=== PATIENT | male | born 1930 | race Hispanic/Latino ===

== ENCOUNTER 2017-10-09 23:07 | Inpatient (IN) | payer MEDICARE, MEDICAID ==
[~2017-10-09] VITALS: Ht 177.8 cm; Wt 86.2 kg
[~2017-10-09 23:07] MED LIST: ACETAMINOP500 MG/51 ORAL; ALBUTEROL0.63 MG/3 HHN; AMIODARONE HCL400 M1 ORAL; AMIODARONE50 MG/1 ML PO; ATIVAN1 MG ORAL; ATORVASTATIN CA10 MG ORAL; ATROVENT HFA12.9 GM IH; CALCIUM 500 +1 EAC3 PO; COUMADIN1 MG ORAL; DIGOXIN125 MCG ORAL; FAMOTIDINE20 MG ORAL; FLOMAX0.4 MG ORAL; FUROSEMIDE40 MG ORAL; HYDROCHLOROTH12.5 M2 ORAL; LANOXIN0.25 MG/ML PO; LASIX40 MG ORAL; LOPRESSOR5 MG/5 ML PO; METOPROLOL TART50 M1 ORAL; METOPROLOL TART50 MG ORAL; MORPHINE 22 MG/1 ML IV; MULTI VITAMIN1 EACH ORAL; NORCO 10-325 T1 EACH ORAL; NORVASC10 MG ORAL; POTASSIUM CHLO20 ME1 ORAL; PROSCAR5 MG ORAL; RANITIDINE50 MG/2 ML PO; SYNTHROID25 MCG ORAL; TAMSULOSIN HCL0.4 MG ORAL; UNASYN3 GM IVPB; VANCOCIN250 MG IVPB; VANCOMYCIN1 GM/2502 IVPB; XARELTO10 MG ORAL; ZAROXOLYN2.5 MG ORAL; ZOSYN 3.373.375 GM/1 IVPB; ZOVIRAX OINT1 APPLI1 TOPIC; ZOVIRAX200 M1 PO
[2017-10-10] VITALS (7 sets, daily range): BP systolic 117–140; BP diastolic 68–89
[2017-10-10] MEDS ORDERED: LORazepam Inj 2mg/ml 1ml IV PRN (00:30)
[2017-10-10] MEDS ORDERED: Zolpidem 5mg tab ORAL PRN (00:30)
[2017-10-10] MEDS ORDERED: Mylanta II UD 30ml ORAL PRN (00:30)
[2017-10-10] MEDS ORDERED: Miralax 17gm pkt ORAL PRN (00:30)
[2017-10-10] MEDS ORDERED: Morphine Sulfate 2mg/ml Inj IVP PRN (00:30)
[2017-10-10 00:37] LABS: BASOPHILS % (AUTO) 0.9 % (0.0-2.0); EOSINOPHILS % (AUTO) 15.6 % (0.0-3.0); HEMOGLOBIN 12.2 G/DL (14.2-18.0); LYMPHOCYTES % (AUTO) 14.7 % (20.0-45.0); MEAN CORPUSCULAR VOLUME 91 FL (80-99); MONOCYTES % (AUTO) 7.8 % (1.0-10.0); PLATELET COUNT 156 K/UL (150-450); RED BLOOD COUNT 4.05 M/UL (4.70-6.10); RED CELL DISTRIBUTION WIDTH 12.6 % (11.6-14.8); WHITE BLOOD COUNT 8.3 K/UL (4.8-10.8)
[2017-10-10] MEDS ORDERED: TAMSULOSIN HCL0.4 MG ORAL (00:39)
[2017-10-10] MEDS ORDERED: ACETAMINOPHEN325 M1 ORAL (00:39)
[2017-10-10] MEDS ORDERED: DUONEB 0.5-3(2.53 ML HHN (00:39)
[2017-10-10] MEDS ORDERED: MIRALAX17 G2 ORAL (00:39)
[2017-10-10] MEDS ORDERED: METOPROLOL TART50 M1 ORAL (00:39)
[2017-10-10] MEDS ORDERED: XARELTO15 MG ORAL (00:39)
[2017-10-10] MEDS ORDERED: TRAMADOL HCL50 MG ORAL (00:39)
[2017-10-10] MEDS ORDERED: DONEPEZIL HCL10 MG ORAL (00:39)
[2017-10-10] MEDS ORDERED: PROSCAR5 MG ORAL (00:39)
[2017-10-10] MEDS ORDERED: HYDRALAZINE HCL50 MG ORAL (00:39)
[2017-10-10] MEDS ORDERED: KEFLEX500 MG ORAL (00:55)
[2017-10-10] MEDS ORDERED: DOXYCYCLINE MO100 MG ORAL (00:55)
[2017-10-10] MEDS ORDERED: Vancomycin 1.5gm/D5W 250ml 250 ML IVPB ONE (01:00)
--- NOTE | 2017-10-10 01:05 | Emergency Room Report ---
History of Present Illness General Chief Complaint: Lower Extremity Injury Source: Patient, Medical Record Present Illness HPI 87-year-old male, coming from [facility], with right lower tejeda and knee pain swelling and redness for one week. Patient denies any trauma. No fever no chills. Just pain to the area of redness. Allergies: Coded Allergies: No Known Allergies (Verified , 01/31/08) Patient History Past Medical History: see triage record Past Surgical History: none Pertinent Family History: none Reviewed Nursing Documentation: PMH: Agreed, PSxH: Agreed Nursing Documentation-PMH Hx Cardiac Problems: Yes - anemia, heart failure , cellulitis Hx Hypertension: Yes Hx COPD: Yes - VENOUS THROMBOSIS Hx Cancer: No Hx Gastrointestinal Problems: No Hx Dialysis: No - urinary obstruction, BPH, ckd Hx Neurological Problems: Yes Hx Cerebrovascular Accident: Yes Hx Dementia: Yes Hx Alzheimer's Disease: Yes Review of Systems All Other Systems: negative except mentioned in HPI Physical Exam Vital Signs Date Time Temp Pulse Resp B/P (MAP) Pulse Ox O2 Delivery O2 Flow Rate FiO2 10/09/17 23:08 97.7 100 18 150/98 98 Room Air Sp02 EP Interpretation: reviewed, normal General Appearance: alert, GCS 15, non-toxic, mild distress Head: normocephalic, atraumatic Eyes: bilateral eye normal inspection, bilateral eye PERRL, bilateral eye EOMI ENT: normal ENT inspection, normal pharynx, normal voice, moist mucus membranes Neck: normal inspection, full range of motion, supple Respiratory: normal inspection, lungs clear, normal breath sounds, no respiratory distress, no retraction, no wheezing, speaking full sentences, chest symmetrical Cardiovascular #1: normal inspection, regular rate, rhythm, normal capillary refill Cardiovascular #2: 2+ radial (R), 2+ radial (L) Gastrointestinal: normal inspection, non tender, soft, non-distended, no guarding Musculoskeletal: other - Right lateral ankle with mild edema, erythema measuring 5 x 5 cm, tender to palpation, full range of motion of ankle no gross bony deformities Neurologic: normal inspection, alert, oriented x3, responsive, motor strength/ tone normal, sensory intact, normal gait, speech normal Psychiatric: normal inspection, judgement/insight normal, memory normal Skin: normal inspection, normal color, no rash, warm/dry, well hydrated, normal turgor Medical Decision Making Diagnostic Impression: Primary Impression: Cellulitis of leg ER Course 87 yo M with RLE redness/pain DDX: Cellulitis / benign dermatitis No crepitus / pain out of proportion / rapid spreading for concern for nec fasc Plan: labs, Antibiotics Anticipate admission ER course: Patient received antibiotics for cellulitis. Remains nontoxic appearing. There has been no rapid spread of redness/swelling. Disposition: Patient will be admitted to the [facility] floor for continuation of IV antibiotics Discussed with Dr Ruiz Please note that this Emergency Department Report was dictated using [employer] steam yacht technology software, occasionally this can lead to erroneous entry secondary to interpretation by the dictation equipment. Laboratory Tests Test 10/09/17 00:34 White Blood Count 8.3 K/UL (4.8-10.8) Red Blood Count 4.05 M/UL (4.70-6.10) L Hemoglobin 12.2 G/DL (14.2-18.0) L Hematocrit 37.0 % (42.0-52.0) L Mean Corpuscular Volume 91 FL (80-99) Mean Corpuscular Hemoglobin 30.1 PG (27.0-31.0) Mean Corpuscular Hemoglobin Concent 32.9 G/DL (32.0-36.0) Red Cell Distribution Width 12.6 % (11.6-14.8) Platelet Count 156 K/UL (150-450) Mean Platelet Volume 8.2 FL (6.5-10.1) Neutrophils (%) (Auto) 61.0 % (45.0-75.0) Lymphocytes (%) (Auto) 14.7 % (20.0-45.0) L Monocytes (%) (Auto) 7.8 % (1.0-10.0) Eosinophils (%) (Auto) 15.6 % (0.0-3.0) H Basophils (%) (Auto) 0.9 % (0.0-2.0) Sodium Level 140 MMOL/L (136-145) Potassium Level 3.8 MMOL/L (3.5-5.1) Chloride Level 106 MMOL/L (98-107) Carbon Dioxide Level 25 MMOL/L (21-32) Anion Gap 9 mmol/L (5-15) Blood Urea Nitrogen 26 mg/dL (7-18) H Creatinine 1.5 MG/DL (0.55-1.30) H Estimate Glomerular Filtration Rate mL/min (>60) Glucose Level 102 MG/DL (74-106) Calcium Level 9.0 MG/DL (8.5-10.1) Total Bilirubin 0.3 MG/DL (0.2-1.0) Aspartate Amino Transferase (AST) 18 U/L (15-37) Alanine Aminotransferase (ALT) 10 U/L (12-78) L Alkaline Phosphatase 80 U/L (46-116) Total Protein 6.9 G/DL (6.4-8.2) Albumin 2.9 G/DL (3.4-5.0) L Globulin 4.0 g/dL Albumin/Globulin Ratio 0.7 (1.0-2.7) L Last Vital Signs Date Time Temp Pulse Resp B/P (MAP) Pulse Ox O2 Delivery O2 Flow Rate FiO2 10/09/17 23:08 97.7 100 18 150/98 98 Room Air Disposition: ADMITTED INPATIENT Condition: Serious Scripts Doxycycline Monohydrate* (DOXYCYCLINE MONOHYDRATE*) 100 Mg Capsule 100 MG ORAL Q12H for 7 Days, #14 CAP 0 Refills Prov: Mario Barriga M.D. 10/10/17 Cephalexin* (KEFLEX*) 500 Mg Capsule 500 MG ORAL Q6H, #28 CAP 0 Refills Prov: Mario Barriga M.D. 10/10/17 Mario Barriga M.D. Oct 10, 2017 01:05
[2017-10-10 01:17] LABS: ANION GAP 9 mmol/L (5-15); BLOOD UREA NITROGEN 26 mg/dL (7-18); CARBON DIOXIDE 25 MMOL/L (21-32); CHLORIDE 106 MMOL/L (98-107); CREATININE 1.5 MG/DL (0.55-1.30); POTASSIUM 3.8 MMOL/L (3.5-5.1); SODIUM 140 MMOL/L (136-145)
[2017-10-10 01:21] LABS: ALANINE AMINOTRANSFERASE 10 U/L (12-78); ALBUMIN 2.9 G/DL (3.4-5.0); ALBUMIN/GLOBULIN RATIO 0.7 (1.0-2.7); ALKALINE PHOSPHATASE 80 U/L (46-116); ASPARTATE AMINO TRANSFERASE 18 U/L (15-37); BILIRUBIN,TOTAL 0.3 MG/DL (0.2-1.0)
[2017-10-10] MEDS: Levothyroxine 25mcg tab ORAL SCH (06:19)
[2017-10-10] MEDS ORDERED: Digoxin 0.125mg tab ORAL SCH (09:00)
[2017-10-10] MEDS: Xarelto 10mg tab ORAL SCH (10:22)
[2017-10-10] MEDS: Tamsulosin 0.4mg cap ORAL SCH (10:22)
[2017-10-10] MEDS: Amiodarone 200mg tab ORAL SCH (10:22)
--- NOTE | 2017-10-10 14:34 | Consultation ---
Consult Note Assessment/Plan A/ 1) Cellulitis RLE 2) Edema 3) h/o chronic RLE vein thrombosis 4) Abnormal gait P/ 1) Abx per ID 2) Venous ultrasound done, results pending 3) X-rays of RLE ordered 4) Arterial ultz of BLE ordered Thank you Dr Ruiz. Bright Spencer DPM Oct 10, 2017 14:33
--- NOTE | 2017-10-10 18:50 | Consultation ---
History of Present Illness General Date patient seen: Oct 10, 2017 Chief Complaint: Lower Extremity Injury Present Illness HPI 87-year-old male with hx of COPD, CVA, HTN, dvt, CHF coming from group home brought in by ambulance with CC of right lower tejeda and knee pain swelling and redness for one week. Patient denies any trauma. No fever no chills. Just pain to the area of redness. Pt was diagnosed to have cellulitis and admitted for further evaluation. He was found to have ATN as well. Allergies: Coded Allergies: No Known Allergies (Verified , 01/31/08) Medication History Scheduled Acyclovir (Zovirax), 800 MG PO QID, (Reported) Amiodarone Hcl* (Amiodarone Hcl*), 200 MG ORAL DAILY, (Reported) Amlodipine Besylate (Norvasc), 10 MG ORAL DAILY, (Reported) Atorvastatin Calcium* (Lipitor*), 10 MG ORAL BEDTIME, (Reported) Calcium Carbonate/Vitamin D3 (Calcium 500 + D Tablet), 1 EACH PO BID, (Reported) Cephalexin* (Keflex*), 500 MG ORAL Q6H Digoxin* (Digoxin*), 125 MCG ORAL DAILY, (Reported) Donepezil Hcl* (Donepezil Hcl*), 10 MG ORAL DAILY, (Reported) Doxycycline Monohydrate* (Doxycycline Monohydrate*), 100 MG ORAL Q12H Famotidine (Famotidine), 20 MG ORAL DAILY, (Reported) Finasteride* (Proscar*), 5 MG ORAL DAILY, (Reported) Finasteride* (Proscar*), 5 MG ORAL DAILY, (Reported) Furosemide* (Lasix*), 40 MG ORAL DAILY, (Reported) Hydralazine Hcl* (Hydralazine Hcl*), 50 MG ORAL THREE TIMES A DAY, (Reported) Hydrochlorothiazide* (Hydrochlorothiazide*), 12.5 MG ORAL DAILY, (Reported) Levothyroxine Sodium* (Synthroid*), 25 MCG ORAL ACBREAKFAST, (Reported) Lorazepam* (Ativan*), 1 MG ORAL BEDTIME, (Reported) Metolazone (Metolazone), 5 MG ORAL DAILY, (Reported) Metoprolol Tartrate* (Metoprolol Tartrate*), 25 MG ORAL EVERY 12 HOURS, ( Reported) Metoprolol Tartrate* (Metoprolol Tartrate*), 50 MG ORAL DAILY, (Reported) Multivitamin (Multi Vitamin Daily), 1 TAB ORAL DAILY, (Reported) Ungjzxhhkzcm-Juvb-Xfggrdcx,Iso (Zosyn 3.375 Gm Pre Mix-Bag), 3.375 GM IVPB EVERY 8 HOURS, (Reported) Ranitidine Hcl* (Ranitidine Hcl*), 150 MG PO QHS, (Reported) Rivaroxaban (Xarelto*), 20 MG ORAL DAILY, (Reported) Rivaroxaban (Xarelto), 15 MG ORAL DAILY, (Reported) Tamsulosin HCl (Flomax), 0.4 MG ORAL DAILY, (Reported) Tamsulosin Hcl (Tamsulosin Hcl*), 0.4 MG ORAL BEDTIME, (Reported) Vancomycin HCl (Vancocin HCl), 1,000 MG IVPB DAILY, (Reported) Vancomycin Hcl/D5w (Vancomycin-D5w 1 G/250 Ml), 1.25 GM IVPB Q24H, (Reported) Scheduled PRN Acetaminophen (Acetaminophen), 500 MG ORAL Q4H PRN for Pain Scale (3-5), ( Reported) Acetaminophen* (Acetaminophen 325MG Tablet*), 650 MG ORAL Q6H PRN for Fever/ Headache/Mild Pain, (Reported) Acyclovir (Zovirax), 1 APPLIC TOPIC Q12HR PRN for RASH, (Reported) Albuterol Sulfate (Albuterol Sulfate), 0.63 MG HHN Q6HR PRN for Shortness of Breath, (Reported) Hydrocodone Bit/Acetaminophen 10-325* (Lindsay 10-325*), 1 TAB ORAL Q4H PRN for For Pain, (Reported) Ipratropium/Albuterol Sulfate (DuoNeb 0.5-3(2.5)mg/3ml), 3 ML HHN EVERY 8 HOURS PRN for Shortness of Breath, (Reported) Morphine Sulfate* (Morphine Sulfate*), 2 MG IV Q4HR PRN for For Pain, (Reported) Polyethylene Glycol 3350* (Miralax*), 17 GM ORAL DAILY PRN for Constipation, ( Reported) Tramadol Hcl* (Ultram*), 50 MG ORAL Q8HR PRN for For Pain, (Reported) Miscellaneous Medications Ipratropium Barry (Atrovent Hfa), 12.9 GM IH, (Reported) Patient History Healthcare decision maker Resuscitation status Full Code Advanced Directive on File Past Medical/Surgical History Past Medical/Surgical History: (1) DVT (deep venous thrombosis) (2) BPH (benign prostatic hyperplasia) (3) HTN (hypertension) (4) A-fib (5) Dementia Review of Systems Constitutional: Reports: no symptoms, weakness Skin: Reports: rash Physical Exam General Appearance: WD/WN Lines, tubes and drains: peripheral, PICC HEENT: normocephalic, atraumatic Neck: non-tender, normal alignment Respiratory/Chest: chest wall non-tender, lungs clear Breasts: no masses Cardiovascular/Chest: normal peripheral pulses Abdomen: normal bowel sounds, non tender Genitourinary/Rectal: normal genital exam Last 24 Hour Vital Signs Date Time Temp Pulse Resp B/P (MAP) Pulse Ox O2 Delivery O2 Flow Rate FiO2 10/10/17 16:00 97.2 100 20 139/68 98 10/10/17 12:00 97.3 100 20 130/74 96 10/10/17 10:22 105 128/72 10/10/17 10:16 105 128/72 10/10/17 08:00 97.9 100 20 125/81 96 10/10/17 08:00 Room Air 10/10/17 04:30 97.4 111 19 133/89 98 10/10/17 03:41 97.7 18 117/76 98 Room Air 10/09/17 23:08 97.7 100 18 150/98 98 Room Air Intake and Output 10/09/17 10/10/17 19:00 07:00 Intake Total 120 ml Balance 120 ml Intake Oral 120 ml # Voids 1 Height (Feet): 5 Height (Inches): 10.00 Weight (Pounds): 190 Medications Current Medications Medications (Trade) Dose Ordered Sig/Brissa Route PRN Reason Start Time Stop Time Status Last Admin Dose Admin Acetaminophen (Tylenol) 650 mg Q4H PRN ORAL fever 10/10/17 00:30 11/09/17 00:29 Al Hydroxide/Mg Hydroxide (Mylanta II) 30 ml Q6H PRN ORAL dyspepsia 10/10/17 00:30 11/09/17 00:29 Amiodarone HCl (Cordarone) 200 mg DAILY ORAL 10/10/17 09:00 11/09/17 08:59 10/10/17 10:22 Amlodipine Besylate (Norvasc) 10 mg DAILY ORAL 10/10/17 09:00 11/09/17 08:59 10/10/17 10:22 Dextrose (Dextrose 50%) STAT PRN IV Hypoglycemia 10/10/17 00:30 11/09/17 00:29 Digoxin (Lanoxin) 0.125 mg DAILY ORAL 10/10/17 17:30 11/09/17 17:29 Levothyroxine Sodium (Synthroid) 25 mcg ACBREAKFAST ORAL 10/10/17 06:30 11/09/17 06:29 10/10/17 06:19 Lorazepam (Ativan 2mg/ml 1ml) 0.5 mg Q4H PRN IV For Anxiety 10/10/17 00:30 10/17/17 00:29 Morphine Sulfate (Morphine Sulfate) 1 mg Q4H PRN IVP For Pain 10/10/17 00:30 10/17/17 00:29 Ondansetron HCl (Zofran) 4 mg Q6H PRN IVP Nausea & Vomiting 10/10/17 00:30 11/09/17 00:29 Polyethylene Glycol (Miralax) 17 gm HSPRN PRN ORAL Constipation 10/10/17 00:30 11/09/17 00:29 Rivaroxaban (Xarelto) 20 mg DAILY ORAL 10/10/17 09:00 11/09/17 08:59 10/10/17 10:22 Tamsulosin HCl (Flomax) 0.4 mg DAILY ORAL 10/10/17 09:00 11/09/17 08:59 10/10/17 10:22 Zolpidem Tartrate (Ambien) 5 mg HSPRN PRN ORAL Insomnia 10/10/17 00:30 10/17/17 00:29 Assessment/Plan Problem List: (1) Cellulitis of leg ICD Codes: L03.119 - Cellulitis of unspecified part of limb SNOMED: 239259949 (2) HTN (hypertension) ICD Codes: I10 - Essential (primary) hypertension SNOMED: 31940133 (3) A-fib ICD Codes: I48.91 - Unspecified atrial fibrillation SNOMED: 69100139 (4) Dementia ICD Codes: F03.90 - Dementia SNOMED: 96664077 (5) BPH (benign prostatic hyperplasia) ICD Codes: N40.0 - Enlarged prostate without lower urinary tract symptoms SNOMED: 581551516, 589333070 (6) DVT (deep venous thrombosis) ICD Codes: I82.409 - Acute embolism and thrombosis of unspecified deep veins of unspecified lower extremity SNOMED: 910479857 Assessment/Plan vascular studies iv abx check cultures check electroltyes dvt prophylaxis symptomatic treatment RADHA REEVES Oct 10, 2017 18:49
[2017-10-10] MEDS: Digoxin 0.125mg tab ORAL SCH (19:05)
--- NOTE | 2017-10-10 19:22 | Diagnostic Imaging Report ---
Indication: Pain Technique: XRAY Ankle 2v R Comparison: None Findings: No acute fracture. Ankle mortise is intact on these nonstress views. No radiopaque foreign body is identified. There is soft tissue reticulation suggestive of edema. Impression: No evidence of acute fracture or dislocation. Findings suggestive of subcutaneous edema. Correlate clinically.
--- NOTE | 2017-10-10 19:23 | Diagnostic Imaging Report ---
Indication: Pain Technique: XRAY Leg Lower Tib Fib 2v R Comparison: None Findings: There is no acute fracture or dislocation. Partially visualized knee and ankle joints preserved. Atherosclerotic vascular calcifications noted. No radiopaque foreign body seen. Nonspecific soft tissue calcification. Impression: No acute bony or articular abnormality.
[2017-10-11] VITALS: BP 135/74
[2017-10-11 04:00] VITALS: BP 136/85
[2017-10-11] MEDS: Levothyroxine 25mcg tab ORAL SCH (06:24)
--- NOTE | 2017-10-11 07:52 | Pulmonology Progress Note ---
Assessment/Plan Assessment/Plan ASSESSMENT cellulitis RLE chronic DVT RLE HTN PAF BPH CRI COPD hx of CVA hypothyroidism PLAN OF CARE MS floor abx ID consult bl cx prel negative venous Duplex + chronic recanalized RLE thrombus a/coag with Xarelto Arterial Duplex BLE -pending egg setter follows X ray R T/F and R ankle - no evidence of acute fracture or dislocation BP management with CCB and optimize as needed continue Digoxin, check level a/coagulation with Xarelto for PAF and chronic DVT, no evidence of bleeding HR stable lipid panel and TSH WNL pain management bowel regimen O2 HHN prn monitor renal parameters, lytes, avoid nephrotoxic, patient with a known hx of CRI PT eval and Rx case discussed and evaluated by supervising physician Subjective Allergies: Coded Allergies: No Known Allergies (Verified , 01/31/08) Subjective afebrile, no leukocytosis pain RLE Objective Last 24 Hour Vital Signs Date Time Temp Pulse Resp B/P (MAP) Pulse Ox O2 Delivery O2 Flow Rate FiO2 10/11/17 04:00 97.0 94 20 136/85 92 10/11/17 00:00 98.1 98 20 135/74 95 10/10/17 20:00 98.1 96 20 140/86 97 10/10/17 19:05 85 10/10/17 16:00 Room Air 10/10/17 16:00 97.2 100 20 139/68 98 10/10/17 12:00 Room Air 10/10/17 12:00 97.3 100 20 130/74 96 10/10/17 10:22 105 128/72 10/10/17 10:16 105 128/72 10/10/17 08:00 97.9 100 20 125/81 96 10/10/17 08:00 Room Air Intake and Output 10/10/17 10/11/17 19:00 07:00 Intake Total 300 ml Output Total 550 ml Balance 300 ml -550 ml Intake Oral 300 ml Output Urine Total 550 ml # Voids 4 3 General Appearance: other - elderly bedridden male in NAD HEENT: normocephalic, atraumatic, anicteric, mucous membranes moist Respiratory/Chest: lungs clear, no accessory muscle use Cardiovascular: normal rate, no JVD Abdomen: normal bowel sounds, soft, non tender, non distended Extremities: other - RLE with erythema, TTP Neurologic/Psychiatric: abnormal gait, alert, responsive Musculoskeletal: atrophy - BLE Microbiology Date/Time Source Procedure Growth Status 10/10/17 00:20 Blood Blood Culture - Preliminary NO GROWTH AFTER 24 HOURS Resulted 10/10/17 00:15 Blood Blood Culture - Preliminary NO GROWTH AFTER 24 HOURS Resulted Current Medications Medications (Trade) Dose Ordered Sig/Brissa Route PRN Reason Start Time Stop Time Status Last Admin Dose Admin Acetaminophen (Tylenol) 650 mg Q4H PRN ORAL fever 10/10/17 00:30 11/09/17 00:29 Al Hydroxide/Mg Hydroxide (Mylanta II) 30 ml Q6H PRN ORAL dyspepsia 10/10/17 00:30 11/09/17 00:29 Amiodarone HCl (Cordarone) 200 mg DAILY ORAL 10/10/17 09:00 11/09/17 08:59 10/10/17 10:22 Amlodipine Besylate (Norvasc) 10 mg DAILY ORAL 10/10/17 09:00 11/09/17 08:59 10/10/17 10:22 Dextrose (Dextrose 50%) STAT PRN IV Hypoglycemia 10/10/17 00:30 11/09/17 00:29 Digoxin (Lanoxin) 0.125 mg DAILY ORAL 10/10/17 17:30 11/09/17 17:29 10/10/17 19:05 Levothyroxine Sodium (Synthroid) 25 mcg ACBREAKFAST ORAL 10/10/17 06:30 11/09/17 06:29 10/11/17 06:24 Lorazepam (Ativan 2mg/ml 1ml) 0.5 mg Q4H PRN IV For Anxiety 10/10/17 00:30 10/17/17 00:29 Morphine Sulfate (Morphine Sulfate) 1 mg Q4H PRN IVP For Pain 10/10/17 00:30 10/17/17 00:29 Ondansetron HCl (Zofran) 4 mg Q6H PRN IVP Nausea & Vomiting 10/10/17 00:30 11/09/17 00:29 Polyethylene Glycol (Miralax) 17 gm HSPRN PRN ORAL Constipation 10/10/17 00:30 11/09/17 00:29 Rivaroxaban (Xarelto) 20 mg DAILY ORAL 10/10/17 09:00 3/3/18 08:59 10/10/17 10:22 Tamsulosin HCl (Flomax) 0.4 mg DAILY ORAL 10/10/17 09:00 11/09/17 08:59 10/10/17 10:22 Zolpidem Tartrate (Ambien) 5 mg HSPRN PRN ORAL Insomnia 10/10/17 00:30 10/17/17 00:29 Daron ([facility])Symone NP Oct 11, 2017 07:52
[2017-10-11 08:09] VITALS: BP 135/78
[2017-10-11] MEDS: Tamsulosin 0.4mg cap ORAL SCH (08:43)
[2017-10-11] MEDS: Xarelto 10mg tab ORAL SCH (08:43)
[2017-10-11] MEDS: Amiodarone 200mg tab ORAL SCH (08:44)
[2017-10-11 08:51] LABS: BASOPHILS % (AUTO) 1.3 % (0.0-2.0); EOSINOPHILS % (AUTO) 16.7 % (0.0-3.0); HEMATOCRIT 38.5 % (42.0-52.0); HEMOGLOBIN 12.8 G/DL (14.2-18.0); LYMPHOCYTES % (AUTO) 16.2 % (20.0-45.0); MEAN CORPUSCULAR VOLUME 93 FL (80-99); MONOCYTES % (AUTO) 5.5 % (1.0-10.0); NEUTROPHILS % (AUTO) 60.3 % (45.0-75.0); PLATELET COUNT 171 K/UL (150-450); RED BLOOD COUNT 4.15 M/UL (4.70-6.10); RED CELL DISTRIBUTION WIDTH 12.4 % (11.6-14.8); WHITE BLOOD COUNT 7.2 K/UL (4.8-10.8)
[2017-10-11 09:07] LABS: ALANINE AMINOTRANSFERASE 12 U/L (12-78); ALBUMIN 3.1 G/DL (3.4-5.0); ALBUMIN/GLOBULIN RATIO 0.8 (1.0-2.7); ALKALINE PHOSPHATASE 78 U/L (46-116); ANION GAP 9 mmol/L (5-15); ASPARTATE AMINO TRANSFERASE 20 U/L (15-37); BILIRUBIN,TOTAL 0.6 MG/DL (0.2-1.0); BLOOD UREA NITROGEN 20 mg/dL (7-18); CALCIUM 9.1 MG/DL (8.5-10.1); CARBON DIOXIDE 27 MMOL/L (21-32); CHLORIDE 105 MMOL/L (98-107); CHOLESTEROL 154 MG/DL (< 200); CREATININE 1.5 MG/DL (0.55-1.30); HDL CHOLESTEROL 42 MG/DL (40-60); POTASSIUM 3.9 MMOL/L (3.5-5.1); SODIUM 140 MMOL/L (136-145); TRIGLYCERIDES 63 MG/DL (30-150)
--- NOTE | 2017-10-11 09:48 | Wound Care Consultation ---
Wound Assessment Wound Assessment : Wound Number: 1 Wound Present on Admission: Yes New Wound: No Status Change of Wound: No Wound Location Body Site Modif: left, right, lower Wound Location Body Site: leg Wound Type: other - cellulitis John Test: Does not John Percent of Wound [place]/Red: 100 Wound Drainage Amount: None Wound Drainage Odor: None/Absent Tissue Surrounding Wound: Erythemic Wound General Appearance: Reddened Wound Comment #1 Cellulitis of Left and right lower legs. No open wound and no drainage noted. Follow MD's order. JORDIN DIAMOND RN Oct 11, 2017 09:48
[2017-10-11] MEDS: Digoxin 0.125mg tab ORAL SCH (10:37)
--- NOTE | 2017-10-11 11:25 | General Progress Note ---
Assessment/Plan Problem List: (1) CHF (congestive heart failure) ICD Codes: I50.9 - Heart failure, unspecified SNOMED: 51959415 (2) Sepsis ICD Codes: A41.9 - Sepsis, unspecified organism SNOMED: 96910078 (3) Hypothyroid ICD Codes: E03.9 - Hypothyroidism, unspecified SNOMED: 22238876 (4) Dyspnea ICD Codes: R06.00 - Dyspnea, unspecified SNOMED: 476605425, 687944714 (5) A-fib ICD Codes: I48.91 - Unspecified atrial fibrillation SNOMED: 77439105 (6) DVT (deep venous thrombosis) ICD Codes: I82.409 - Acute embolism and thrombosis of unspecified deep veins of unspecified lower extremity SNOMED: 806280507 (7) HTN (hypertension) ICD Codes: I10 - Essential (primary) hypertension SNOMED: 81625154 (8) BPH (benign prostatic hyperplasia) ICD Codes: N40.0 - Enlarged prostate without lower urinary tract symptoms SNOMED: 243086333, 217521825 (9) Cellulitis of leg ICD Codes: L03.119 - Cellulitis of unspecified part of limb SNOMED: 881951655 Status: unchanged Assessment/Plan ot pt diet wound care cbc bmp am Subjective Constitutional: Reports: weakness Allergies: Coded Allergies: No Known Allergies (Verified , 01/31/08) All Systems: reviewed and negative except above Subjective sl sob Objective Last 24 Hour Vital Signs Date Time Temp Pulse Resp B/P (MAP) Pulse Ox O2 Delivery O2 Flow Rate FiO2 10/11/17 10:37 94 10/11/17 08:46 112 121/73 10/11/17 08:09 97.9 96 21 135/78 97 Room Air 10/11/17 04:00 97.0 94 20 136/85 92 10/11/17 00:00 98.1 98 20 135/74 95 10/10/17 20:00 98.1 96 20 140/86 97 10/10/17 19:05 85 10/10/17 16:00 Room Air 10/10/17 16:00 97.2 100 20 139/68 98 10/10/17 12:00 Room Air 10/10/17 12:00 97.3 100 20 130/74 96 Intake and Output 10/10/17 10/11/17 19:00 07:00 Intake Total 300 ml Output Total 550 ml Balance 300 ml -550 ml Intake Oral 300 ml Output Urine Total 550 ml # Voids 4 3 Laboratory Tests 10/11/17 07:56: White Blood Count 7.2, Red Blood Count 4.15L, Hemoglobin 12.8L, Hematocrit 38.5L , Mean Corpuscular Volume 93, Mean Corpuscular Hemoglobin 30.8, Mean Corpuscular Hemoglobin Concent 33.2, Red Cell Distribution Width 12.4, Platelet Count 171, Mean Platelet Volume 9.2, Neutrophils (%) (Auto) 60.3, Lymphocytes (% ) (Auto) 16.2L, Monocytes (%) (Auto) 5.5, Eosinophils (%) (Auto) 16.7H, Basophils (%) (Auto) 1.3, Sodium Level 140, Potassium Level 3.9, Chloride Level 105, Carbon Dioxide Level 27, Anion Gap 9, Blood Urea Nitrogen 20H, Creatinine 1.5H, Estimat Glomerular Filtration Rate , Glucose Level 104, Calcium Level 9.1 , Total Bilirubin 0.6, Aspartate Amino Transf (AST/SGOT) 20, Alanine Aminotransferase (ALT/SGPT) 12, Alkaline Phosphatase 78, Pro-B-Type Natriuretic Peptide 1577H, Total Protein 7.1, Albumin 3.1L, Globulin 4.0, Albumin/Globulin Ratio 0.8L, Triglycerides Level 63, Cholesterol Level 154, LDL Cholesterol 109H , HDL Cholesterol 42, Cholesterol/HDL Ratio 3.7, Thyroid Stimulating Hormone ( TSH) 3.016, Digoxin Level < 0.3L Height (Feet): 5 Height (Inches): 10.00 Weight (Pounds): 190 General Appearance: lethargic EENT: normal ENT inspection Neck: normal alignment Cardiovascular: normal peripheral pulses, normal rate, regular rhythm Respiratory/Chest: chest wall non-tender, lungs clear, normal breath sounds Abdomen: normal bowel sounds, non tender, soft Extremities: normal inspection Edema: 1+ Arm (L), 1+ Arm (R), 1+ Leg (L), 1+ Leg (R), 1+ Pedal (L), 1+ Pedal ( R), 1+ Generalized Neurologic: responsive, motor weakness Skin: normal pigmentation, warm/dry Objective r ankle redness up to mid tejeda LETY MUELLER Oct 11, 2017 11:25
--- NOTE | 2017-10-11 12:11 | General Progress Note ---
Progress Note Progress Note [id number] full note dictated ANNIE MARQUEZ Oct 11, 2017 12:11
[2017-10-11 12:15] VITALS: BP 129/86
--- NOTE | 2017-10-11 12:54 | Consultation ---
DATE OF CONSULTATION: 10/10/2017 REQUESTING PHYSICIAN: Ricardo Ruiz D.O. CONSULTING PHYSICIAN: Bright Spencer D.P.M. REASON FOR CONSULTATION: Right lower extremity pain. HISTORY OF PRESENT ILLNESS: The patient is an 87-year-old male who was admitted to [facility] today for cellulitis of the right lower extremity. The patient states that he noticed pain over the past week to 2 weeks in the right lower extremity that has been worsening. He does not recall any traumatic events or inciting events, and is concerned about the swelling in his right lower extremity. He denies any chest pain or shortness of breath. PAST MEDICAL HISTORY: Significant for, 1. Atrial fibrillation. 2. Chronic kidney disease. 3. Hypertensive heart disease. 4. Benign prostatic hypertrophy. 5. History of hypothyroidism. 6. Anemia. 7. Chronic obstructive pulmonary disease. 8. History of deep vein thrombosis. ALLERGIES: He has no known drug allergies. MEDICATIONS: Per MAR and include morphine for pain. SOCIAL HISTORY: The patient [facility] in a [facility] facility. FAMILY HISTORY: Noncontributory. REVIEW OF SYSTEMS: HEENT: The patient denies any headaches, blurred vision, or ringing in the ears. CARDIOVASCULAR: The patient denies any chest pain or shortness of breath. GENITOURINARY: The patient denies any urgency, frequency, or burning upon urination or hematuria. GASTROINTESTINAL: The patient denies any constipation, diarrhea, or blood in the stool. PHYSICAL EXAMINATION: VITAL SIGNS: Temperature is 97.3, pulse 100, respirations 20, blood pressure is 130/74, and saturating 96% on room air. EXTREMITIES: Lower extremity physical exam, vascular, nonpalpable pedal pulses noted bilaterally. Feet are bilaterally cool. There is edema noted bilaterally, right worse than left. No cyanosis of the toes noted. DERMATOLOGICAL: There is no open sores or lesions noted. There is hyperpigmentation of skin noted, more so on the right lower extremity. There is a focus of edematous changes to the right lower extremity in the posterior calf area. No infection are noted bilaterally. Skin is dry and dystrophic. Venous stasis changes are noted. NEUROLOGICAL: Protective threshold is intact. MUSCULOSKELETAL: He has 4/5 muscle strength noted in anterolateral and posterior muscle groups of bilateral lower extremities. The patient ambulates with a walker and at times with a wheelchair. LABORATORY DATA: White blood cell count is 8.3, hemoglobin and hematocrit is 12.2 and 37.0, platelet count is 156. Potassium is 3.6, BUN is 26, creatinine is 1.5, glucose is 102, albumin is 2.9. Venous ultrasound done on this admission shows recanalized chronic thrombus of the superficial femoral vein. Remainder of the deep venous system is within normal limits. There is no evidence of any common femoral or popliteal or calf vein thrombosis of the right lower extremity. Left lower extremity is patent. ASSESSMENT: 1. Cellulitis, right lower extremity. 2. Edema. 3. History of chronic right lower extremity venous thrombosis. 4. Abnormal gait. PLAN: 1. Antibiotics per ID. 2. Venous ultrasound done and reviewed. 3. X-ray to the right lower extremity ordered including a tib-fib and ankle films. 4. Arterial ultrasound of bilateral lower extremities ordered. Thank you for the courtesy of this consultation. Bright Spencer D.P.M. DR: GILLES JOB#: [id number] CC:
--- NOTE | 2017-10-11 12:56 | History and Physical Report ---
DATE OF ADMISSION: 10/10/2017 TIME SEEN: At 1 p.m. ATTENDING PHYSICIAN: Ricardo Ruiz D.O. CONSULTANTS: 1. Toney Narayan M.D. 2. Dr. Trotter. 3. Bright Spencer D.P.M. 4. Alexy Recio M.D. CHIEF COMPLAINT: Right leg cellulitis wound. BRIEF HISTORY: This is an 87-year-old male, who lives at , presented with above-mentioned diagnosis, admitted to medical floor for further treatment. Currently, calm in bed. No complaint. REVIEW OF SYSTEMS: No chest pain. No shortness of breath. No nausea, vomiting, or diarrhea. PAST MEDICAL HISTORY: Includes dementia, CHF, hypertension, atrial fibrillation, hypothyroid, BPH, CAD, and DVT. PAST SURGICAL HISTORY: Unknown. MEDICATIONS: Include Cardura, Norvasc, Xarelto, Flomax, Lanoxin, Synthroid, Tylenol, morphine, MiraLAX, Zofran, Ambien, and Ativan. ALLERGIES: Denies. SOCIAL HISTORY: No smoking. No alcohol. No intravenous drug use. FAMILY HISTORY: Noncontributory. PHYSICAL EXAMINATION: GENERAL: Calm in bed, oriented x2, no acute distress. VITAL SIGNS: Show temperature is 97, pulse 100, respirations 20, and blood pressure 130/74. CARDIOVASCULAR: No murmur. PULMONARY: Distant and clear. ABDOMEN: Bowel sound distant. EXTREMITIES: Show no cyanosis or clubbing. There is 1+ edema. Right slightly red and slightly swollen. NEUROLOGIC: The patient moves all extremities, slightly weak. LABORATORY DATA: Labs show hemoglobin 12.2, otherwise CBC is normal. BMP shows BUN and creatinine 26 and 1.5, otherwise normal. ASSESSMENT: 1. Right lower extremity cellulitis. 2. Dementia. 3. Anemia. 4. Renal insufficiency. 5. Congestive heart failure. 6. Hypertension. 7. Atrial fibrillation. 8. Hypothyroid. 9. Benign prostatic hypertrophy. 10. Deep venous thrombosis. PLAN: 1. Continue premeds. 2. Wound care. 3. OT, PT, and dietary followup. 4. Blood pressure and blood sugar control. 5. Pain control. 6. Antibiotics per Infectious Diseases. 7. Dr. Narayan, Dr. Trotter, Dr. Recio, Dr. Spencer, Dr. Miller, and Eric to consult. 8. We will continue to follow this patient medically. Ricardo Ruiz D.O. DR: CINTHYA JOB#: [id number] CC:
--- NOTE | 2017-10-11 12:56 | Consultation ---
DATE OF CONSULTATION: 10/10/2017 HEMATOLOGY/ONCOLOGY CONSULTATION CONSULTING PHYSICIAN: Alon Mixon M.D. REFERRING PHYSICIAN: Ricardo Ruiz D.O. REASON FOR CONSULTATION: Evaluation of anemia. IDENTIFYING DATA: Dear Dr. Ricardo Ruiz: I thank you for this kind referral. This is a patient with right lower extremity deep vein thrombosis. He presents at this time to [facility]. He presented to the ER last night. He is a residential resident with right lower extremity tejeda and knee pain as well as swelling for the last week as noted in the record. Pain noted at the site with some redness. Hematology Service consulted given history of venous thrombosis in the past. He has a history of venous duplex performed in 2016 with a recanalized chronic thrombosis in the superficial femoral vein. At this time, we will order for venous duplex, which was ordered by Dr. Narayan. Results are pending at this time. The patient does not have any evidence of DVT. We will consider to stop Xarelto. PAST MEDICAL HISTORY: Hypertension, CAD, status post VT, atrial fibrillation, CHF, CVA, TIA . MEDICATIONS: Tylenol, albuterol, amiodarone, Norvasc, Lipitor, calcium carbonate, digoxin, Pepcid, hydrochlorothiazide, Mountain, metoprolol, morphine, K-Dur, Xarelto, and Flomax. ALLERGIES: No known drug allergies. SOCIAL HISTORY: No alcohol, tobacco, or illicit drug use. skilled nursing resident. FAMILY HISTORY: Noncontributory. No history of coronary artery disease in the first-degree relatives. REVIEW OF SYSTEMS: A 12-point review of systems is completed, otherwise negative. PHYSICAL EXAMINATION: VITAL SIGNS: Reviewed. GENERAL: In no distress. PULMONARY: Decreased breath sounds. CARDIOVASCULAR: Regular rate. No S3 or S4. ABDOMEN: Soft, nontender, and nondistended. EXTREMITIES: edema. LABORATORY AND DIAGNOSTIC DATA: WBC 8.3, hemoglobin 12.2, hematocrit 37, platelet count 156,000. INR 1.4. Creatinine 1.5. ASSESSMENT AND RECOMMENDATIONS: 1. 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 The patient has been on Xarelto. Most recent imaging completed in June 2016. Continue Xarelto for deep venous thrombosis. If deep venous thrombosis resolves, consider to stop Xarelto. 2. Anemia due to underlying chronic disease. It is chronic in nature. Continue to closely monitor at this time; however, workup at this particular moment. 3. Cellulitis of the right lower extremity. Continue antibiotics as per Infectious Disease team. 4. Edema. 5. Abnormal gait. 6. Coronary artery disease. 7. Psychiatric disorder. I appreciate the consultation. Alon Mixon M.D. DR: NAA JOB#: [id number] CC:
--- NOTE | 2017-10-11 14:17 | Diagnostic Imaging Report ---
Indication: Dyspnea Comparison: 05/31/2016 A single view chest radiograph was obtained. Findings: Development of of the hazy right opacity hemithorax noted. Pulmonary vascularity appears slightly prominent but stable. Heart is enlarged. IMPRESSION: Suspected right pleural effusion. Query CHF. Please correlate clinically
[2017-10-11 16:00] VITALS: BP 117/72
[2017-10-11 20:56] VITALS: BP 111/65
[2017-10-12] VITALS: BP 127/81
--- NOTE | 2017-10-12 03:30 | Consultation ---
DATE OF CONSULTATION: 10/11/2017 NEPHROLOGY CONSULTATION CONSULTING PHYSICIAN: Sully Reyes M.D. REFERRING PHYSICIAN: Ricardo Ruiz D.O. REASON FOR CONSULTATION: Acute versus chronic renal failure. HISTORY OF PRESENT ILLNESS: The patient is an 87-year-old unfortunate male with past medical history significant for chronic kidney disease, baseline creatinine is unknown, history of COPD, CVA, hypertension, and CHF who was sent to emergency room at [facility] for evaluation of left tejeda swelling and redness for one week. The patient was admitted with a diagnosis of cellulitis of right lower extremity. Over the course of hospital admission, the patient was found to have a creatinine of 1.5. I was called for management of renal disease and electrolyte imbalance. PAST MEDICAL HISTORY: 1. History of DVT in the past. 2. History of BPH. 3. History of hypertension. 4. History of hypothyroidism. 5. History of AFib. 6. History of dementia. 7. History of dyslipidemia. 8. History of chronic kidney disease, baseline creatinine is unknown. MEDICATIONS: 1. Acyclovir 800 mg p.o. daily. 2. Amiodarone 200 mg p.o. daily. 3. Amlodipine 10 mg p.o. daily. 4. Lipitor 10 mg p.o. daily. 5. Vitamin D and calcium one tablet p.o. daily. 6. Keflex p.o. 7. Digoxin 125 mcg daily. 8. Aricept 10 mg p.o. daily. 9. Doxycycline 100 mg daily. 10. Famotidine 20 mg p.o. daily. 11. Finasteride 5 mg p.o. daily. 12. Lasix 40 mg daily. 13. Hydralazine 50 mg p.o. t.i.d. 14. Levothyroxine 20 mcg daily. 15. Ativan 1 mg p.r.n. 16. Metolazone 5 mg p.o. daily. 17. Metoprolol 25 mg p.o. daily. 18. Flomax 0.4 mg p.o. daily. 19. Vancomycin. ALLERGIES: No known drug allergies. SOCIAL HISTORY: He is a half-way resident. There is no history of current tobacco, alcohol, or drug use. REVIEW OF SYSTEMS: GENERAL: There was no fever or chills was reported. PULMONARY: No shortness of breath, cough, or sputum. CARDIOVASCULAR: There was no chest pain or palpitation. GASTROINTESTINAL: There was a good appetite. No nausea or vomiting. GENITOURINARY: Having history of BPH. No other event. PHYSICAL EXAMINATION: VITAL SIGNS: The patient had a temperature of 98 degrees, blood pressure of 140/86, pulse rate of 96, and respiratory rate of 18. HEAD AND NECK: No JVP. No LAD. No thyromegaly. Extraocular movement intact. Pupils are reactive to light and accommodation. LUNGS: Decreased breathing sounds. CARDIAC: Regular rate and rhythm. S1 and S2. No murmur. No rub. ABDOMEN: Soft, nontender, and nondistended. EXTREMITIES: Right lower extremity from mid tejeda to the lower part is red. It has some ulceration. No active discharge was noted. LABORATORY AND DIAGNOSTIC DATA: Lab value revealed sodium of 140, potassium of 3.9, chloride 105, bicarbonate 27, BUN of 20, creatinine of 1.5, and glucose of 104. Calcium of 9.5. AST of 20, ALT of 12, and alkaline phosphatase of 78. BNP is 1577. Albumin is 3.1. Cholesterol is 154, LDL 109, and HDL of 42. There is no UA. ASSESSMENT: 1. 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 2. Malnutrition with low albumin. 3. Right lower extremity cellulitis. 4. Right lower extremity deep venous thrombosis. 5. Hypertension, well controlled at this point. 6. History of hypothyroidism. 7. Mild anemia. 8. History of atrial fibrillation. PLAN: Plan for the patient is to obtain a UA. Check the random urine protein/creatinine ratio to calculate the proteinuria. Check the urine sodium and creatinine to calculate fractional excretion of sodium. Ultrasound of the kidney to evaluate the kidney size. Check urine eosinophil. I would check the I's and O's. Monitor renal function and electrolytes closely. Again, I would like to thank Dr. Ricardo Ruiz for allowing me to participate in the care of this patient. Sully Reyes M.D. DR: JAMES JOB#: [id number] CC:
[2017-10-12 04:00] VITALS: BP 133/87
[2017-10-12] MEDS: Levothyroxine 25mcg tab ORAL SCH (05:44)
[2017-10-12 07:52] LABS: BASOPHILS % (AUTO) 1.1 % (0.0-2.0); EOSINOPHILS % (AUTO) 18.9 % (0.0-3.0); HEMATOCRIT 37.5 % (42.0-52.0); HEMOGLOBIN 12.5 G/DL (14.2-18.0); LYMPHOCYTES % (AUTO) 14.4 % (20.0-45.0); MEAN CORPUSCULAR VOLUME 92 FL (80-99); MONOCYTES % (AUTO) 8.5 % (1.0-10.0); NEUTROPHILS % (AUTO) 57.2 % (45.0-75.0); PLATELET COUNT 173 K/UL (150-450); RED BLOOD COUNT 4.08 M/UL (4.70-6.10); RED CELL DISTRIBUTION WIDTH 12.8 % (11.6-14.8); WHITE BLOOD COUNT 7.6 K/UL (4.8-10.8)
[2017-10-12 08:00] VITALS: BP 149/89
[2017-10-12 08:13] LABS: ANION GAP 8 mmol/L (5-15); BLOOD UREA NITROGEN 20 mg/dL (7-18); CALCIUM 8.7 MG/DL (8.5-10.1); CARBON DIOXIDE 25 MMOL/L (21-32); CHLORIDE 107 MMOL/L (98-107); CREATININE 1.5 MG/DL (0.55-1.30); POTASSIUM 3.8 MMOL/L (3.5-5.1); SODIUM 140 MMOL/L (136-145)
--- NOTE | 2017-10-12 08:57 | Pulmonology Progress Note ---
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 X ray R T/F and R ankle - no evidence of acute fracture or dislocation BP management with CCB and optimize as needed continue Digoxin, check level a/coagulation with Xarelto for PAF and chronic DVT, no evidence of bleeding HR stable lipid panel and TSH WNL pain management bowel regimen O2 HHN prn monitor renal parameters, lytes, avoid nephrotoxic, patient with a known hx of CRI , creat remains at vbaseline PT eval and Rx case discussed and evaluated by supervising physician Subjective Allergies: Coded Allergies: No Known Allergies (Verified , 01/31/08) Subjective afebrile, no leukocytosis pain RLE Objective Last 24 Hour Vital Signs Date Time Temp Pulse Resp B/P (MAP) Pulse Ox O2 Delivery O2 Flow Rate FiO2 10/12/17 08:00 97.1 99 18 149/89 94 10/12/17 04:00 97.5 99 21 133/87 97 Room Air 10/12/17 00:00 97.7 97 20 127/81 94 Room Air 10/11/17 20:56 100.0 94 20 111/65 97 Room Air 10/11/17 16:00 Room Air 10/11/17 16:00 98.0 93 20 117/72 95 10/11/17 12:15 97.7 108 20 129/86 97 Room Air 10/11/17 10:37 94 Intake and Output 10/11/17 10/12/17 19:00 07:00 Intake Total 600 ml Output Total 400 ml Balance 200 ml Intake Oral 600 ml Output Urine Total 400 ml # Voids 3 1 Microbiology Date/Time Source Procedure Growth Status 10/10/17 00:20 Blood Blood Culture - Preliminary NO GROWTH AFTER 24 HOURS Resulted 10/10/17 00:15 Blood Blood Culture - Preliminary NO GROWTH AFTER 24 HOURS Resulted Laboratory Tests 10/11/17 19:00: Urine Random Sodium 108, Urine Creatinine 181.4H 10/12/17 04:22: Urine Eosinophils None seen, Urine Random Total Protein 23H 10/12/17 06:05: White Blood Count 7.6, Red Blood Count 4.08L, Hemoglobin 12.5L, Hematocrit 37.5L , Mean Corpuscular Volume 92, Mean Corpuscular Hemoglobin 30.6, Mean Corpuscular Hemoglobin Concent 33.3, Red Cell Distribution Width 12.8, Platelet Count 173, Mean Platelet Volume 8.9, Neutrophils (%) (Auto) 57.2, Lymphocytes (% ) (Auto) 14.4L, Monocytes (%) (Auto) 8.5, Eosinophils (%) (Auto) 18.9H, Basophils (%) (Auto) 1.1, Sodium Level 140, Potassium Level 3.8, Chloride Level 107, Carbon Dioxide Level 25, Anion Gap 8, Blood Urea Nitrogen 20H, Creatinine 1.5H, Estimat Glomerular Filtration Rate , Glucose Level 84, Calcium Level 8.7 Current Medications Medications (Trade) Dose Ordered Sig/Brissa Route PRN Reason Start Time Stop Time Status Last Admin Dose Admin Acetaminophen (Tylenol) 650 mg Q4H PRN ORAL fever 10/10/17 00:30 11/09/17 00:29 Al Hydroxide/Mg Hydroxide (Mylanta II) 30 ml Q6H PRN ORAL dyspepsia 10/10/17 00:30 11/09/17 00:29 Amiodarone HCl (Cordarone) 200 mg DAILY ORAL 10/10/17 09:00 11/09/17 08:59 10/11/17 08:44 Amlodipine Besylate (Norvasc) 10 mg DAILY ORAL 10/10/17 09:00 11/09/17 08:59 10/11/17 08:46 Dextrose (Dextrose 50%) STAT PRN IV Hypoglycemia 10/10/17 00:30 11/09/17 00:29 Digoxin (Lanoxin) 0.125 mg DAILY ORAL 10/10/17 17:30 11/09/17 17:29 10/11/17 10:37 Levothyroxine Sodium (Synthroid) 25 mcg ACBREAKFAST ORAL 10/10/17 06:30 11/09/17 06:29 10/12/17 05:44 Lorazepam (Ativan 2mg/ml 1ml) 0.5 mg Q4H PRN IV For Anxiety 10/10/17 00:30 10/17/17 00:29 Morphine Sulfate (Morphine Sulfate) 1 mg Q4H PRN IVP For Pain 10/10/17 00:30 10/17/17 00:29 Ondansetron HCl (Zofran) 4 mg Q6H PRN IVP Nausea & Vomiting 10/10/17 00:30 11/09/17 00:29 Polyethylene Glycol (Miralax) 17 gm HSPRN PRN ORAL Constipation 10/10/17 00:30 11/09/17 00:29 Rivaroxaban (Xarelto) 20 mg DAILY ORAL 10/10/17 09:00 11/09/17 08:59 10/11/17 08:43 Tamsulosin HCl (Flomax) 0.4 mg DAILY ORAL 10/10/17 09:00 11/09/17 08:59 10/11/17 08:43 Zolpidem Tartrate (Ambien) 5 mg HSPRN PRN ORAL Insomnia 10/10/17 00:30 10/17/17 00:29 Daron ([facility])Symone NP Oct 12, 2017 08:57
--- NOTE | 2017-10-12 08:59 | General Progress Note ---
Assessment/Plan Problem List: (1) CHF (congestive heart failure) ICD Codes: I50.9 - Heart failure, unspecified SNOMED: 92537579 (2) Sepsis ICD Codes: A41.9 - Sepsis, unspecified organism SNOMED: 19119041 (3) Hypothyroid ICD Codes: E03.9 - Hypothyroidism, unspecified SNOMED: 10113345 (4) Dyspnea ICD Codes: R06.00 - Dyspnea, unspecified SNOMED: 638448024, 986076401 (5) A-fib ICD Codes: I48.91 - Unspecified atrial fibrillation SNOMED: 13845235 (6) DVT (deep venous thrombosis) ICD Codes: I82.409 - Acute embolism and thrombosis of unspecified deep veins of unspecified lower extremity SNOMED: 134067124 (7) HTN (hypertension) ICD Codes: I10 - Essential (primary) hypertension SNOMED: 28559924 (8) BPH (benign prostatic hyperplasia) ICD Codes: N40.0 - Enlarged prostate without lower urinary tract symptoms SNOMED: 084421310, 757620219 (9) Cellulitis of leg ICD Codes: L03.119 - Cellulitis of unspecified part of limb SNOMED: 458174498 Status: unchanged Assessment/Plan ot pt diet wound care cbc bmp am dc plan Subjective Constitutional: Reports: weakness Allergies: Coded Allergies: No Known Allergies (Verified , 01/31/08) All Systems: reviewed and negative except above Subjective sl sob Objective Last 24 Hour Vital Signs Date Time Temp Pulse Resp B/P (MAP) Pulse Ox O2 Delivery O2 Flow Rate FiO2 10/12/17 08:00 97.1 99 18 149/89 94 10/12/17 04:00 97.5 99 21 133/87 97 Room Air 10/12/17 00:00 97.7 97 20 127/81 94 Room Air 10/11/17 20:56 100.0 94 20 111/65 97 Room Air 10/11/17 16:00 Room Air 10/11/17 16:00 98.0 93 20 117/72 95 10/11/17 12:15 97.7 108 20 129/86 97 Room Air 10/11/17 10:37 94 Intake and Output 10/11/17 10/12/17 19:00 07:00 Intake Total 600 ml Output Total 400 ml Balance 200 ml Intake Oral 600 ml Output Urine Total 400 ml # Voids 3 1 Laboratory Tests 10/11/17 19:00: Urine Random Sodium 108, Urine Creatinine 181.4H 10/12/17 04:22: Urine Eosinophils None seen, Urine Random Total Protein 23H 10/12/17 06:05: White Blood Count 7.6, Red Blood Count 4.08L, Hemoglobin 12.5L, Hematocrit 37.5L , Mean Corpuscular Volume 92, Mean Corpuscular Hemoglobin 30.6, Mean Corpuscular Hemoglobin Concent 33.3, Red Cell Distribution Width 12.8, Platelet Count 173, Mean Platelet Volume 8.9, Neutrophils (%) (Auto) 57.2, Lymphocytes (% ) (Auto) 14.4L, Monocytes (%) (Auto) 8.5, Eosinophils (%) (Auto) 18.9H, Basophils (%) (Auto) 1.1, Sodium Level 140, Potassium Level 3.8, Chloride Level 107, Carbon Dioxide Level 25, Anion Gap 8, Blood Urea Nitrogen 20H, Creatinine 1.5H, Estimat Glomerular Filtration Rate , Glucose Level 84, Calcium Level 8.7 Height (Feet): 5 Height (Inches): 10.00 Weight (Pounds): 190 General Appearance: lethargic EENT: normal ENT inspection Neck: normal alignment Cardiovascular: normal peripheral pulses, normal rate, regular rhythm Respiratory/Chest: chest wall non-tender, lungs clear, normal breath sounds Abdomen: normal bowel sounds, non tender, soft Extremities: normal inspection Edema: no edema noted Arm (L), no edema noted Arm (R), no edema noted Leg (L), no edema noted Leg (R), no edema noted Pedal (L), no edema noted Pedal (R), no edema noted Generalized Neurologic: motor weakness Skin: normal pigmentation, warm/dry Objective r ankle redness up to mid tejeda LETY MUELLER Oct 12, 2017 08:59
[2017-10-12] MEDS: Amiodarone 200mg tab ORAL SCH (09:43)
[2017-10-12] MEDS: Tamsulosin 0.4mg cap ORAL SCH (09:43)
[2017-10-12] MEDS: Xarelto 10mg tab ORAL SCH (09:44)
[2017-10-12] MEDS: Digoxin 0.125mg tab ORAL SCH (09:47)
[2017-10-12 12:00] VITALS: BP 127/86
--- NOTE | 2017-10-12 15:40 | Pulmonology Progress Note ---
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 follows X ray R T/F and R ankle - no evidence of acute fracture or dislocation BP management with CCB and optimize as needed continue Digoxin, check level a/coagulation with Xarelto for PAF and chronic DVT, no evidence of bleeding HR stable lipid panel and TSH WNL pain management bowel regimen O2 HHN prn monitor renal parameters, lytes, avoid nephrotoxic, patient with a known hx of CRI , creat remains at vbaseline PT eval and Rx case discussed and evaluated by supervising physician Subjective Allergies: Coded Allergies: No Known Allergies (Verified , 01/31/08) Subjective afebrile, no leukocytosis pain RLE Objective Last 24 Hour Vital Signs Date Time Temp Pulse Resp B/P (MAP) Pulse Ox O2 Delivery O2 Flow Rate FiO2 10/12/17 12:00 98.0 102 18 127/86 96 10/12/17 09:47 99 10/12/17 09:43 99 149/89 10/12/17 08:00 97.1 99 18 149/89 94 10/12/17 04:00 97.5 99 21 133/87 97 Room Air 10/12/17 00:00 97.7 97 20 127/81 94 Room Air 10/11/17 20:56 100.0 94 20 111/65 97 Room Air 10/11/17 16:00 Room Air 10/11/17 16:00 98.0 93 20 117/72 95 Intake and Output 10/11/17 10/12/17 19:00 07:00 Intake Total 600 ml Output Total 400 ml Balance 200 ml Intake Oral 600 ml Output Urine Total 400 ml # Voids 3 1 Objective General Appearance: other - elderly bedridden male in NAD HEENT: normocephalic, atraumatic, anicteric, mucous membranes moist Respiratory/Chest: lungs clear, no accessory muscle use Cardiovascular: normal rate, no JVD Abdomen: normal bowel sounds, soft, non tender, non distended Extremities: other - RLE with erythema, TTP Neurologic/Psychiatric: abnormal gait, alert, responsive Musculoskeletal: atrophy - BLE Microbiology Date/Time Source Procedure Growth Status 10/10/17 00:20 Blood Blood Culture - Preliminary NO GROWTH AFTER 48 HOURS Resulted 10/10/17 00:15 Blood Blood Culture - Preliminary NO GROWTH AFTER 48 HOURS Resulted 10/10/17 03:08 Nasal Nares MRSA Culture - Final NO METHICILLIN RESISTANT STAPH AUREUS... Complete 10/10/17 03:08 Rectum VRE Culture - Final NO VANCOMYCIN RESISTANT ENTEROCOCCUS ... Complete Laboratory Tests 10/11/17 19:00: Urine Random Sodium 108, Urine Creatinine 181.4H 10/12/17 04:22: Urine Eosinophils None seen, Urine Random Creatinine [Pending], Urine Random Microalbumin [Pending], Urine Random Total Protein 23H, Urine Microalbumin/ Creatinine Ratio [Pending] 10/12/17 06:05: White Blood Count 7.6, Red Blood Count 4.08L, Hemoglobin 12.5L, Hematocrit 37.5L , Mean Corpuscular Volume 92, Mean Corpuscular Hemoglobin 30.6, Mean Corpuscular Hemoglobin Concent 33.3, Red Cell Distribution Width 12.8, Platelet Count 173, Mean Platelet Volume 8.9, Neutrophils (%) (Auto) 57.2, Lymphocytes (% ) (Auto) 14.4L, Monocytes (%) (Auto) 8.5, Eosinophils (%) (Auto) 18.9H, Basophils (%) (Auto) 1.1, Sodium Level 140, Potassium Level 3.8, Chloride Level 107, Carbon Dioxide Level 25, Anion Gap 8, Blood Urea Nitrogen 20H, Creatinine 1.5H, Estimat Glomerular Filtration Rate , Glucose Level 84, Calcium Level 8.7 Current Medications Medications (Trade) Dose Ordered Sig/Brissa Route PRN Reason Start Time Stop Time Status Last Admin Dose Admin Acetaminophen (Tylenol) 650 mg Q4H PRN ORAL fever 10/10/17 00:30 11/09/17 00:29 Al Hydroxide/Mg Hydroxide (Mylanta II) 30 ml Q6H PRN ORAL dyspepsia 10/10/17 00:30 11/09/17 00:29 Amiodarone HCl (Cordarone) 200 mg DAILY ORAL 10/10/17 09:00 11/09/17 08:59 10/12/17 09:43 Amlodipine Besylate (Norvasc) 10 mg DAILY ORAL 10/10/17 09:00 11/09/17 08:59 10/12/17 09:43 Dextrose (Dextrose 50%) STAT PRN IV Hypoglycemia 10/10/17 00:30 11/09/17 00:29 Digoxin (Lanoxin) 0.125 mg DAILY ORAL 10/10/17 17:30 11/09/17 17:29 10/12/17 09:47 Donepezil HCl (Aricept) 10 mg QHS ORAL 10/12/17 21:00 11/11/17 20:59 Levothyroxine Sodium (Synthroid) 25 mcg ACBREAKFAST ORAL 10/10/17 06:30 11/09/17 06:29 10/12/17 05:44 Lorazepam (Ativan 2mg/ml 1ml) 0.5 mg Q4H PRN IV For Anxiety 10/10/17 00:30 10/17/17 00:29 Morphine Sulfate (Morphine Sulfate) 1 mg Q4H PRN IVP For Pain 10/10/17 00:30 10/17/17 00:29 Ondansetron HCl (Zofran) 4 mg Q6H PRN IVP Nausea & Vomiting 10/10/17 00:30 11/09/17 00:29 Polyethylene Glycol (Miralax) 17 gm HSPRN PRN ORAL Constipation 10/10/17 00:30 11/09/17 00:29 Rivaroxaban (Xarelto) 20 mg DAILY ORAL 10/10/17 09:00 11/09/17 08:59 10/12/17 09:44 Tamsulosin HCl (Flomax) 0.4 mg DAILY ORAL 10/10/17 09:00 11/09/17 08:59 10/12/17 09:43 Zolpidem Tartrate (Ambien) 5 mg HSPRN PRN ORAL Insomnia 10/10/17 00:30 10/17/17 00:29 [facility] Oct 12, 2017 15:39
[2017-10-12 16:00] VITALS: BP 118/80
[2017-10-12 20:00] VITALS: BP 149/92
[2017-10-12] MEDS: Donepezil 10mg tab ORAL SCH (20:46)
[2017-10-13] VITALS (9 sets, daily range): BP systolic 109–149; BP diastolic 67–94
--- NOTE | 2017-10-13 02:01 | General Progress Note ---
Assessment/Plan Assessment/Plan 1. 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 --> The patient has been on Xarelto. --> Most recent imaging completed in June 2016. --> Continue Xarelto for deep venous thrombosis. --> If deep venous thrombosis resolves, consider to stop Xarelto. 2. Anemia due to underlying chronic disease. --> It is chronic in nature. --> Continue to closely monitor at this time; --> Workup reviewed. 3. Cellulitis of the right lower extremity. --> Continue antibiotics as per Infectious Disease team. 4. Edema. 5. Abnormal gait. 6. Coronary artery disease. 7. Psychiatric disorder. Subjective Date patient seen: Oct 11, 2017 Constitutional: Denies: no symptoms, chills, diaphoresis, fever, malaise, weakness, other HEENT: Denies: no symptoms, eye pain, blurred vision, tearing, double vision, ear pain, ear discharge, nose pain, nose congestion, throat pain, throat swelling, mouth pain, mouth swelling, other Cardiovascular: Denies: no symptoms, chest pain, edema, irregular heart rate, lightheadedness, palpitations, syncope, other Respiratory: Denies: no symptoms, cough, orthopnea, shortness of breath, SOB with excertion, SOB at rest, sputum, stridor, wheezing, other Gastrointestinal/Abdominal: Denies: no symptoms, abdomen distended, abdominal pain, black stools, tarry stools, blood in stool, constipated, diarrhea, difficulty swallowing, nausea, poor appetite, poor fluid intake, rectal bleeding , vomiting, other Genitourinary: Denies: no symptoms, burning, discharge, frequency, flank pain, hematuria, incontinence, pain, urgency, other Allergies: Coded Allergies: No Known Allergies (Verified , 01/31/08) Subjective On antibiotics. No fever or chills. Objective Last 24 Hour Vital Signs Date Time Temp Pulse Resp B/P (MAP) Pulse Ox O2 Delivery O2 Flow Rate FiO2 10/13/17 00:00 97.5 98 21 137/81 98 10/12/17 20:00 97.9 103 21 149/92 97 10/12/17 16:00 98.2 115 20 118/80 94 10/12/17 12:00 98.0 102 18 127/86 96 10/12/17 09:47 99 10/12/17 09:43 99 149/89 10/12/17 08:00 97.1 99 18 149/89 94 10/12/17 04:00 97.5 99 21 133/87 97 Room Air Intake and Output 10/12/17 10/13/17 19:00 07:00 Intake Total 800 ml Balance 800 ml Intake Oral 800 ml # Voids 6 # Bowel Movements 1 Laboratory Tests 10/12/17 04:22: Urine Eosinophils None seen, Urine Random Creatinine [Pending], Urine Random Microalbumin [Pending], Urine Random Total Protein 23H, Urine Microalbumin/ Creatinine Ratio [Pending] 10/12/17 06:05: White Blood Count 7.6, Red Blood Count 4.08L, Hemoglobin 12.5L, Hematocrit 37.5L , Mean Corpuscular Volume 92, Mean Corpuscular Hemoglobin 30.6, Mean Corpuscular Hemoglobin Concent 33.3, Red Cell Distribution Width 12.8, Platelet Count 173, Mean Platelet Volume 8.9, Neutrophils (%) (Auto) 57.2, Lymphocytes (% ) (Auto) 14.4L, Monocytes (%) (Auto) 8.5, Eosinophils (%) (Auto) 18.9H, Basophils (%) (Auto) 1.1, Sodium Level 140, Potassium Level 3.8, Chloride Level 107, Carbon Dioxide Level 25, Anion Gap 8, Blood Urea Nitrogen 20H, Creatinine 1.5H, Estimat Glomerular Filtration Rate , Glucose Level 84, Calcium Level 8.7 Height (Feet): 5 Height (Inches): 10.00 Weight (Pounds): 190 General Appearance: no apparent distress Respiratory/Chest: lungs clear Abdomen: soft Alon Mixon Oct 13, 2017 02:01
--- NOTE | 2017-10-13 02:02 | General Progress Note ---
Assessment/Plan Status: stable Assessment/Plan 1. 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 --> The patient has been on Xarelto. --> Most recent imaging completed in June 2016. --> Continue Xarelto for deep venous thrombosis. --> If deep venous thrombosis resolves, consider to stop Xarelto. 2. Anemia due to underlying chronic disease. --> It is chronic in nature. Mild at this time. No transfusion needed. --> Continue to closely monitor at this time; --> Workup reviewed. 3. Cellulitis of the right lower extremity. --> Continue antibiotics as per Infectious Disease team. --> Monitor closely. 4. Edema. 5. Abnormal gait. 6. Coronary artery disease. 7. Psychiatric disorder. Subjective Date patient seen: Oct 12, 2017 Constitutional: Denies: no symptoms, chills, diaphoresis, fever, malaise, weakness, other HEENT: Denies: no symptoms, eye pain, blurred vision, tearing, double vision, ear pain, ear discharge, nose pain, nose congestion, throat pain, throat swelling, mouth pain, mouth swelling, other Cardiovascular: Denies: no symptoms, chest pain, edema, irregular heart rate, lightheadedness, palpitations, syncope, other Respiratory: Denies: no symptoms, cough, orthopnea, shortness of breath, SOB with excertion, SOB at rest, sputum, stridor, wheezing, other Gastrointestinal/Abdominal: Denies: no symptoms, abdomen distended, abdominal pain, black stools, tarry stools, blood in stool, constipated, diarrhea, difficulty swallowing, nausea, poor appetite, poor fluid intake, rectal bleeding , vomiting, other Genitourinary: Denies: no symptoms, burning, discharge, frequency, flank pain, hematuria, incontinence, pain, urgency, other Hematologic/Lymphatic: Reports: anemia Allergies: Coded Allergies: No Known Allergies (Verified , 01/31/08) Subjective On antibiotics. Anemia mild. No major events. Objective Last 24 Hour Vital Signs Date Time Temp Pulse Resp B/P (MAP) Pulse Ox O2 Delivery O2 Flow Rate FiO2 10/13/17 00:00 97.5 98 21 137/81 98 10/12/17 20:00 97.9 103 21 149/92 97 10/12/17 16:00 98.2 115 20 118/80 94 10/12/17 12:00 98.0 102 18 127/86 96 10/12/17 09:47 99 10/12/17 09:43 99 149/89 10/12/17 08:00 97.1 99 18 149/89 94 10/12/17 04:00 97.5 99 21 133/87 97 Room Air Intake and Output 10/12/17 10/13/17 19:00 07:00 Intake Total 800 ml Balance 800 ml Intake Oral 800 ml # Voids 6 # Bowel Movements 1 Laboratory Tests 10/12/17 04:22: Urine Eosinophils None seen, Urine Random Creatinine [Pending], Urine Random Microalbumin [Pending], Urine Random Total Protein 23H, Urine Microalbumin/ Creatinine Ratio [Pending] 10/12/17 06:05: White Blood Count 7.6, Red Blood Count 4.08L, Hemoglobin 12.5L, Hematocrit 37.5L , Mean Corpuscular Volume 92, Mean Corpuscular Hemoglobin 30.6, Mean Corpuscular Hemoglobin Concent 33.3, Red Cell Distribution Width 12.8, Platelet Count 173, Mean Platelet Volume 8.9, Neutrophils (%) (Auto) 57.2, Lymphocytes (% ) (Auto) 14.4L, Monocytes (%) (Auto) 8.5, Eosinophils (%) (Auto) 18.9H, Basophils (%) (Auto) 1.1, Sodium Level 140, Potassium Level 3.8, Chloride Level 107, Carbon Dioxide Level 25, Anion Gap 8, Blood Urea Nitrogen 20H, Creatinine 1.5H, Estimat Glomerular Filtration Rate , Glucose Level 84, Calcium Level 8.7 Height (Feet): 5 Height (Inches): 10.00 Weight (Pounds): 190 General Appearance: no apparent distress Cardiovascular: normal rate Respiratory/Chest: lungs clear Abdomen: soft Alon Mixon Oct 13, 2017 02:02
--- NOTE | 2017-10-13 05:32 | General Progress Note ---
Assessment/Plan Problem List: (1) CHF (congestive heart failure) ICD Codes: I50.9 - Heart failure, unspecified SNOMED: 43728202 (2) Sepsis ICD Codes: A41.9 - Sepsis, unspecified organism SNOMED: 92793180 (3) Hypothyroid ICD Codes: E03.9 - Hypothyroidism, unspecified SNOMED: 24843533 (4) Dyspnea ICD Codes: R06.00 - Dyspnea, unspecified SNOMED: 414525657, 784913773 (5) A-fib ICD Codes: I48.91 - Unspecified atrial fibrillation SNOMED: 14349122 (6) DVT (deep venous thrombosis) ICD Codes: I82.409 - Acute embolism and thrombosis of unspecified deep veins of unspecified lower extremity SNOMED: 709715559 (7) HTN (hypertension) ICD Codes: I10 - Essential (primary) hypertension SNOMED: 72278823 (8) BPH (benign prostatic hyperplasia) ICD Codes: N40.0 - Enlarged prostate without lower urinary tract symptoms SNOMED: 950415478, 059131092 (9) Cellulitis of leg ICD Codes: L03.119 - Cellulitis of unspecified part of limb SNOMED: 287582717 Status: unchanged Assessment/Plan ot pt diet wound care cbc bmp am dc plan Subjective Constitutional: Reports: weakness Allergies: Coded Allergies: No Known Allergies (Verified , 01/31/08) All Systems: reviewed and negative except above Subjective sl sob Objective Last 24 Hour Vital Signs Date Time Temp Pulse Resp B/P (MAP) Pulse Ox O2 Delivery O2 Flow Rate FiO2 10/13/17 00:00 97.5 98 21 137/81 98 10/12/17 20:00 97.9 103 21 149/92 97 10/12/17 16:00 98.2 115 20 118/80 94 10/12/17 12:00 98.0 102 18 127/86 96 10/12/17 09:47 99 10/12/17 09:43 99 149/89 10/12/17 08:00 97.1 99 18 149/89 94 Intake and Output 10/12/17 10/13/17 19:00 07:00 Intake Total 800 ml Balance 800 ml Intake Oral 800 ml # Voids 6 # Bowel Movements 1 Laboratory Tests 10/12/17 06:05: White Blood Count 7.6, Red Blood Count 4.08L, Hemoglobin 12.5L, Hematocrit 37.5L , Mean Corpuscular Volume 92, Mean Corpuscular Hemoglobin 30.6, Mean Corpuscular Hemoglobin Concent 33.3, Red Cell Distribution Width 12.8, Platelet Count 173, Mean Platelet Volume 8.9, Neutrophils (%) (Auto) 57.2, Lymphocytes (% ) (Auto) 14.4L, Monocytes (%) (Auto) 8.5, Eosinophils (%) (Auto) 18.9H, Basophils (%) (Auto) 1.1, Sodium Level 140, Potassium Level 3.8, Chloride Level 107, Carbon Dioxide Level 25, Anion Gap 8, Blood Urea Nitrogen 20H, Creatinine 1.5H, Estimat Glomerular Filtration Rate , Glucose Level 84, Calcium Level 8.7 Height (Feet): 5 Height (Inches): 10.00 Weight (Pounds): 190 General Appearance: lethargic EENT: normal ENT inspection Neck: normal alignment Cardiovascular: normal peripheral pulses, normal rate, regular rhythm Respiratory/Chest: decreased breath sounds Abdomen: normal bowel sounds, non tender, soft Extremities: normal inspection Edema: no edema noted Arm (L), no edema noted Arm (R), no edema noted Leg (L), no edema noted Leg (R), no edema noted Pedal (L), no edema noted Pedal (R), no edema noted Generalized Neurologic: responsive, motor weakness Skin: normal pigmentation, warm/dry Objective r ankle redness up to mid tejeda LETY MUELLER Oct 13, 2017 05:32
[2017-10-13] MEDS: Levothyroxine 25mcg tab ORAL SCH (05:48)
[2017-10-13 08:10] LABS: EOSINOPHILS % (AUTO) 17.7 % (0.0-3.0); HEMATOCRIT 39.8 % (42.0-52.0); HEMOGLOBIN 13.1 G/DL (14.2-18.0); MEAN CORPUSCULAR VOLUME 92 FL (80-99); MONOCYTES % (AUTO) 6.8 % (1.0-10.0); NEUTROPHILS % (AUTO) 56.4 % (45.0-75.0); PLATELET COUNT 183 K/UL (150-450); RED BLOOD COUNT 4.32 M/UL (4.70-6.10); RED CELL DISTRIBUTION WIDTH 12.8 % (11.6-14.8); WHITE BLOOD COUNT 7.3 K/UL (4.8-10.8)
[2017-10-13] MEDS: Digoxin 0.125mg tab ORAL SCH (09:14)
[2017-10-13] MEDS: Amiodarone 200mg tab ORAL SCH (09:14)
[2017-10-13] MEDS: Tamsulosin 0.4mg cap ORAL SCH (09:14)
[2017-10-13] MEDS: Xarelto 10mg tab ORAL SCH (09:15)
[2017-10-13 09:20] LABS: ANION GAP 5 mmol/L (5-15); BLOOD UREA NITROGEN 18 mg/dL (7-18); CALCIUM 9.1 MG/DL (8.5-10.1); CARBON DIOXIDE 28 MMOL/L (21-32); CHLORIDE 106 MMOL/L (98-107); CREATININE 1.6 MG/DL (0.55-1.30); POTASSIUM 4.2 MMOL/L (3.5-5.1); SODIUM 139 MMOL/L (136-145)
--- NOTE | 2017-10-13 13:17 | Pulmonology Progress Note ---
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 R T/F and R ankle - no evidence of acute fracture or dislocation BP management with CCB and optimize as needed continue Digoxin, a/coagulation with Xarelto for PAF and chronic DVT, no evidence of bleeding HR stable lipid panel and TSH WNL pain management bowel regimen O2 HHN prn monitor renal parameters, lytes, avoid nephrotoxic, patient with a known hx of CRI , creat remains at vbaseline PT eval and Rx case discussed and evaluated by supervising physician Subjective Allergies: Coded Allergies: No Known Allergies (Verified , 01/31/08) Subjective afebrile, no leukocytosis pain RLE Objective Last 24 Hour Vital Signs Date Time Temp Pulse Resp B/P (MAP) Pulse Ox O2 Delivery O2 Flow Rate FiO2 10/13/17 12:00 97.8 113 20 149/94 97 10/13/17 09:14 110 10/13/17 09:00 110 109/68 10/13/17 08:00 98.3 110 18 109/68 96 10/13/17 04:00 97.8 82 20 128/82 93 10/13/17 00:00 97.5 98 21 137/81 98 10/12/17 20:00 97.9 103 21 149/92 97 10/12/17 16:00 98.2 115 20 118/80 94 Intake and Output 10/12/17 10/13/17 19:00 07:00 Intake Total 800 ml Balance 800 ml Intake Oral 800 ml # Voids 6 2 # Bowel Movements 1 Objective General Appearance: elderly male in NAD HEENT: normocephalic, atraumatic, anicteric, mucous membranes moist Respiratory/Chest: lungs clear, no accessory muscle use Cardiovascular: normal rate, no JVD Abdomen: normal bowel sounds, soft, non tender, non distended Extremities: RLE with erythema, TTP Neurologic/Psychiatric: abnormal gait, alert, responsive Musculoskeletal: atrophy - BLE Laboratory Tests 10/13/17 07:02: White Blood Count 7.3, Red Blood Count 4.32L, Hemoglobin 13.1L, Hematocrit 39.8L , Mean Corpuscular Volume 92, Mean Corpuscular Hemoglobin 30.4, Mean Corpuscular Hemoglobin Concent 33.0, Red Cell Distribution Width 12.8, Platelet Count 183, Mean Platelet Volume 9.5, Neutrophils (%) (Auto) 56.4, Lymphocytes (% ) (Auto) 18.0L, Monocytes (%) (Auto) 6.8, Eosinophils (%) (Auto) 17.7H, Basophils (%) (Auto) 1.0, Sodium Level 139, Potassium Level 4.2, Chloride Level 106, Carbon Dioxide Level 28, Anion Gap 5, Blood Urea Nitrogen 18, Creatinine 1.6H, Estimat Glomerular Filtration Rate , Glucose Level 90, Calcium Level 9.1 Current Medications Medications (Trade) Dose Ordered Sig/Brissa Route PRN Reason Start Time Stop Time Status Last Admin Dose Admin Acetaminophen (Tylenol) 650 mg Q4H PRN ORAL fever 10/10/17 00:30 11/09/17 00:29 Al Hydroxide/Mg Hydroxide (Mylanta II) 30 ml Q6H PRN ORAL dyspepsia 10/10/17 00:30 11/09/17 00:29 Amiodarone HCl (Cordarone) 200 mg DAILY ORAL 10/10/17 09:00 11/09/17 08:59 10/13/17 09:14 Amlodipine Besylate (Norvasc) 10 mg DAILY ORAL 10/10/17 09:00 11/09/17 08:59 10/12/17 09:43 Dextrose (Dextrose 50%) STAT PRN IV Hypoglycemia 10/10/17 00:30 11/09/17 00:29 Digoxin (Lanoxin) 0.125 mg DAILY ORAL 10/10/17 17:30 11/09/17 17:29 10/13/17 09:14 Donepezil HCl (Aricept) 10 mg QHS ORAL 10/12/17 21:00 11/11/17 20:59 10/12/17 20:46 Levothyroxine Sodium (Synthroid) 25 mcg ACBREAKFAST ORAL 10/10/17 06:30 11/09/17 06:29 10/13/17 05:48 Lorazepam (Ativan 2mg/ml 1ml) 0.5 mg Q4H PRN IV For Anxiety 10/10/17 00:30 10/17/17 00:29 Morphine Sulfate (Morphine Sulfate) 1 mg Q4H PRN IVP For Pain 10/10/17 00:30 10/17/17 00:29 Ondansetron HCl (Zofran) 4 mg Q6H PRN IVP Nausea & Vomiting 10/10/17 00:30 11/09/17 00:29 Polyethylene Glycol (Miralax) 17 gm HSPRN PRN ORAL Constipation 10/10/17 00:30 11/09/17 00:29 Rivaroxaban (Xarelto) 20 mg DAILY ORAL 10/10/17 09:00 11/09/17 08:59 10/13/17 09:15 Tamsulosin HCl (Flomax) 0.4 mg DAILY ORAL 10/10/17 09:00 11/09/17 08:59 10/13/17 09:14 Zolpidem Tartrate (Ambien) 5 mg HSPRN PRN ORAL Insomnia 10/10/17 00:30 10/17/17 00:29 [facility] Oct 13, 2017 13:17
[2017-10-13] MEDS ORDERED: Cefepime HCl 1 GM in NS 55 ML IVPB SCH (14:00)
[2017-10-13] MEDS: Donepezil 10mg tab ORAL SCH (21:22)
--- NOTE | 2017-10-13 23:05 | Consultation ---
DATE OF CONSULTATION: 10/12/2017 INITIAL PSYCHIATRIC EVALUATION REQUESTING PHYSICIAN: Ricardo Ruiz D.O. HISTORY OF PRESENT ILLNESS: This is an 87-year-old male patient with cellulitis. The reason why this patient was admitted to the hospital is because he has a history of cellulitis, but in addition to the patient's cellulitis, he came into the hospital with right leg cellulitis wound, but he also has been exhibiting altered mental status. His cognition has declined below baseline secondary to stress of his medical illness and he is very confused and disorganized, worsening due to the progression of his medical illness. That is why this patient does require daily psychiatric consultation as attending physician has requested daily psychiatric consultation to manage this patient's behavior and to prevent any further decline in his cognition and hopefully improve his cognition closer to what his baseline was. PAST MEDICAL HISTORY: As far as his medical history, he has a history of congestive heart failure, hypertension, atrial fibrillation, hypothyroidism, benign prostatic hyperplasia, coronary artery disease, status post DVT. He has congestive heart failure, hypertension, atrial fibrillation, hypothyroidism, psychosocial stressors, and financial stressors. ALLERGIES: No known drug allergies. SUBSTANCE ABUSE HISTORY: The patient denies any drug and alcohol use. SOCIAL HISTORY: The patient is financially supported by [employer] and Medicare. The patient lives in a skilled nursing. PSYCHIATRIC HISTORY5: This patient is with a history of paranoid schizophrenia, rule out dementia with psychosis. MENTAL STATUS EXAMINATION: This is an 87-year-old male with psychomotor agitation. Appearance is disheveled. Irritable, and agitated. Affect guarded and restricted. Intellect is poor. Mood depressed and anxious. Motor activity, psychomotor agitation. Attention span is poor. Orientation x2. Speech is pressured. Thought process disorganized and illogical. Thought content, no auditory hallucinations with paranoid delusions. Insight and judgment are poor. Appearance is poor. progress is poor. Memory 3/3 word recall for 5 minutes delay. DIAGNOSES: Depression with psychotic features, rule out pseudodementia, rule out dementia with psychotic features. PLAN: Provide him with supportive therapy. Encourage him to interact appropriately with staff and other patients and also he is very confused and disorganized. So, I am going to treat him with Aricept 10 mg nightly to prevent any further decline in his cognition. He is very disorganized. He is slightly delusional. On interview, he kept saying "I have not get any of my medications yet, what is this place." Today as witnessed in the hospital, he forgets and he gets his medications and medications to help. Staff treated him due to his level of agitation and mood lability. Seen and assessed at bedside. Chart reviewed and discussed with staff. The patient seen and assessed at bedside. I would like to thank, Dr. Ricardo Ruiz for this interesting consultation. A 15 to 20 minutes of supportive therapy provided. Chart reviewed and discussed with staff. Kip Miller M.D. DR: Ryan JOB#: [id number] CC:
--- NOTE | 2017-10-13 23:53 | General Progress Note ---
Assessment/Plan Status: stable Assessment/Plan #. 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 --> The patient has been on Xarelto. --> Most recent imaging completed in June 2016. --> Continue Xarelto for deep venous thrombosis. --> If deep venous thrombosis resolves, consider to stop Xarelto. #. Anemia due to underlying chronic disease. --> It is chronic in nature. Mild at this time. No transfusion needed. --> Continue to closely monitor at this time; --> Workup reviewed. Hemoglobin goal>7 #. Cellulitis of the right lower extremity. --> Continue antibiotics as per Infectious Disease team. --> Monitor closely. Improved. #. Edema. #. Abnormal gait. #. Coronary artery disease. #. Psychiatric disorder. Subjective Date patient seen: Oct 13, 2017 Constitutional: Denies: no symptoms, chills, diaphoresis, fever, malaise, weakness, other HEENT: Denies: no symptoms, eye pain, blurred vision, tearing, double vision, ear pain, ear discharge, nose pain, nose congestion, throat pain, throat swelling, mouth pain, mouth swelling, other Cardiovascular: Denies: no symptoms, chest pain, edema, irregular heart rate, lightheadedness, palpitations, syncope, other Respiratory: Denies: no symptoms, cough, orthopnea, shortness of breath, SOB with excertion, SOB at rest, sputum, stridor, wheezing, other Gastrointestinal/Abdominal: Denies: no symptoms, abdomen distended, abdominal pain, black stools, tarry stools, blood in stool, constipated, diarrhea, difficulty swallowing, nausea, poor appetite, poor fluid intake, rectal bleeding , vomiting, other Allergies: Coded Allergies: No Known Allergies (Verified , 01/31/08) Subjective No new events overnight. No fever or chills. Objective Last 24 Hour Vital Signs Date Time Temp Pulse Resp B/P (MAP) Pulse Ox O2 Delivery O2 Flow Rate FiO2 10/13/17 20:00 97.7 87 21 117/67 97 10/13/17 16:00 98.1 69 17 134/76 98 Room Air 10/13/17 12:00 97.8 113 20 149/94 97 10/13/17 09:14 110 10/13/17 09:00 110 109/68 10/13/17 08:00 98.3 110 18 109/68 96 10/13/17 04:45 98.1 69 17 134/76 98 Room Air 10/13/17 04:30 98.1 74 18 134/76 96 Room Air 10/13/17 04:15 98.1 69 17 132/67 Room Air 10/13/17 04:15 98.1 69 17 134/76 98 Room Air 10/13/17 04:00 98.1 72 17 134/76 98 Room Air 10/13/17 04:00 97.8 82 20 128/82 93 10/13/17 00:00 97.5 98 21 137/81 98 Intake and Output 10/12/17 10/13/17 19:00 07:00 Intake Total 800 ml Balance 800 ml Intake Oral 800 ml # Voids 6 2 # Bowel Movements 1 Laboratory Tests 10/13/17 07:02: White Blood Count 7.3, Red Blood Count 4.32L, Hemoglobin 13.1L, Hematocrit 39.8L , Mean Corpuscular Volume 92, Mean Corpuscular Hemoglobin 30.4, Mean Corpuscular Hemoglobin Concent 33.0, Red Cell Distribution Width 12.8, Platelet Count 183, Mean Platelet Volume 9.5, Neutrophils (%) (Auto) 56.4, Lymphocytes (% ) (Auto) 18.0L, Monocytes (%) (Auto) 6.8, Eosinophils (%) (Auto) 17.7H, Basophils (%) (Auto) 1.0, Sodium Level 139, Potassium Level 4.2, Chloride Level 106, Carbon Dioxide Level 28, Anion Gap 5, Blood Urea Nitrogen 18, Creatinine 1.6H, Estimat Glomerular Filtration Rate , Glucose Level 90, Calcium Level 9.1 Height (Feet): 5 Height (Inches): 10.00 Weight (Pounds): 190 General Appearance: no apparent distress Cardiovascular: normal rate Respiratory/Chest: decreased breath sounds Abdomen: non tender, soft Alon Mixon Oct 13, 2017 23:53
[2017-10-14] VITALS: BP 141/93
--- NOTE | 2017-10-14 00:15 | Progress Note ---
DATE: 10/13/2017 SUBJECTIVE: This is an 87-year-old male patient with cellulitis. He still has some confusion, disorganized thought process, and mood lability, worsened on stress of his medical illnesses, so his attending has requested daily psychiatric consultation. MENTAL STATUS EXAMINATION: This is an 87-year-old male with psychomotor retardation. Mood is depressed. Affect is guarded and restricted. Thought process is disorganized and illogical. Denies any current suicidal or homicidal ideations. Insight and judgment is poor. DIAGNOSIS: Paranoid schizophrenia with acute exacerbation, rule out dementia with psychosis. PLAN: Continue titrating up his medications to stabilize his mood. Chart was reviewed and discussed with staff. Fifteen to 20 minutes of supportive therapy provided. Kpi Miller M.D. DR: MOLLY JOB#: [id number] CC:
[2017-10-14] MEDS ORDERED: Vancomycin 750mg/NS 250ml IVPB SCH (01:00)
--- NOTE | 2017-10-14 01:30 | Consultation ---
DATE OF CONSULTATION: 10/13/2017 INFECTIOUS DISEASES CONSULTATION CONSULTING PHYSICIAN: Monster Scales M.D. PRIMARY ATTENDING PHYSICIAN: Ricardo Ruiz D.O. REASON FOR CONSULTATION: Right leg cellulitis. HISTORY OF PRESENT ILLNESS: The patient is an 87-year-old male who is a skilled nursing resident admitted on 10/10/2017 because of swelling, pain, and erythema in the right lower extremity below the knee. The patient denies any fall or accident, had no fever. PAST MEDICAL HISTORY: Significant for BPH, chronic kidney disease, atrial fibrillation, hypothyroidism, history of DVT in the right leg, hypertension. ALLERGIES: No known drug allergies. MEDICATIONS: Getting vancomycin, cefepime, Aricept, digoxin, amiodarone, Norvasc, Xarelto, Flomax, levothyroxine, Tylenol, morphine, MiraLAX, Ambien, Mylanta. SOCIAL HISTORY: alf resident. Single. No history of alcohol, drug abuse, or smoking. REVIEW OF SYSTEMS: Tenderness in the right leg, has no other complaints. PHYSICAL EXAMINATION: VITAL SIGNS: Temperature 97.8, pulse 113, blood pressure 149/94. GENERAL APPEARANCE: No acute distress. HEAD AND NECK: [place] conjunctivae. HEART: Tachycardic and irregular. LUNGS: Clear. ABDOMEN: Soft. Has a small umbilical hernia. Nontender. EXTREMITIES: There is erythema and edema in right lower extremity starting from the tejeda area and goes down to the right feet. The patient also has onychomycosis of first and fourth toenails in the right side. No open wounds. NEUROLOGIC: Awake, alert, responsive, has fluent speech, seems to have some hearing difficulty. LABORATORY AND DIAGNOSTIC DATA: WBC 7.3, hemoglobin 13.1, hematocrit 39.8, platelets 183. Sodium 139, potassium 4.2, chloride 106, bicarb 28, BUN 18, creatinine 1.6. Blood culture x2 so far negative. MRSA negative. VRE screen is negative. The patient has a venous duplex of the lower extremities that showed recanalized chronic thrombosis in the superficial femoral vein in the right leg. IMPRESSION: 1. Right leg cellulitis, seems to have also some stasis dermatitis. 2. Cellulitis is nonpurulent. 3. Anemia. 4. Benign prostatic hypertrophy. 5. Chronic kidney disease. 6. Hypothyroidism. 7. 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 8. Hypertension. RECOMMENDATIONS: 1. Continue with current antibiotics, cefepime and vancomycin. 2. We will follow up the cultures and narrow antibiotics. At the end of my exam, I thank Dr. Ricardo Ruiz for involving me in the care of this patient. Monster Scales M.D. DR: Carlos JOB#: [id number] CC:
[2017-10-14 04:00] VITALS: BP 141/85
[2017-10-14] MEDS: Levothyroxine 25mcg tab ORAL SCH (05:26)
[2017-10-14 06:47] LABS: HEMATOCRIT 35.8 % (42.0-52.0); HEMOGLOBIN 11.9 G/DL (14.2-18.0); MEAN CORPUSCULAR VOLUME 92 FL (80-99); PLATELET COUNT 152 K/UL (150-450); RED BLOOD COUNT 3.89 M/UL (4.70-6.10); RED CELL DISTRIBUTION WIDTH 12.6 % (11.6-14.8)
[2017-10-14 07:27] LABS: ANION GAP 6 mmol/L (5-15); BLOOD UREA NITROGEN 21 mg/dL (7-18); CALCIUM 8.7 MG/DL (8.5-10.1); CARBON DIOXIDE 27 MMOL/L (21-32); CHLORIDE 107 MMOL/L (98-107); CREATININE 1.7 MG/DL (0.55-1.30); POTASSIUM 3.8 MMOL/L (3.5-5.1); SODIUM 140 MMOL/L (136-145)
[2017-10-14 08:39] VITALS: BP 138/82
--- NOTE | 2017-10-14 08:47 | Nephrology Progress Note ---
Assessment/Plan Assessment 1. Chronic kidney disease, 2. Malnutrition with low albumin. 3. Right lower extremity cellulitis. 4. Right lower extremity deep venous thrombosis. 5. Hypertension, well controlled at this point. 6. History of hypothyroidism. 7. Mild anemia. 8. History of atrial fibrillation. Plan plan to continue current meds monitoring renal function avoid NSAID replace electrolyte as need it Subjective Constitutional: Reports: no symptoms HEENT: Reports: no symptoms Genitourinary: Reports: no symptoms Neurologic/Psychiatric: Reports: no symptoms Objective Objective Last 24 Hour Vital Signs Date Time Temp Pulse Resp B/P (MAP) Pulse Ox O2 Delivery O2 Flow Rate FiO2 10/14/17 08:39 97.6 102 20 138/82 98 10/14/17 04:00 97.5 91 21 141/85 96 10/14/17 04:00 96 Room Air 10/14/17 00:00 96 Room Air 10/14/17 00:00 97.5 98 21 141/93 96 10/13/17 20:00 97.7 87 21 117/67 97 10/13/17 20:00 97 Room Air 10/13/17 16:00 98.1 69 17 134/76 98 Room Air 10/13/17 12:00 97.8 113 20 149/94 97 10/13/17 09:14 110 10/13/17 09:00 110 109/68 Intake and Output 10/13/17 10/14/17 19:00 07:00 Intake Total 480 ml 333.334 ml Output Total 600 ml 950 ml Balance -120 ml -616.666 ml Intake Oral 480 ml IV Total 333.334 ml Output Urine Total 600 ml 950 ml # Voids 10 Laboratory Tests 10/14/17 03:25: White Blood Count 8.0, Red Blood Count 3.89L, Hemoglobin 11.9L, Hematocrit 35.8L , Mean Corpuscular Volume 92, Mean Corpuscular Hemoglobin 30.8, Mean Corpuscular Hemoglobin Concent 33.4, Red Cell Distribution Width 12.6, Platelet Count 152, Mean Platelet Volume 8.6, Neutrophils (%) (Auto) , Lymphocytes (%) ( Auto) , Monocytes (%) (Auto) , Eosinophils (%) (Auto) , Basophils (%) (Auto) , Neutrophils % (Manual) [Pending], Lymphocytes % (Manual) [Pending], Platelet Estimate [Pending], Platelet Morphology [Pending], Sodium Level 140, Potassium Level 3.8, Chloride Level 107, Carbon Dioxide Level 27, Anion Gap 6, Blood Urea Nitrogen 21H, Creatinine 1.7H, Estimat Glomerular Filtration Rate , Glucose Level 82, Calcium Level 8.7 Height (Feet): 5 Height (Inches): 10.00 Weight (Pounds): 190 Objective HEAD AND NECK: No JVP. No LAD. No thyromegaly. Extraocular movement intact. Pupils are reactive to light and accommodation. LUNGS: Decreased breathing sounds. CARDIAC: Regular rate and rhythm. S1 and S2. No murmur. No rub. ABDOMEN: Soft, nontender, and nondistended. EXTREMITIES: Right lower extremity from mid tejeda to the lower part is red. It has some ulceration. No active discharge was noted. ANNIE MARQUEZ Oct 14, 2017 08:47
[2017-10-14] MEDS: Tamsulosin 0.4mg cap ORAL SCH (09:24)
[2017-10-14] MEDS: Digoxin 0.125mg tab ORAL SCH (09:24)
[2017-10-14] MEDS: Xarelto 10mg tab ORAL SCH (09:24)
[2017-10-14] MEDS: Amiodarone 200mg tab ORAL SCH (09:25)
[2017-10-14 11:45] VITALS: BP 128/92
--- NOTE | 2017-10-14 12:49 | General Progress Note ---
Assessment/Plan Problem List: (1) CHF (congestive heart failure) ICD Codes: I50.9 - Heart failure, unspecified SNOMED: 68343208 (2) Sepsis ICD Codes: A41.9 - Sepsis, unspecified organism SNOMED: 89269411 (3) Hypothyroid ICD Codes: E03.9 - Hypothyroidism, unspecified SNOMED: 49933871 (4) Dyspnea ICD Codes: R06.00 - Dyspnea, unspecified SNOMED: 457910328, 520443185 (5) A-fib ICD Codes: I48.91 - Unspecified atrial fibrillation SNOMED: 79342061 (6) DVT (deep venous thrombosis) ICD Codes: I82.409 - Acute embolism and thrombosis of unspecified deep veins of unspecified lower extremity SNOMED: 000173439 (7) HTN (hypertension) ICD Codes: I10 - Essential (primary) hypertension SNOMED: 67867503 (8) BPH (benign prostatic hyperplasia) ICD Codes: N40.0 - Enlarged prostate without lower urinary tract symptoms SNOMED: 407749900, 891667030 (9) Cellulitis of leg ICD Codes: L03.119 - Cellulitis of unspecified part of limb SNOMED: 817380526 Status: unchanged Assessment/Plan ot pt diet wound care cbc bmp am dc plan Subjective Allergies: Coded Allergies: No Known Allergies (Verified , 01/31/08) All Systems: reviewed and negative except above Subjective sl sob Objective Last 24 Hour Vital Signs Date Time Temp Pulse Resp B/P (MAP) Pulse Ox O2 Delivery O2 Flow Rate FiO2 10/14/17 11:45 97.8 98 20 128/92 97 10/14/17 09:24 102 10/14/17 09:23 102 138/82 10/14/17 08:39 97.6 102 20 138/82 98 10/14/17 04:00 97.5 91 21 141/85 96 10/14/17 04:00 96 Room Air 10/14/17 00:00 96 Room Air 10/14/17 00:00 97.5 98 21 141/93 96 10/13/17 20:00 97.7 87 21 117/67 97 10/13/17 20:00 97 Room Air 10/13/17 16:00 98.1 69 17 134/76 98 Room Air Intake and Output 10/13/17 10/14/17 19:00 07:00 Intake Total 480 ml 333.334 ml Output Total 600 ml 950 ml Balance -120 ml -616.666 ml Intake Oral 480 ml IV Total 333.334 ml Output Urine Total 600 ml 950 ml # Voids 10 Laboratory Tests 10/14/17 03:25: White Blood Count 8.0, Red Blood Count 3.89L, Hemoglobin 11.9L, Hematocrit 35.8L , Mean Corpuscular Volume 92, Mean Corpuscular Hemoglobin 30.8, Mean Corpuscular Hemoglobin Concent 33.4, Red Cell Distribution Width 12.6, Platelet Count 152, Mean Platelet Volume 8.6, Neutrophils (%) (Auto) , Lymphocytes (%) ( Auto) , Monocytes (%) (Auto) , Eosinophils (%) (Auto) , Basophils (%) (Auto) , Differential Total Cells Counted 100, Neutrophils % (Manual) 52, Lymphocytes % ( Manual) 18L, Monocytes % (Manual) 6, Eosinophils % (Manual) 23H, Basophils % ( Manual) 1, Band Neutrophils 0, Platelet Estimate Adequate, Platelet Morphology Normal, Sodium Level 140, Potassium Level 3.8, Chloride Level 107, Carbon Dioxide Level 27, Anion Gap 6, Blood Urea Nitrogen 21H, Creatinine 1.7H, Estimat Glomerular Filtration Rate , Glucose Level 82, Calcium Level 8.7 Height (Feet): 5 Height (Inches): 10.00 Weight (Pounds): 190 General Appearance: lethargic EENT: normal ENT inspection Neck: normal alignment Cardiovascular: normal peripheral pulses, normal rate, regular rhythm Respiratory/Chest: chest wall non-tender, lungs clear, normal breath sounds Abdomen: normal bowel sounds, non tender, soft Extremities: normal inspection Edema: no edema noted Arm (L), no edema noted Arm (R), no edema noted Leg (L), no edema noted Leg (R), no edema noted Pedal (L), no edema noted Pedal (R), no edema noted Generalized Neurologic: responsive, motor weakness Skin: normal pigmentation, warm/dry Objective r ankle redness up to mid tejeda LETY MUELLER Oct 14, 2017 12:49
--- NOTE | 2017-10-14 13:22 | Infectious Diseases Prog Note ---
Assessment/Plan Assessment/Plan A; Cellulitis of R leg Chronic DVT of R leg Anemia HPN BPH P; Discontinue Cefepime & Vancomycin PO Keflex X 7 days agree with discharge Subjective ROS Limited/Unobtainable: No HEENT: Reports: no symptoms Respiratory: Reports: no symptoms Cardiovascular: Reports: no symptoms Gastrointestinal/Abdominal: Reports: no symptoms Genitourinary: Reports: no symptoms Musculoskeletal: Reports: pain, other - right ankle Allergies: Coded Allergies: No Known Allergies (Verified , 01/31/08) Objective Vital Signs Last 24 Hour Vital Signs Date Time Temp Pulse Resp B/P (MAP) Pulse Ox O2 Delivery O2 Flow Rate FiO2 10/14/17 11:45 97.8 98 20 128/92 97 10/14/17 09:24 102 10/14/17 09:23 102 138/82 10/14/17 08:39 97.6 102 20 138/82 98 10/14/17 04:00 97.5 91 21 141/85 96 10/14/17 04:00 96 Room Air 10/14/17 00:00 96 Room Air 10/14/17 00:00 97.5 98 21 141/93 96 10/13/17 20:00 97.7 87 21 117/67 97 10/13/17 20:00 97 Room Air 10/13/17 16:00 98.1 69 17 134/76 98 Room Air Height (Feet): 5 Height (Inches): 10.00 Weight (Pounds): 190 General Appearance: no acute distress HEENT: mucous membranes moist Respiratory/Chest: lungs clear Cardiovascular: normal rate Abdomen: soft, non tender Extremities: other - right ankle Skin: rash, other - right lower leg/foot Neurologic/Psychiatric: alert, responsive Laboratory Tests Test 10/14/17 03:25 White Blood Count 8.0 K/UL (4.8-10.8) Red Blood Count 3.89 M/UL (4.70-6.10) L Hemoglobin 11.9 G/DL (14.2-18.0) L Hematocrit 35.8 % (42.0-52.0) L Mean Corpuscular Volume 92 FL (80-99) Mean Corpuscular Hemoglobin 30.8 PG (27.0-31.0) Mean Corpuscular Hemoglobin Concent 33.4 G/DL (32.0-36.0) Red Cell Distribution Width 12.6 % (11.6-14.8) Platelet Count 152 K/UL (150-450) Mean Platelet Volume 8.6 FL (6.5-10.1) Neutrophils (%) (Auto) % (45.0-75.0) Lymphocytes (%) (Auto) % (20.0-45.0) Monocytes (%) (Auto) % (1.0-10.0) Eosinophils (%) (Auto) % (0.0-3.0) Basophils (%) (Auto) % (0.0-2.0) Differential Total Cells Counted 100 Neutrophils % (Manual) 52 % (45-75) Lymphocytes % (Manual) 18 % (20-45) L Monocytes % (Manual) 6 % (1-10) Eosinophils % (Manual) 23 % (0-3) H Basophils % (Manual) 1 % (0-2) Band Neutrophils 0 % (0-8) Platelet Estimate Adequate Platelet Morphology Normal Sodium Level 140 MMOL/L (136-145) Potassium Level 3.8 MMOL/L (3.5-5.1) Chloride Level 107 MMOL/L (98-107) Carbon Dioxide Level 27 MMOL/L (21-32) Anion Gap 6 mmol/L (5-15) Blood Urea Nitrogen 21 mg/dL (7-18) H Creatinine 1.7 MG/DL (0.55-1.30) H Estimat Glomerular Filtration Rate mL/min (>60) Glucose Level 82 MG/DL (74-106) Calcium Level 8.7 MG/DL (8.5-10.1) Current Medications Medications (Trade) Dose Ordered Sig/Brissa Route PRN Reason Start Time Stop Time Status Last Admin Dose Admin Acetaminophen (Tylenol) 650 mg Q4H PRN ORAL fever 10/10/17 00:30 11/09/17 00:29 Al Hydroxide/Mg Hydroxide (Mylanta II) 30 ml Q6H PRN ORAL dyspepsia 10/10/17 00:30 11/09/17 00:29 Amiodarone HCl (Cordarone) 200 mg DAILY ORAL 10/10/17 09:00 11/09/17 08:59 10/14/17 09:25 Amlodipine Besylate (Norvasc) 10 mg DAILY ORAL 10/10/17 09:00 11/09/17 08:59 10/14/17 09:23 Cefepime HCl 1 gm/ Sodium Chloride 55 ml @ 110 mls/hr Q24H IVPB 10/13/17 14:00 10/20/17 13:59 10/13/17 15:23 Dextrose (Dextrose 50%) STAT PRN IV Hypoglycemia 10/10/17 00:30 11/09/17 00:29 Digoxin (Lanoxin) 0.125 mg DAILY ORAL 10/10/17 17:30 11/09/17 17:29 10/14/17 09:24 Donepezil HCl (Aricept) 10 mg QHS ORAL 10/12/17 21:00 11/11/17 20:59 10/13/17 21:22 Levothyroxine Sodium (Synthroid) 25 mcg ACBREAKFAST ORAL 10/10/17 06:30 11/09/17 06:29 10/14/17 05:26 Lorazepam (Ativan 2mg/ml 1ml) 0.5 mg Q4H PRN IV For Anxiety 10/10/17 00:30 10/17/17 00:29 Morphine Sulfate (Morphine Sulfate) 1 mg Q4H PRN IVP For Pain 10/10/17 00:30 10/17/17 00:29 Ondansetron HCl (Zofran) 4 mg Q6H PRN IVP Nausea & Vomiting 10/10/17 00:30 11/09/17 00:29 Polyethylene Glycol (Miralax) 17 gm HSPRN PRN ORAL Constipation 10/10/17 00:30 11/09/17 00:29 Rivaroxaban (Xarelto) 20 mg DAILY ORAL 10/10/17 09:00 11/09/17 08:59 10/14/17 09:24 Tamsulosin HCl (Flomax) 0.4 mg DAILY ORAL 10/10/17 09:00 11/09/17 08:59 10/14/17 09:24 Vancomycin HCl (Vanco rx to dose) 1 ea DAILY PRN MISC Per rx protocol 10/13/17 13:15 11/12/17 13:14 Vancomycin/Sodium Chloride 250 ml @ 166.667 mls/hr Q24H IVPB 10/14/17 01:00 10/19/17 00:59 10/14/17 01:10 Zolpidem Tartrate (Ambien) 5 mg HSPRN PRN ORAL Insomnia 10/10/17 00:30 10/17/17 00:29 JAREN GRUBBS Oct 14, 2017 13:22
[2017-10-14] MEDS ORDERED: CEPHALEXIN500 MG ORAL (14:02)
--- NOTE | 2017-10-14 15:30 | Progress Note ---
SUBJECTIVE: The patient is an 87-year-old male patient with cellulitis of . However, he does have altered mental status and confusion. Cognition has declined below baseline. That is why, daily psychiatric consultation is requested by attending physician. MENTAL STATUS EXAMINATION: This is an 87-year-old male with psychomotor retardation. Appearance is disheveled. Irritable and agitated. Affect guarded and restricted. Intellect is poor. Mood is depressed. Motor activity, psychomotor agitation. Attention span is poor. Orientation x2. Speech is of low volume. Insight and judgment are poor. Denies suicidal or homicidal thoughts. DIAGNOSIS: Paranoid schizophrenia. Continue titrating up on his medications to stabilize his mood. 15 to 20 minutes of supportive therapy. Chart reviewed and discussed with staff. Seen and assessed at bedside. Kip Miller M.D. DR: DONNY JOB#: [id number] CC:
[2017-10-14 15:55] VITALS: BP 128/80
--- NOTE | 2017-10-14 17:32 | Cardiology Progress Note ---
Assessment/Plan Assessment/Plan The patient is seen and examined, full consult note will be dictated. Objective Last 24 Hour Vital Signs Date Time Temp Pulse Resp B/P (MAP) Pulse Ox O2 Delivery O2 Flow Rate FiO2 10/14/17 15:55 97.6 86 20 128/80 98 10/14/17 11:45 97.8 98 20 128/92 97 10/14/17 09:24 102 10/14/17 09:23 102 138/82 10/14/17 08:39 97.6 102 20 138/82 98 10/14/17 04:00 97.5 91 21 141/85 96 10/14/17 04:00 96 Room Air 10/14/17 00:00 96 Room Air 10/14/17 00:00 97.5 98 21 141/93 96 10/13/17 20:00 97.7 87 21 117/67 97 10/13/17 20:00 97 Room Air Intake and Output 10/13/17 10/14/17 19:00 07:00 Intake Total 480 ml 333.334 ml Output Total 600 ml 950 ml Balance -120 ml -616.666 ml Intake Oral 480 ml IV Total 333.334 ml Output Urine Total 600 ml 950 ml # Voids 10 Laboratory Tests Test 10/14/17 03:25 White Blood Count 8.0 K/UL (4.8-10.8) Red Blood Count 3.89 M/UL (4.70-6.10) L Hemoglobin 11.9 G/DL (14.2-18.0) L Hematocrit 35.8 % (42.0-52.0) L Mean Corpuscular Volume 92 FL (80-99) Mean Corpuscular Hemoglobin 30.8 PG (27.0-31.0) Mean Corpuscular Hemoglobin Concent 33.4 G/DL (32.0-36.0) Red Cell Distribution Width 12.6 % (11.6-14.8) Platelet Count 152 K/UL (150-450) Mean Platelet Volume 8.6 FL (6.5-10.1) Neutrophils (%) (Auto) % (45.0-75.0) Lymphocytes (%) (Auto) % (20.0-45.0) Monocytes (%) (Auto) % (1.0-10.0) Eosinophils (%) (Auto) % (0.0-3.0) Basophils (%) (Auto) % (0.0-2.0) Differential Total Cells Counted 100 Neutrophils % (Manual) 52 % (45-75) Lymphocytes % (Manual) 18 % (20-45) L Monocytes % (Manual) 6 % (1-10) Eosinophils % (Manual) 23 % (0-3) H Basophils % (Manual) 1 % (0-2) Band Neutrophils 0 % (0-8) Platelet Estimate Adequate Platelet Morphology Normal Sodium Level 140 MMOL/L (136-145) Potassium Level 3.8 MMOL/L (3.5-5.1) Chloride Level 107 MMOL/L (98-107) Carbon Dioxide Level 27 MMOL/L (21-32) Anion Gap 6 mmol/L (5-15) Blood Urea Nitrogen 21 mg/dL (7-18) H Creatinine 1.7 MG/DL (0.55-1.30) H Estimat Glomerular Filtration Rate mL/min (>60) Glucose Level 82 MG/DL (74-106) Calcium Level 8.7 MG/DL (8.5-10.1) MALATHI BUNCH Oct 14, 2017 17:32
--- NOTE | 2017-10-14 17:45 | Pulmonology Progress Note ---
Assessment/Plan Problems: (1) Cellulitis of leg (2) HTN (hypertension) (3) A-fib (4) Dementia (5) BPH (benign prostatic hyperplasia) (6) DVT (deep venous thrombosis) Assessment/Plan improivng wound care all labs reviewed all notes reviewed dc to [facility] Subjective ROS Limited/Unobtainable: No Constitutional: Reports: no symptoms HEENT: Repors: no symptoms Allergies: Coded Allergies: No Known Allergies (Verified , 01/31/08) Objective Last 24 Hour Vital Signs Date Time Temp Pulse Resp B/P (MAP) Pulse Ox O2 Delivery O2 Flow Rate FiO2 10/14/17 15:55 97.6 86 20 128/80 98 10/14/17 11:45 97.8 98 20 128/92 97 10/14/17 09:24 102 10/14/17 09:23 102 138/82 10/14/17 08:39 97.6 102 20 138/82 98 10/14/17 04:00 97.5 91 21 141/85 96 10/14/17 04:00 96 Room Air 10/14/17 00:00 96 Room Air 10/14/17 00:00 97.5 98 21 141/93 96 10/13/17 20:00 97.7 87 21 117/67 97 10/13/17 20:00 97 Room Air Intake and Output 10/13/17 10/14/17 19:00 07:00 Intake Total 480 ml 333.334 ml Output Total 600 ml 950 ml Balance -120 ml -616.666 ml Intake Oral 480 ml IV Total 333.334 ml Output Urine Total 600 ml 950 ml # Voids 10 Objective General Appearance: WN Lines, tubes and drains: peripheral HEENT: normocephalic, atraumatic Neck: non-tender, normal alignment Respiratory/Chest: chest wall non-tender, lungs clear Cardiovascular/Chest: normal peripheral pulses, normal rate Abdomen: normal bowel sounds, non tender, less edema Genitourinary/Rectal: normal genital exam, normal rectal exam Skin Exam: normal pigmentation Laboratory Tests 10/14/17 03:25: White Blood Count 8.0, Red Blood Count 3.89L, Hemoglobin 11.9L, Hematocrit 35.8L , Mean Corpuscular Volume 92, Mean Corpuscular Hemoglobin 30.8, Mean Corpuscular Hemoglobin Concent 33.4, Red Cell Distribution Width 12.6, Platelet Count 152, Mean Platelet Volume 8.6, Neutrophils (%) (Auto) , Lymphocytes (%) ( Auto) , Monocytes (%) (Auto) , Eosinophils (%) (Auto) , Basophils (%) (Auto) , Differential Total Cells Counted 100, Neutrophils % (Manual) 52, Lymphocytes % ( Manual) 18L, Monocytes % (Manual) 6, Eosinophils % (Manual) 23H, Basophils % ( Manual) 1, Band Neutrophils 0, Platelet Estimate Adequate, Platelet Morphology Normal, Sodium Level 140, Potassium Level 3.8, Chloride Level 107, Carbon Dioxide Level 27, Anion Gap 6, Blood Urea Nitrogen 21H, Creatinine 1.7H, Estimat Glomerular Filtration Rate , Glucose Level 82, Calcium Level 8.7 Current Medications Medications (Trade) Dose Ordered Sig/Brissa Route PRN Reason Start Time Stop Time Status Last Admin Dose Admin Acetaminophen (Tylenol) 650 mg Q4H PRN ORAL fever 10/10/17 00:30 11/09/17 00:29 Al Hydroxide/Mg Hydroxide (Mylanta II) 30 ml Q6H PRN ORAL dyspepsia 10/10/17 00:30 11/09/17 00:29 Amiodarone HCl (Cordarone) 200 mg DAILY ORAL 10/10/17 09:00 11/09/17 08:59 10/14/17 09:25 Amlodipine Besylate (Norvasc) 10 mg DAILY ORAL 10/10/17 09:00 11/09/17 08:59 10/14/17 09:23 Cephalexin (Keflex) 500 mg EVERY 12 HOURS ORAL 10/14/17 21:00 10/21/17 20:59 Dextrose (Dextrose 50%) STAT PRN IV Hypoglycemia 10/10/17 00:30 11/09/17 00:29 Digoxin (Lanoxin) 0.125 mg DAILY ORAL 10/10/17 17:30 11/09/17 17:29 10/14/17 09:24 Donepezil HCl (Aricept) 10 mg QHS ORAL 10/12/17 21:00 11/11/17 20:59 10/13/17 21:22 Levothyroxine Sodium (Synthroid) 25 mcg ACBREAKFAST ORAL 10/10/17 06:30 11/09/17 06:29 10/14/17 05:26 Lorazepam (Ativan 2mg/ml 1ml) 0.5 mg Q4H PRN IV For Anxiety 10/10/17 00:30 10/17/17 00:29 Morphine Sulfate (Morphine Sulfate) 1 mg Q4H PRN IVP For Pain 10/10/17 00:30 10/17/17 00:29 Ondansetron HCl (Zofran) 4 mg Q6H PRN IVP Nausea & Vomiting 10/10/17 00:30 11/09/17 00:29 Polyethylene Glycol (Miralax) 17 gm HSPRN PRN ORAL Constipation 10/10/17 00:30 11/09/17 00:29 Rivaroxaban (Xarelto) 20 mg DAILY ORAL 10/10/17 09:00 11/09/17 08:59 10/14/17 09:24 Tamsulosin HCl (Flomax) 0.4 mg DAILY ORAL 10/10/17 09:00 11/09/17 08:59 10/14/17 09:24 Zolpidem Tartrate (Ambien) 5 mg HSPRN PRN ORAL Insomnia 10/10/17 00:30 10/17/17 00:29 RADHA REEVES Oct 14, 2017 17:45
[2017-10-14] MEDS ORDERED: NS 275ml ONE (18:17)
[2017-10-14] MEDS ORDERED: Tubing IV Secondary IV ONE (18:17)
[2017-10-14] MEDS ORDERED: Cephalexin 500mg cap ORAL SCH (21:00)
--- NOTE | 2017-10-14 23:08 | General Progress Note ---
Assessment/Plan Status: stable Assessment/Plan #. 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 --> The patient has been on Xarelto. --> Most recent imaging completed in June 2016. --> Continue Xarelto for deep venous thrombosis. --> If deep venous thrombosis resolves, consider to stop Xarelto. --> Has improved. #. Anemia due to underlying chronic disease. --> It is chronic in nature. Mild at this time. No transfusion needed. --> Continue to closely monitor at this time; --> Workup reviewed. Hemoglobin goal>7 #. Cellulitis of the right lower extremity. --> Continue antibiotics as per Infectious Disease team. --> Monitor closely. Improved. #. Edema. #. Abnormal gait. #. Coronary artery disease. #. Psychiatric disorder. Subjective Date patient seen: Oct 14, 2017 Constitutional: Denies: no symptoms, chills, diaphoresis, fever, malaise, weakness, other HEENT: Denies: no symptoms, eye pain, blurred vision, tearing, double vision, ear pain, ear discharge, nose pain, nose congestion, throat pain, throat swelling, mouth pain, mouth swelling, other Cardiovascular: Denies: no symptoms, chest pain, edema, irregular heart rate, lightheadedness, palpitations, syncope, other Respiratory: Denies: no symptoms, cough, orthopnea, shortness of breath, SOB with excertion, SOB at rest, sputum, stridor, wheezing, other Gastrointestinal/Abdominal: Denies: no symptoms, abdomen distended, abdominal pain, black stools, tarry stools, blood in stool, constipated, diarrhea, difficulty swallowing, nausea, poor appetite, poor fluid intake, rectal bleeding , vomiting, other Genitourinary: Denies: no symptoms, burning, discharge, frequency, flank pain, hematuria, incontinence, pain, urgency, other Allergies: Coded Allergies: No Known Allergies (Verified , 01/31/08) Subjective Stable. No respiratory distress. Anemia mild. Objective Last 24 Hour Vital Signs Date Time Temp Pulse Resp B/P (MAP) Pulse Ox O2 Delivery O2 Flow Rate FiO2 10/14/17 15:55 97.6 86 20 128/80 98 10/14/17 11:45 97.8 98 20 128/92 97 10/14/17 09:24 102 10/14/17 09:23 102 138/82 10/14/17 08:39 97.6 102 20 138/82 98 10/14/17 04:00 97.5 91 21 141/85 96 10/14/17 04:00 96 Room Air 10/14/17 00:00 96 Room Air 10/14/17 00:00 97.5 98 21 141/93 96 Intake and Output 10/13/17 10/14/17 19:00 07:00 Intake Total 480 ml 333.334 ml Output Total 600 ml 950 ml Balance -120 ml -616.666 ml Intake Oral 480 ml IV Total 333.334 ml Output Urine Total 600 ml 950 ml # Voids 10 Laboratory Tests 10/14/17 03:25: White Blood Count 8.0, Red Blood Count 3.89L, Hemoglobin 11.9L, Hematocrit 35.8L , Mean Corpuscular Volume 92, Mean Corpuscular Hemoglobin 30.8, Mean Corpuscular Hemoglobin Concent 33.4, Red Cell Distribution Width 12.6, Platelet Count 152, Mean Platelet Volume 8.6, Neutrophils (%) (Auto) , Lymphocytes (%) ( Auto) , Monocytes (%) (Auto) , Eosinophils (%) (Auto) , Basophils (%) (Auto) , Differential Total Cells Counted 100, Neutrophils % (Manual) 52, Lymphocytes % ( Manual) 18L, Monocytes % (Manual) 6, Eosinophils % (Manual) 23H, Basophils % ( Manual) 1, Band Neutrophils 0, Platelet Estimate Adequate, Platelet Morphology Normal, Sodium Level 140, Potassium Level 3.8, Chloride Level 107, Carbon Dioxide Level 27, Anion Gap 6, Blood Urea Nitrogen 21H, Creatinine 1.7H, Estimat Glomerular Filtration Rate , Glucose Level 82, Calcium Level 8.7 Height (Feet): 5 Height (Inches): 10.00 Weight (Pounds): 190 Alon Mixon Oct 14, 2017 23:08
--- NOTE | 2017-10-15 00:45 | Consultation ---
DATE OF CONSULTATION: 10/14/2017 ADDENDUM REFERRING PHYSICIAN: Ricardo Ruiz D.O. REASON FOR CONSULTATION: Management of deep venous thrombosis and heart failure. ASSESSMENT AND PLAN: 1. Chronic right lower extremity thrombosis, which is according to the duplex study of right lower extremity venous system shows signs of recanalization and the patient is already on Xarelto for paroxysmal atrial fibrillation. We will continue to treat him also for DVT with the same medication. 2. Paroxysmal atrial fibrillation. Continue amiodarone and Xarelto. Xarelto needs to be given based on the level of creatinine. I would give him mg by mouth daily. 3. History of coronary artery disease, status post myocardial infarction, the detail of this is not known. There is no history of prior cardiac catheterization. The patient is currently stable from coronary artery disease/ischemic heart disease standpoint. 4. History of chronic diastolic heart failure according to the echocardiography obtained in 2015. He had elevated intracardiac filling pressure. 5. History of severe pulmonary hypertension. Currently, the patient does not have any symptoms of shortness of breath. I would consider this to be stable at this time. The patient may benefit from outpatient 2D echocardiography. 6. Chronic kidney disease with some acute component. His baseline creatinine is above 1.5. Nephrology followup. 7. History of hypertension. We will continue him on amlodipine and we will titrate the dose of amlodipine and may add another blood pressure medication to control his blood pressure. I would like to thank, Dr. Ruiz, for allowing me to participate in the care of this patient. Alexy Recio M.D. DR: NEREIDA JOB#: [id number] CC:
--- NOTE | 2017-10-15 05:30 | Consultation ---
DATE OF CONSULTATION: 10/14/2017 NOTE: INCOMPLETE DICTATION CARDIOLOGY CONSULTATION CONSULTING PHYSICIAN: Alexy Recio M.D. REFERRING PHYSICIAN: Ricardo Ruiz D.O. REASON FOR CONSULTATION: Management of DVT as well as heart failure. HISTORY OF PRESENT ILLNESS: The patient is a very unfortunate 87-year-old gentleman, who is known to me, a resident of a nursing facility who initially presents to this hospital with right lower tejeda and knee pain, swelling and tenderness for about a week. The patient denies any history of trauma. He has a history of DVT in the past. He was admitted to medical/surgical unit for evaluation of possible recurrence of DVT and evaluation for possible congestive heart failure. His cardiac history is significant for history of coronary artery disease, status post myocardial infarction, history of congestive heart failure most likely diastolic heart failure due to atrial fibrillation and history of CVA/TIA. His last 2D echocardiography in this facility was from 03/2014 when he had normal LV systolic function with LVEF of about 60% to 65%, mild left ventricular hypertrophy, and RVSP of 12 mmHg. His last 2D echocardiography is from 04/2016 when he presented to the hospital for cellulitis. His 2D echocardiography revealed normal LVEF with left ventricular ejection fraction of 60% to 65%, concentric left ventricular hypertrophy, small pericardial effusion, mild right ventricular enlargement, as well as moderate mitral regurgitation, and grade 3 LV diastolic dysfunction, which was significant for diastolic heart failure. His right ventricular systolic pressure was also measured at 57 mmHg consistent with severe pulmonary hypertension. PAST MEDICAL HISTORY: 1. History of CAD, status post myocardial infarction. 2. History of paroxysmal atrial fibrillation. 3. History of diastolic congestive heart failure. 4. History of cellulitis. 5. History of chronic kidney disease. 6. History of CVA/TIA. 7. History of hypertension. 8. History of anemia. 9. History of lower extremity cellulitis. 10. History of COPD. 11. History of BPH. 12. History of psychiatric disorder. 13. History of dementia. PAST SURGICAL HISTORY: None. ALLERGIES: No known drug allergies. MEDICATIONS: List of medications from nursing facility includes acetaminophen 500 mg q.4 h. p.r.n. pain, Zovirax topical one application q.12 h. p.r.n. rash, acyclovir 800 mg p.o. q.i.d., albuterol inhaler q.6 h. p.r.n. shortness of breath, amiodarone 200 mg p.o. daily, Norvasc 10 mg p.o. daily, Lipitor 10 mg p.o. at bedtime, calcium 500 plus vitamin D tablet one tablet twice daily, Keflex 500 mg q.6 h., digoxin 125 mcg p.o. daily, donepezil 10 mg p.o. daily, doxycycline 100 mg p.o. q.12 h., famotidine 20 mg p.o. daily, Proscar 5 mg p.o. daily, Lasix 40 mg p.o. daily, hydralazine 50 mg three times a day, hydrochlorothiazide 12.5 mg daily, [place] 10/325 mg one tablet q.4 h. p.r.n. pain, Atrovent inhaler twice a day, DuoNeb 3 mL HHN q.8 h. p.r.n. shortness of breath, Synthroid 25 mcg p.o. daily, Ativan 1 mg p.o. at bedtime, 5 mg p.o. daily, metoprolol 25 mg twice daily, morphine 2 mg IV q.4 h. p.r.n. pain, multivitamin one tablet p.o. daily, Zosyn 3.375 g IV piggyback q.8 h., MiraLAX 17 g daily, ranitidine 150 mg at bedtime, Xarelto 20 mg p.o. daily, Flomax 0.4 mg p.o. daily, tramadol 50 mg q.8 h. p.r.n. pain, and vancomycin 1000 mg IV piggyback daily. FAMILY HISTORY: No premature coronary artery disease in first-degree relatives. REVIEW OF SYSTEMS: HEENT: Denies any headache, diplopia, or blurred vision. CONSTITUTIONAL: Denies any fever, chills, night sweats or weight loss. CARDIOVASCULAR: Denies any chest pain, shortness breath, PND, or orthopnea. Complains of right leg edema. Denies any palpitations or syncope. PULMONARY: Denies any cough, hemoptysis, or wheezing. GASTROINTESTINAL: Denies any nausea, vomiting, diarrhea, constipation, abdominal pain, or GI bleed. GENITOURINARY: Denies any hematuria, dysuria, or incontinence. NEUROLOGY: Denies any motor dysfunction, sensory deficit, or altered speech. MUSCULOSKELETAL: Pain in the right lower extremity pain as well as right knee pain and redness and tenderness and warmth. PHYSICAL EXAMINATION: GENERAL: The patient is a very unfortunate 87-year-old gentleman, seen in no respiratory distress. Alert and oriented x2. VITAL SIGNS: At the time of arrival to the hospital, blood pressure was 150/98, respirations of 18, pulse of 100, and temperature 97.7 degrees Fahrenheit. HEENT: Atraumatic and normocephalic. Anicteric. Pupils are equal, round, and reactive to light and accommodation. Extraocular muscles intact. NECK: JVP less than 5 centimeter. No carotid bruit. Carotid upstroke is 2+ bilaterally. CARDIOVASCULAR: Normal S1 and S2. Regular rate and rhythm. No murmurs, gallops, or rubs. PMI is at fourth intercostal space in the midclavicular line. LUNGS: Clear to auscultation bilaterally. ABDOMEN: Soft, nontender, and nondistended. No hepatosplenomegaly. Positive bowel sounds. EXTREMITIES: No evidence of edema, clubbing, or cyanosis. There is evidence of cellulitis including redness, tenderness, edema, and warmth of the right tejeda. LABORATORY AND DIAGNOSTIC DATA: WBC was 8.3, hemoglobin 12.2, hematocrit 37.0, and platelet count is 156. Sodium was 140, potassium is 3.8, chloride... Alexy Recio M.D. DR: SUSAN JOB#: [id number] CC:
--- NOTE | 2017-10-15 11:39 | Diagnostic Imaging Report ---
APPROVED REPORT CPT Code: 97232 Present Symptoms Lower Extremity Edema: Bilateral Comments: R/O DVT Comments Exam was technically difficult near ankle area. RIGHT LEG: Venous imaging reveals recanalized chronic thrombus in the superficial femoral vein. The remainder of the deep venous system is within normal limits. There is no evidence of thrombus in the common femoral, popliteal or calf veins. The greater saphenous vein is also within normal limits. Doppler indicates normal spontaneous flow within these segments. LEFT LEG: Venous imaging reveals a patent deep venous system. There is no evidence of thrombus within the femoral, popliteal or tibial segments. The greater saphenous vein is also within normal limits. Doppler indicates normal spontaneous flow within these segments. There is no evidence of acute deep vein thrombosis.
--- NOTE | 2017-10-15 23:00 | Consultation ---
DATE OF CONSULTATION: 10/13/2017 PSYCHOTHERAPY CONSULTATION PROGRESS NOTE CONSULTING PHYSICIAN: Kostas Villagomez M.D. TREATING ATTENDING PHYSICIAN: Ricardo Ruiz D.O. HISTORY OF PRESENT ILLNESS: The patient is an 87-year-old male patient. The patient is in the nursing facility. The patient was admitted to the hospital due to cellulitis. The patient is very confused and disorganized. The patient is admitted to the hospital and has irritability and for these reasons, he is referred for psychotherapeutic services. This clinician assessed this patient. The patient is alert and oriented to person and place. His mood is irritable. He is forgetful and disorganized. He denies suicidal or homicidal thoughts of ideation. He is very he was able to communicate his thoughts. Immediate memory is fair, however, his long-term memory is poor. The patient is cooperative with this clinician. There is no indication of suicidal or homicidal thoughts of ideation. PAST MEDICAL HISTORY: Includes history of coronary artery disease, congestive heart failure, hypertension, atrial fibrillation, and DVT. ALLERGIES: The patient has no known drug allergies. SUBSTANCE ABUSE HISTORY: There is no indication of alcohol use, illicit substance use, or smoking cigarettes. PSYCHIATRIC HISTORY: The patient has a history of psychosis and depression. SOCIAL HISTORY: The patient lives in a nursing facility. . Financially sustained through [employer]. MENTAL STATUS EXAMINATION: The patient is alert and oriented to person and place. Mood is irritable. Affect blunted. Thought process is disorganized. The patient has poor attention and concentration. This clinician assessed this patient and assessed the patient's mental status. DIAGNOSIS: Rule out major depressive disorder, single episode. PLAN: Provide the patient with reality orientation. Provide the patient with supportive psychotherapy. Encourage the patient to articulate his needs utilizing positive communication skills. Encourage the patient to participate in treatment milieu, addressing the patient's confusion. Provide him with reality orientation. Continue behavioral management. This clinical has reviewed the patient's chart and discussed the treatment with treatment team. Kostas Villagomez PsyD. DR: OSVALDO JOB#: [id number] CC:
--- NOTE | 2017-10-16 14:22 | Discharge Summary ---
Discharge Summary Hospital Course Date of Admission Oct 10, 2017 at 01:31 Date of Discharge Oct 14, 2017 at 18:18 Admitting Diagnosis cellulitis HPI Nomi Garcia is a 87 year old male who was admitted on Oct 10, 2017 at 01:31 for Cellulitis Hospital Course dc summary #[id number] Discharge Medications Continued Medications: Acetaminophen* (Acetaminophen 325MG Tablet*) 325 Mg Tablet 650 MG ORAL Q6H PRN for Fever/Headache/Mild Pain, TAB Amiodarone Hcl* (Amiodarone Hcl*) 400 Mg Tablet 200 MG ORAL DAILY, TAB Amlodipine Besylate (Norvasc) 10 Mg Tablet 10 MG ORAL DAILY, TAB Cephalexin* (Keflex*) 500 Mg Capsule 500 MG ORAL EVERY 12 HOURS for 7 Days, #14 CAP 0 Refills Donepezil Hcl* (Donepezil Hcl*) 10 Mg Tablet 10 MG ORAL DAILY, TAB Levothyroxine Sodium* (Synthroid*) 25 Mcg Tablet 25 MCG ORAL ACBREAKFAST, TAB Take in the morning on an empty stomach, at least 30 minutes before food. Polyethylene Glycol 3350* (Miralax*) 17 Gm Powd.pack 17 GM ORAL DAILY PRN for Constipation, PACKET Rivaroxaban (Xarelto*) 10 Mg Tablet 20 MG ORAL DAILY, #30 TAB 0 Refills Tamsulosin HCl (Flomax) 0.4 Mg Cap 0.4 MG ORAL DAILY, CAP Discharge Condition Upon Discharge: stable Discharge Disposition Patient was discharged to SNF Discharge Diagnoses: Daron (Keaton)Symone NP Oct 16, 2017 14:22
--- NOTE | 2017-10-17 04:46 | Discharge Summary 2 SIG ---
DATE OF ADMISSION: 10/10/2017 DATE OF DISCHARGE: 10/14/2017 REASON FOR ADMISSION: 87-year-old male with history of coronary artery disease, status post [place], paroxysmal atrial fibrillation, diastolic CHF, chronic kidney disease, CVA, hypertension, COPD, BPH, psychiatric disorder, and dementia, presented to emergency department with right lower tejeda and knee pain, swelling and redness for one week. The patient denied any trauma or injury. He denied falls. No fever. No chills. Workup in the emergency room revealed stable vital signs, except blood pressure elevated at 150/98. No leukocytosis. Mild anemia with hemoglobin -12.2 and hematocrit - 37. Electrolytes stable. Evidence of renal insufficiency with BUN -26 and creatinine - 1.5. Albumin -2.9. Stable LFT. The patient was admitted with cellulitis of right lower extremity, chronic DVT of right lower extremity, hypertension, paroxysmal atrial fibrillation, dementia, and BPH. HOSPITAL COURSE: The patient was admitted. The patient was started on empiric antibiotics. ID consult was requested. Vascular studies ordered. DVT prophylaxis provided. Pain management was addressed. Blood culture negative. Venous Duplex of bilateral lower extremity revealed chronic thrombus, recanalized in the superficial femoral vein right lower extremity. X ray of right ankle and tibia fibula x-ray revealed no evidence of acute fracture. Chest x-ray revealed right pleural effusion and slightly prominent pulmonary vascularity. ID follows. IV antibiotic changed to oral prior to discharge to complete the course. Retail Performance Specialist seen and evaluated the patient. Retail Performance Specialist recommended to complete antibiotic course as per ID recommendation. Blood pressure was managed with calcium-channel brayan, remained stable. Digoxin was continued. Xarelto was continued for paroxysmal atrial fibrillation and chronic DVT. No evidence of bleeding. Heart rate was stable. Lipid panel and TSH were both within normal limits. Booth Supervisor closely followed the patient. He recommended to continue amiodarone and Xarelto for paroxysmal atrial fibrillation and dose Xarelto based on the level of creatinine. No history of prior cardiac catheterization. The patient currently was stable from coronary artery disease and ischemic heart disease standpoint. The patient with history of severe pulmonary hypertension, but at this time did not have any symptoms of shortness of breath. The patient may benefit from outpatient Echo. Blood pressure was managed with current regimen and remained stable. TSH within normal limits, current dose of Levothyroxine was continued. Supplemental oxygen provided as needed to keep pulse oximetry above 92%. Pulmonary toilet was on the standby as needed. Prior to discharge, pulse oximetry was stable on room air. No need for supplemental oxygen. Electrolytes were closely monitored and corrected as needed. Renal parameters were monitored. Nephrotoxics were avoided. The patient with a known history of chronic renal insufficiency. Creatinine remained on the baseline. Hydrology Professor clsoely followed. The patient was working with physical therapist. Fall precautions were maintained. Psychiatrist seen and evaluated the patient and diagnosed the patient with paranoid schizophrenia. Psychiatrist optimized psychiatric medication regimen. Shipping Room Supervisor closely followed. Shipping Room Supervisor followed for chronic thrombus of the right lower extremity. Recommended to continue Xarelto. Anemia workup was suggestive of anemia of chronic disease. Goal to keep hemoglobin above 7. No need for transfusion at this time. Pain management was addressed. Bowel regimen was instituted. The patient was stable [facility]. FINAL DIAGNOSES: 1. Cellulitis right lower extremity. 2. Chronic deep venous thrombosis, right lower extremity. 3. Hypertension. 4. Paroxysmal atrial fibrillation. 5. Benign prostatic hypertrophy. 6. Chronic renal insufficiency. 7. Chronic obstructive pulmonary disease. 8. History of cerebrovascular accident. 9. Paranoid schizophrenia. 10. Anemia of chronic disease. 11. Hypothyroidism. DISCHARGE MEDICATIONS: See medication reconciliation list. DISCHARGE INSTRUCTIONS: The [facility] was [facility]. FOLLOWUP: Follow up with medical doctor at the facility. Ricardo Ruiz D.O. Symone Torrestanna N.PValerie DR: Zelalem JOB#: [id number] CC: JOSE ALEJANDRO
== END 2017-10-14 18:18 | DRG 602 ==
LOC: EDUNIT# 23:07 → EDBD 23:07 → EMR 23:30 → 4E 10-10 01:31 → EDBEDREQ 10-10 02:15
DX: L03.115 Cellulitis of right lower limb (principal); N17.0 Acute kidney failure with tubular necrosis; I48.0 Paroxysmal atrial fibrillation; I82.501 Chronic embolism and thrombosis of unspecified deep veins of right lower extremity; I13.0 Hypertensive heart and chronic kidney disease with heart failure and stage 1 through stage 4 chronic kidney disease, or unspecified chronic kidney disease; J44.9 Chronic obstructive pulmonary disease, unspecified; E46 Unspecified protein-calorie malnutrition; I50.32 Chronic diastolic (congestive) heart failure; F03.90 Unspecified dementia, unspecified severity, without behavioral disturbance, psychotic disturbance, mood disturbance, and anxiety; F20.0 Paranoid schizophrenia; E03.9 Hypothyroidism, unspecified; N40.0 Benign prostatic hyperplasia without lower urinary tract symptoms; Z86.73 Personal history of transient ischemic attack (TIA), and cerebral infarction without residual deficits; R26.9 Unspecified abnormalities of gait and mobility; N18.9 Chronic kidney disease, unspecified; I25.10 Atherosclerotic heart disease of native coronary artery without angina pectoris; I25.2 Old myocardial infarction; Z79.01 Long term (current) use of anticoagulants; E78.5 Hyperlipidemia, unspecified; D63.8 Anemia in other chronic diseases classified elsewhere
CPT/HCPCS: 36415; 71045; 80048; 80053; 80061; 80162; 82043; 82044; 82570; 83880; 84300; 84443; 85007; 85025; 87040; 87081; 89050; 93970; 99285

== ENCOUNTER 2018-04-13 14:56 | Inpatient (IN) | payer MEDICARE, MEDICAID ==
[~2018-04-13] VITALS: Ht 172.7 cm; Wt 83.5 kg
[~2018-04-13 14:56] MED LIST changes: +ACETAMINOPHEN325 M1 ORAL; +CEPHALEXIN500 MG ORAL; +DONEPEZIL HCL10 MG ORAL; +DOXYCYCLINE MO100 MG ORAL; +DUONEB 0.5-3(2.53 ML HHN; +HYDRALAZINE HCL50 MG ORAL; +KEFLEX500 MG ORAL; +MIRALAX17 G2 ORAL; +TRAMADOL HCL50 MG ORAL; +XARELTO15 MG ORAL
[2018-04-13 15:00] VITALS: BP 114/65
--- NOTE | 2018-04-13 15:22 | Emergency Room Report ---
History of Present Illness General Chief Complaint: Altered Level of Consciousness Source: Patient, Medical Record Present Illness HPI Patient presents with reports of increased shortness of breath Questionable fall Was also noted the patient had some increased confusion and foul-smelling urine Patient himself has some mild underlying dementia At this time denies any chest pain he has shortness of breath with laying flat Denies any vomiting or diarrhea Denies any back or flank pain Allergies: Coded Allergies: No Known Allergies (Verified , 01/31/08) Patient History Past Medical History: see triage record Pertinent Family History: none Reviewed Nursing Documentation: PMH: Agreed; PSxH: Agreed Nursing Documentation-PM Past Medical History: No History, Except For Hx Cardiac Problems: Yes - anemia, heart failure , cellulitis Hx Hypertension: Yes Hx COPD: Yes - VENOUS THROMBOSIS Hx Cancer: No Hx Gastrointestinal Problems: No Hx Dialysis: No - urinary obstruction, BPH, ckd Hx Neurological Problems: Yes Hx Cerebrovascular Accident: Yes Hx Dementia: Yes Hx Alzheimer's Disease: Yes Review of Systems All Other Systems: negative except mentioned in HPI Physical Exam Vital Signs Date Time Temp Pulse Resp B/P (MAP) Pulse Ox O2 Delivery O2 Flow Rate FiO2 04/13/18 14:56 98.6 73 18 118/59 93 Room Air 98.6 Sp02 EP Interpretation: reviewed, normal General Appearance: no apparent distress Head: normocephalic, atraumatic ENT: dry mucus membranes Neck: supple, thyroid normal Respiratory: no respiratory distress, no retraction, crackles - Both lower lobes Cardiovascular #1: regular rate, rhythm, no edema Gastrointestinal: non tender, soft, no mass Musculoskeletal: other - Moves both upper extremity without focal deficit Neurologic: alert, responsive Skin: normal color, no rash Lymphatic: no adenopathy Medical Decision Making Diagnostic Impression: Primary Impression: Sepsis Additional Impressions: UTI (urinary tract infection) Dehydration ER Course Patient is a fairly complex patient with multiple differential to consideration including but not limited to cardiac cardiopulmonary and vascular emergencies Patient's kidney function is elevated Urine sample shows elevated white blood cells Patient's white blood cell count is also elevated Patient provided with IV antibiotics has history of CHF And admitted for further care Labs Test 04/13/18 15:30 04/13/18 16:18 White Blood Count 14.5 K/UL (4.8-10.8) Red Blood Count 4.42 M/UL (4.70-6.10) Hemoglobin 13.4 G/DL (14.2-18.0) Hematocrit 38.9 % (42.0-52.0) Mean Corpuscular Volume 88 FL (80-99) Mean Corpuscular Hemoglobin 30.3 PG (27.0-31.0) Mean Corpuscular Hemoglobin Concent 34.4 G/DL (32.0-36.0) Red Cell Distribution Width 11.2 % (11.6-14.8) Platelet Count 214 K/UL (150-450) Mean Platelet Volume 8.1 FL (6.5-10.1) Neutrophils (%) (Auto) % (45.0-75.0) Lymphocytes (%) (Auto) % (20.0-45.0) Monocytes (%) (Auto) % (1.0-10.0) Eosinophils (%) (Auto) % (0.0-3.0) Basophils (%) (Auto) % (0.0-2.0) Differential Total Cells Counted 100 Neutrophils % (Manual) 87 % (45-75) Lymphocytes % (Manual) 8 % (20-45) Monocytes % (Manual) 4 % (1-10) Eosinophils % (Manual) 1 % (0-3) Basophils % (Manual) 0 % (0-2) Band Neutrophils 0 % (0-8) Platelet Estimate Adequate Platelet Morphology Normal Red Blood Cell Morphology Normal Sodium Level 138 MMOL/L (136-145) Potassium Level 3.4 MMOL/L (3.5-5.1) Chloride Level 100 MMOL/L (98-107) Carbon Dioxide Level 30 MMOL/L (21-32) Anion Gap 8 mmol/L (5-15) Blood Urea Nitrogen 44 mg/dL (7-18) Creatinine 2.0 MG/DL (0.55-1.30) Estimat Glomerular Filtration Rate mL/min (>60) Glucose Level 109 MG/DL (74-106) Calcium Level 9.8 MG/DL (8.5-10.1) Total Bilirubin 0.6 MG/DL (0.2-1.0) Aspartate Amino Transf (AST/SGOT) 51 U/L (15-37) Alanine Aminotransferase (ALT/SGPT) 34 U/L (12-78) Alkaline Phosphatase 67 U/L (46-116) Total Creatine Kinase 349 U/L (26-308) Creatine Kinase MB 4.2 NG/ML (0.0-3.6) Creatine Kinase MB Relative Index 1.2 Troponin I 0.000 ng/mL (0.000-0.056) Pro-B-Type Natriuretic Peptide 704 pg/mL (0-125) Total Protein 8.0 G/DL (6.4-8.2) Albumin 2.8 G/DL (3.4-5.0) Globulin 5.2 g/dL Albumin/Globulin Ratio 0.5 (1.0-2.7) Urine Color Belinda Urine Appearance Slightly cloudy Urine pH 6 (4.5-8.0) Urine Specific [place] 1.010 (1.005-1.035) Urine Protein 1+ (NEGATIVE) Urine Glucose (UA) Negative (NEGATIVE) Urine Ketones Negative (NEGATIVE) Urine Occult Blood 3+ (NEGATIVE) Urine Nitrite Positive (NEGATIVE) Urine Bilirubin Negative (NEGATIVE) Urine Ictotest Negative Urine Urobilinogen Normal MG/DL (0.0-1.0) Urine Leukocyte Esterase 3+ (NEGATIVE) Urine RBC 30-40 /HPF (0 - 0) Urine WBC 5-10 /HPF (0 - 0) Urine Squamous Epithelial Cells Few /LPF (NONE/OCC) Urine Bacteria Many /HPF (NONE) Urine Mucus Few /LPF (NONE/OCC) EKG Diagnostic Results Rate: normal Rhythm: NSR ST Segments: other - Nonspecific ST T-wave changes Rhythm Strip Diag. Results EP Interpretation: yes Rate: 77 Rhythm: NSR, no PVC's, no ectopy Chest X-Ray Diagnostic Results Chest X-Ray Diagnostic Results : Chest X-Ray Ordered: Yes # of Views/Limited/Complete: 1 View Indication: Chest Pain EP Interpretation: Yes Interpretation: no consolidation, no effusion, no pneumothorax, no acute cardiopulmonary disease - Cardiomegaly Impression: No acute disease Electronically Signed by: Ida Clark DO Last Vital Signs Date Time Temp Pulse Resp B/P (MAP) Pulse Ox O2 Delivery O2 Flow Rate FiO2 04/13/18 14:56 98.6 73 18 118/59 93 Room Air 98.6 Status: improved Disposition: ADMITTED INPATIENT Condition: Serious Ida Clark DO Apr 13, 2018 15:22
[2018-04-13 15:51] LABS: HEMATOCRIT 38.9 % (42.0-52.0); HEMOGLOBIN 13.4 G/DL (14.2-18.0); MEAN CORPUSCULAR VOLUME 88 FL (80-99); PLATELET COUNT 214 K/UL (150-450); RED BLOOD COUNT 4.42 M/UL (4.70-6.10); RED CELL DISTRIBUTION WIDTH 11.2 % (11.6-14.8); WHITE BLOOD COUNT 14.5 K/UL (4.8-10.8)
[2018-04-13 16:01] LABS: ANION GAP 8 mmol/L (5-15); BLOOD UREA NITROGEN 44 mg/dL (7-18); CALCIUM 9.8 MG/DL (8.5-10.1); CARBON DIOXIDE 30 MMOL/L (21-32); CHLORIDE 100 MMOL/L (98-107); POTASSIUM 3.4 MMOL/L (3.5-5.1); SODIUM 138 MMOL/L (136-145)
[2018-04-13 16:14] LABS: ALANINE AMINOTRANSFERASE 34 U/L (12-78); ALBUMIN 2.8 G/DL (3.4-5.0); ALBUMIN/GLOBULIN RATIO 0.5 (1.0-2.7); ALKALINE PHOSPHATASE 67 U/L (46-116); ASPARTATE AMINO TRANSFERASE 51 U/L (15-37); BILIRUBIN,TOTAL 0.6 MG/DL (0.2-1.0); CKMB 4.2 NG/ML (0.0-3.6); CREATINE KINASE 349 U/L (26-308)
[2018-04-13] MEDS ORDERED: TRIAMTERENE-HC1 EAC5 ORAL (16:21)
[2018-04-13 16:25] VITALS: BP 130/83
[2018-04-13 16:29] LABS: APPEARANCE,URINE SLIGHTLY CLOUDY; BILIRUBIN, URINE NEGATIVE (NEGATIVE); COLOR,URINE AMBER; GLUCOSE, URINE (UA) NEGATIVE (NEGATIVE); KETONES,URINE NEGATIVE (NEGATIVE); LEUKOCYTE ESTERASE ,URINE 3+ (NEGATIVE); NITRITE,URINE POSITIVE (NEGATIVE); PH,URINE 6 (4.5-8.0); PROTEIN,URINE 1+ (NEGATIVE); UROBILINOGEN,URINE NORMAL MG/DL (0.0-1.0)
[2018-04-13] MEDS ORDERED: cefTRIAXone 1 GM in D5W 55 ML IVPB ONE (17:15)
[2018-04-13] MEDS ORDERED: Albuterol/Ipratropium 3ml neb HHN PRN (19:00)
[2018-04-13] MEDS ORDERED: Morphine Sulfate 2mg/ml Inj(IV/IM USE ONLY) IVP PRN (19:00)
[2018-04-13] MEDS ORDERED: Miralax 17gm pkt ORAL PRN (19:00)
[2018-04-13 20:00] VITALS: BP 156/76
[2018-04-13] MEDS ORDERED: Vancomycin 1.5 GM/D5W 250ML IVPB SCH (20:00)
[2018-04-13] MEDS: Heparin 5000 units/ml inj SUBQ SCH (20:50)
[2018-04-13] MEDS ORDERED: Cefepime HCl 2 GM in D5W 110 ML IV SCH (22:00)
[2018-04-14] VITALS: BP 145/60
[2018-04-14] MEDS ORDERED: Vancomycin 1 GM in D5W 275 ML IV SCH (00:30)
[2018-04-14] MEDS ORDERED: LORazepam 0.5mg tab ORAL PRN (04:15)
[2018-04-14 04:38] VITALS: BP 133/70
[2018-04-14 07:24] LABS: HEMATOCRIT 39.8 % (42.0-52.0); HEMOGLOBIN 13.4 G/DL (14.2-18.0); MEAN CORPUSCULAR VOLUME 89 FL (80-99); PLATELET COUNT 214 K/UL (150-450); RED BLOOD COUNT 4.46 M/UL (4.70-6.10); RED CELL DISTRIBUTION WIDTH 11.2 % (11.6-14.8); WHITE BLOOD COUNT 13.2 K/UL (4.8-10.8)
[2018-04-14 07:49] LABS: ALANINE AMINOTRANSFERASE 32 U/L (12-78); ALBUMIN 2.7 G/DL (3.4-5.0); ALBUMIN/GLOBULIN RATIO 0.6 (1.0-2.7); ALKALINE PHOSPHATASE 64 U/L (46-116); ANION GAP 7 mmol/L (5-15); ASPARTATE AMINO TRANSFERASE 37 U/L (15-37); BILIRUBIN,TOTAL 0.6 MG/DL (0.2-1.0); BLOOD UREA NITROGEN 39 mg/dL (7-18); CALCIUM 9.7 MG/DL (8.5-10.1); CARBON DIOXIDE 29 MMOL/L (21-32); CHLORIDE 100 MMOL/L (98-107); CREATININE 1.9 MG/DL (0.55-1.30); POTASSIUM 3.1 MMOL/L (3.5-5.1); SODIUM 136 MMOL/L (136-145)
[2018-04-14 08:00] VITALS: BP 129/74
[2018-04-14] MEDS: Heparin 5000 units/ml inj SUBQ SCH (08:32)
--- NOTE | 2018-04-14 08:41 | Diagnostic Imaging Report ---
Indication: Chest pain Technique: One view of the chest Comparison: 10-29 Findings: Previously demonstrated right lung hazy opacity is no longer evident. Lungs and pleural spaces are currently clear. The heart size is upper limits of normal with a left ventricular hypertrophy configuration. The aorta is tortuous ectatic and calcified. Impression: No acute process
--- NOTE | 2018-04-14 08:46 | Consultation ---
History of Present Illness General Date patient seen: Apr 14, 2018 Chief Complaint: Altered Level of Consciousness Reason for Consultation: Sepsis Present Illness HPI Mr. Garcia is a 87 yo male with PMHx of dementia, CAD, CKD and DVT presented from [facility] due to altered level of consciousness. In the ED he was noted to be A/O x 1. Patient is apparently bed bound. Per reports there may have been fall and foul smelling urine but on presentation the only reports some SOB. He was last admitted on October with cellulitis of the right leg. He was found to have WBCs of 14 and but was afebrile. He was admitted for sepsis likely secondary to a UTI and started on Vancomycin and Cefepime. On Exam he was found to have an open wound was found on left upper buttock. This morning he is still afebrile. Cultures are pending. He reports no problems but is a poor historian. He states that he does not know why he is in the hospital and that he has been here for a week. PMHx/PSHx #DVT #BPH #HTN #Hypothyroid #CAD s/p [place] #Dementia #A.fib #CKD #CHF #COPD #Schizophrenia SocHx Lives in a skilled nursing No Current E/T/D FamHx Unable to obtain Allergies: Coded Allergies: No Known Allergies (Verified , 01/31/08) Medication History Scheduled Acyclovir (Zovirax), 800 MG PO QID, (Reported) Amiodarone Hcl* (Amiodarone Hcl*), 200 MG ORAL DAILY, (Reported) Amlodipine Besylate (Norvasc), 2.5 MG ORAL DAILY, (Reported) Atorvastatin Calcium* (Lipitor*), 10 MG ORAL BEDTIME, (Reported) Calcium Carbonate/Vitamin D3 (Calcium 500 + D Tablet), 1 EACH PO BID, (Reported) Cephalexin* (Keflex*), 500 MG ORAL Q6H Cephalexin* (Keflex*), 500 MG ORAL EVERY 12 HOURS, (Reported) Digoxin* (Digoxin*), 125 MCG ORAL DAILY, (Reported) Donepezil Hcl* (Donepezil Hcl*), 10 MG ORAL DAILY, (Reported) Doxycycline Monohydrate* (Doxycycline Monohydrate*), 100 MG ORAL Q12H Famotidine (Famotidine), 20 MG ORAL DAILY, (Reported) Finasteride* (Proscar*), 5 MG ORAL DAILY, (Reported) Finasteride* (Proscar*), 5 MG ORAL DAILY, (Reported) Furosemide* (Lasix*), 40 MG ORAL DAILY, (Reported) Hydralazine Hcl* (Hydralazine Hcl*), 50 MG ORAL THREE TIMES A DAY, (Reported) Hydrochlorothiazide* (Hydrochlorothiazide*), 12.5 MG ORAL DAILY, (Reported) Levothyroxine Sodium* (Synthroid*), 50 MCG ORAL ACBREAKFAST, (Reported) Lorazepam* (Ativan*), 1 MG ORAL BEDTIME, (Reported) Metolazone (Metolazone), 5 MG ORAL DAILY, (Reported) Metoprolol Tartrate* (Metoprolol Tartrate*), 25 MG ORAL EVERY 12 HOURS, ( Reported) Metoprolol Tartrate* (Metoprolol Tartrate*), 50 MG ORAL DAILY, (Reported) Multivitamin (Multi Vitamin Daily), 1 TAB ORAL DAILY, (Reported) Rcgpcmgvtvyx-Ztuz-Dufrymwu,Iso (Zosyn 3.375 Gm Pre Mix-Bag), 3.375 GM IVPB EVERY 8 HOURS, (Reported) Ranitidine Hcl* (Ranitidine Hcl*), 150 MG PO QHS, (Reported) Rivaroxaban (Xarelto*), 20 MG ORAL DAILY, (Reported) Rivaroxaban (Xarelto), 15 MG ORAL DAILY, (Reported) Tamsulosin HCl (Flomax), 0.4 MG ORAL DAILY, (Reported) Tamsulosin Hcl (Tamsulosin Hcl*), 0.4 MG ORAL BEDTIME, (Reported) Triamterene/Hydrochlorothiazide* (Dyazide 37.5-25 Mg Tab*), 1 TAB ORAL DAILY, ( Reported) Vancomycin HCl (Vancocin HCl), 1,000 MG IVPB DAILY, (Reported) Vancomycin Hcl/D5w (Vancomycin-D5w 1 G/250 Ml), 1.25 GM IVPB Q24H, (Reported) Scheduled PRN Acetaminophen (Acetaminophen), 500 MG ORAL Q4H PRN for Pain Scale (3-5), ( Reported) Acetaminophen* (Acetaminophen 325MG Tablet*), 650 MG ORAL Q6H PRN for Fever/ Headache/Mild Pain, (Reported) Acyclovir (Zovirax), 1 APPLIC TOPIC Q12HR PRN for RASH, (Reported) Albuterol Sulfate (Albuterol Sulfate), 0.63 MG HHN Q6HR PRN for Shortness of Breath, (Reported) Hydrocodone Bit/Acetaminophen 10-325* ([place] 10-325*), 1 TAB ORAL Q4H PRN for For Pain, (Reported) Ipratropium/Albuterol Sulfate (DuoNeb 0.5-3(2.5)mg/3ml), 3 ML HHN EVERY 8 HOURS PRN for Shortness of Breath, (Reported) Morphine Sulfate* (Morphine Sulfate*), 2 MG IV Q4HR PRN for For Pain, (Reported) Polyethylene Glycol 3350* (Miralax*), 17 GM ORAL DAILY PRN for Constipation, ( Reported) Tramadol Hcl* (Ultram*), 50 MG ORAL Q8HR PRN for For Pain, (Reported) Miscellaneous Medications Ipratropium [place] (Atrovent Hfa), 12.9 GM IH, (Reported) Patient History Healthcare decision maker Resuscitation status Full Code Advanced Directive on File Review of Systems Constitutional: Denies: chills, fever Eye: Denies: blurred vision, double vision, nose congestion ENT: Denies: ear pain, nose pain Respiratory: Denies: cough, shortness of breath, wheezing Cardiovascular: Denies: chest pain, edema, syncope Gastrointestinal: Denies: abdominal pain, constipation, diarrhea, nausea, vomiting Genitourinary: Denies: dysuria Musculoskeletal: Denies: back pain, joint pain Skin: Denies: rash, change in color Neurological: Denies: headache, numbness, seizure Endocrine: Denies: increased thirst, increased urine Hematologic/Lymphatic: Denies: anemia, easy bruising Physical Exam Last 24 Hour Vital Signs Date Time Temp Pulse Resp B/P (MAP) Pulse Ox O2 Delivery O2 Flow Rate FiO2 04/14/18 04:38 98.0 73 20 133/70 (91) 98 98.0 04/14/18 03:36 56 04/14/18 00:00 97.0 78 20 145/60 (88) 97 97.0 04/13/18 23:44 57 04/13/18 21:00 Room Air 04/13/18 20:00 98.0 66 20 156/76 (102) 98 98.0 04/13/18 19:57 68 18 Room Air 04/13/18 19:50 72 04/13/18 17:58 Room Air 04/13/18 17:39 98.1 65 18 130/83 95 Room Air 04/13/18 16:25 98.1 65 18 130/83 95 Room Air 98.1 04/13/18 15:00 99.1 66 13 114/65 99 Room Air 99.1 04/13/18 14:56 98.6 73 18 118/59 93 Room Air 98.6 Laboratory Tests Test 04/13/18 15:30 04/13/18 16:18 04/14/18 06:20 White Blood Count 14.5 K/UL (4.8-10.8) H 13.2 K/UL (4.8-10.8) H Red Blood Count 4.42 M/UL (4.70-6.10) L 4.46 M/UL (4.70-6.10) L Hemoglobin 13.4 G/DL (14.2-18.0) L 13.4 G/DL (14.2-18.0) L Hematocrit 38.9 % (42.0-52.0) L 39.8 % (42.0-52.0) L Mean Corpuscular Volume 88 FL (80-99) 89 FL (80-99) Mean Corpuscular Hemoglobin 30.3 PG (27.0-31.0) 30.1 PG (27.0-31.0) Mean Corpuscular Hemoglobin Concent 34.4 G/DL (32.0-36.0) 33.7 G/DL (32.0-36.0) Red Cell Distribution Width 11.2 % (11.6-14.8) L 11.2 % (11.6-14.8) L Platelet Count 214 K/UL (150-450) 214 K/UL (150-450) Mean Platelet Volume 8.1 FL (6.5-10.1) 8.3 FL (6.5-10.1) Neutrophils (%) (Auto) % (45.0-75.0) % (45.0-75.0) Lymphocytes (%) (Auto) % (20.0-45.0) % (20.0-45.0) Monocytes (%) (Auto) % (1.0-10.0) % (1.0-10.0) Eosinophils (%) (Auto) % (0.0-3.0) % (0.0-3.0) Basophils (%) (Auto) % (0.0-2.0) % (0.0-2.0) Differential Total Cells Counted 100 100 Neutrophils % (Manual) 87 % (45-75) H 90 % (45-75) H Lymphocytes % (Manual) 8 % (20-45) L 4 % (20-45) L Monocytes % (Manual) 4 % (1-10) 3 % (1-10) Eosinophils % (Manual) 1 % (0-3) 3 % (0-3) Basophils % (Manual) 0 % (0-2) 0 % (0-2) Band Neutrophils 0 % (0-8) 0 % (0-8) Platelet Estimate Adequate Adequate Platelet Morphology Normal Normal Red Blood Cell Morphology Normal Normal Sodium Level 138 MMOL/L (136-145) 136 MMOL/L (136-145) Potassium Level 3.4 MMOL/L (3.5-5.1) L 3.1 MMOL/L (3.5-5.1) L Chloride Level 100 MMOL/L (98-107) 100 MMOL/L (98-107) Carbon Dioxide Level 30 MMOL/L (21-32) 29 MMOL/L (21-32) Anion Gap 8 mmol/L (5-15) 7 mmol/L (5-15) Blood Urea Nitrogen 44 mg/dL (7-18) H 39 mg/dL (7-18) H Creatinine 2.0 MG/DL (0.55-1.30) H 1.9 MG/DL (0.55-1.30) H Estimat Glomerular Filtration Rate mL/min (>60) mL/min (>60) Glucose Level 109 MG/DL (74-106) H 99 MG/DL (74-106) Calcium Level 9.8 MG/DL (8.5-10.1) 9.7 MG/DL (8.5-10.1) Total Bilirubin 0.6 MG/DL (0.2-1.0) 0.6 MG/DL (0.2-1.0) Aspartate Amino Transf (AST/SGOT) 51 U/L (15-37) H 37 U/L (15-37) Alanine Aminotransferase (ALT/SGPT) 34 U/L (12-78) 32 U/L (12-78) Alkaline Phosphatase 67 U/L (46-116) 64 U/L (46-116) Total Creatine Kinase 349 U/L (26-308) H Creatine Kinase MB 4.2 NG/ML (0.0-3.6) H Creatine Kinase MB Relative Index 1.2 Troponin I 0.000 ng/mL (0.000-0.056) Pro-B-Type Natriuretic Peptide 704 pg/mL (0-125) H Total Protein 8.0 G/DL (6.4-8.2) 7.4 G/DL (6.4-8.2) Albumin 2.8 G/DL (3.4-5.0) L 2.7 G/DL (3.4-5.0) L Globulin 5.2 g/dL 4.7 g/dL Albumin/Globulin Ratio 0.5 (1.0-2.7) L 0.6 (1.0-2.7) L Urine Color Belinda Urine Appearance Slightly cloudy Urine pH 6 (4.5-8.0) Urine Specific [place] 1.010 (1.005-1.035) Urine Protein 1+ (NEGATIVE) H Urine Glucose (UA) Negative (NEGATIVE) Urine Ketones Negative (NEGATIVE) Urine Occult Blood 3+ (NEGATIVE) H Urine Nitrite Positive (NEGATIVE) H Urine Bilirubin Negative (NEGATIVE) Urine Ictotest Negative Urine Urobilinogen Normal MG/DL (0.0-1.0) Urine Leukocyte Esterase 3+ (NEGATIVE) H Urine RBC 30-40 /HPF (0 - 0) H Urine WBC 5-10 /HPF (0 - 0) H Urine Squamous Epithelial Cells Few /LPF (NONE/OCC) Urine Bacteria Many /HPF (NONE) H Urine Mucus Few /LPF (NONE/OCC) H Height (Feet): 5 Height (Inches): 8.00 Weight (Pounds): 168 Medications Current Medications Medications (Trade) Dose Ordered Sig/Brissa Route PRN Reason Start Time Stop Time Status Last Admin Dose Admin Acetaminophen (Tylenol) 650 mg Q4H PRN ORAL fever 04/13/18 19:00 05/13/18 18:59 Albuterol/ Ipratropium (Albuterol/ Ipratropium) 3 ml Q4H PRN HHN Shortness of Breath 04/13/18 19:00 04/18/18 18:59 Cefepime HCl 1 gm/ Dextrose 110 ml @ 220 mls/hr Q24H IVPB 04/14/18 22:00 04/21/18 21:59 Donepezil HCl (Aricept) 10 mg QHS ORAL 04/14/18 21:00 05/14/18 20:59 Heparin Sodium (Porcine) (Heparin 5000 units/ml) 5,000 units EVERY 12 HOURS SUBQ 04/13/18 21:00 05/13/18 20:59 Lorazepam (Ativan) 0.5 mg Q6H PRN ORAL For Anxiety 04/14/18 04:15 04/21/18 04:14 Morphine Sulfate (Morphine Sulfate) 2 mg Q4H PRN IVP Moderate Pain (Pain Scale 4-6) 04/13/18 19:00 04/20/18 18:59 Ondansetron HCl (Zofran) 4 mg Q6H PRN IVP Nausea & Vomiting 04/13/18 19:00 05/13/18 18:59 Polyethylene Glycol (Miralax) 17 gm DAILYPRN PRN ORAL Constipation 04/13/18 19:00 05/13/18 18:59 Temazepam (Restoril) 15 mg HSPRN PRN ORAL Insomnia 04/13/18 19:00 04/20/18 18:59 04/13/18 20:35 Vancomycin HCl (Vanco rx to dose) 1 ea DAILY PRN MISC per rx protocol 04/13/18 19:15 05/13/18 19:14 Vancomycin/Sodium Chloride 250 ml @ 166.667 mls/hr Q24H IVPB 04/14/18 20:00 04/19/18 19:59 Objective Narrative Gen: NAD, well appearing, alert but only orient to name HEENT: NCAT, MMM, EOMI, PERRL, No Oral lesion, no scleral icterus, Poor dentition NECK: full range of motion, supple, no meningismus, No LAD, No JVD LUNGS: CTAB, No W/C, No Accessory muscle use CARDS: RRR, S1, S2, No M/R/G,~ ABD: Soft, NT, ND, No R/G, + BS, No HSM, No Masses Ext: C/C/E, Pulses 2+ B/L (DP, Rad):~ NEURO: A/O x 4, Strength and Sensation Grossly intact PSYCH: mood/affect normal SKIN: warm/dry, No rashes, Abrasion / ulceration on his sacrum and right testicle, No purulent drainage present. Assessment/Plan Assessment/Plan 87 yo male with PMHx of dementia, CAD, CKD and DVT presented from [facility] due to altered level of consciousness and found to have sepsis. # Sepsis Likley secondary to UTI but cultures still pending, Afebrile on antibiotics #Leukocytosis likely secondary to above #Right buttock and testicular wounds - Not likely to currently infected - Monitor #Hx of right leg cellulitis #Hx of ESBL UTI #DVT #BPH #HTN #Hypothyroid #CAD s/p [place] #Dementia #A.fib #CKD #CHF #COPD #Schizophrenia PLAN: #Continue cefepime #2/7 an vancomycin #2/7pending cultures #f/u Urine and blood cultures # Monitor WBCs and Temps # Supportive care Thank you for consulting us for the care of this patient. We will continue to follow with you. Kash Ribeiro M.D. Apr 14, 2018 08:46
[2018-04-14 11:54] VITALS: BP 116/59
[2018-04-14] MEDS ORDERED: HYDROcodone/Acetamin 10/325 tab ORAL PRN (12:00)
--- NOTE | 2018-04-14 12:19 | Consultation ---
History of Present Illness General Date patient seen: Apr 14, 2018 Chief Complaint: Altered Level of Consciousness Reason for Consultation: Sepsis Present Illness HPI 87 year old male with hx of dementia, CAD, BPH, HTN, snf resident presented with reports of increased shortness of breath. Patient had also some increased confusion and foul-smelling urine. Pt is confused and doesn't know why he is in the hospital. Allergies: Coded Allergies: No Known Allergies (Verified , 01/31/08) Medication History Scheduled Acyclovir (Zovirax), 800 MG PO QID, (Reported) Amiodarone Hcl* (Amiodarone Hcl*), 200 MG ORAL DAILY, (Reported) Amlodipine Besylate (Norvasc), 2.5 MG ORAL DAILY, (Reported) Atorvastatin Calcium* (Lipitor*), 10 MG ORAL BEDTIME, (Reported) Calcium Carbonate/Vitamin D3 (Calcium 500 + D Tablet), 1 EACH PO BID, (Reported) Cephalexin* (Keflex*), 500 MG ORAL Q6H Cephalexin* (Keflex*), 500 MG ORAL EVERY 12 HOURS, (Reported) Digoxin* (Digoxin*), 125 MCG ORAL DAILY, (Reported) Donepezil Hcl* (Donepezil Hcl*), 10 MG ORAL DAILY, (Reported) Doxycycline Monohydrate* (Doxycycline Monohydrate*), 100 MG ORAL Q12H Famotidine (Famotidine), 20 MG ORAL DAILY, (Reported) Finasteride* (Proscar*), 5 MG ORAL DAILY, (Reported) Finasteride* (Proscar*), 5 MG ORAL DAILY, (Reported) Furosemide* (Lasix*), 40 MG ORAL DAILY, (Reported) Hydralazine Hcl* (Hydralazine Hcl*), 50 MG ORAL THREE TIMES A DAY, (Reported) Hydrochlorothiazide* (Hydrochlorothiazide*), 12.5 MG ORAL DAILY, (Reported) Levothyroxine Sodium* (Synthroid*), 50 MCG ORAL ACBREAKFAST, (Reported) Lorazepam* (Ativan*), 1 MG ORAL BEDTIME, (Reported) Metolazone (Metolazone), 5 MG ORAL DAILY, (Reported) Metoprolol Tartrate* (Metoprolol Tartrate*), 25 MG ORAL EVERY 12 HOURS, ( Reported) Metoprolol Tartrate* (Metoprolol Tartrate*), 50 MG ORAL DAILY, (Reported) Multivitamin (Multi Vitamin Daily), 1 TAB ORAL DAILY, (Reported) Yvnclskauykr-Abuo-Pixwjmez,Iso (Zosyn 3.375 Gm Pre Mix-Bag), 3.375 GM IVPB EVERY 8 HOURS, (Reported) Ranitidine Hcl* (Ranitidine Hcl*), 150 MG PO QHS, (Reported) Rivaroxaban (Xarelto*), 20 MG ORAL DAILY, (Reported) Rivaroxaban (Xarelto), 15 MG ORAL DAILY, (Reported) Tamsulosin HCl (Flomax), 0.4 MG ORAL DAILY, (Reported) Tamsulosin Hcl (Tamsulosin Hcl*), 0.4 MG ORAL BEDTIME, (Reported) Triamterene/Hydrochlorothiazide* (Dyazide 37.5-25 Mg Tab*), 1 TAB ORAL DAILY, ( Reported) Vancomycin HCl (Vancocin HCl), 1,000 MG IVPB DAILY, (Reported) Vancomycin Hcl/D5w (Vancomycin-D5w 1 G/250 Ml), 1.25 GM IVPB Q24H, (Reported) Scheduled PRN Acetaminophen (Acetaminophen), 500 MG ORAL Q4H PRN for Pain Scale (3-5), ( Reported) Acetaminophen* (Acetaminophen 325MG Tablet*), 650 MG ORAL Q6H PRN for Fever/ Headache/Mild Pain, (Reported) Acyclovir (Zovirax), 1 APPLIC TOPIC Q12HR PRN for RASH, (Reported) Albuterol Sulfate (Albuterol Sulfate), 0.63 MG HHN Q6HR PRN for Shortness of Breath, (Reported) Hydrocodone Bit/Acetaminophen 10-325* ([place] 10-325*), 1 TAB ORAL Q4H PRN for For Pain, (Reported) Ipratropium/Albuterol Sulfate (DuoNeb 0.5-3(2.5)mg/3ml), 3 ML HHN EVERY 8 HOURS PRN for Shortness of Breath, (Reported) Morphine Sulfate* (Morphine Sulfate*), 2 MG IV Q4HR PRN for For Pain, (Reported) Polyethylene Glycol 3350* (Miralax*), 17 GM ORAL DAILY PRN for Constipation, ( Reported) Tramadol Hcl* (Ultram*), 50 MG ORAL Q8HR PRN for For Pain, (Reported) Miscellaneous Medications Ipratropium [place] (Atrovent Hfa), 12.9 GM IH, (Reported) Patient History Healthcare decision maker Resuscitation status Full Code Advanced Directive on File Past Medical/Surgical History Past Medical/Surgical History: (1) CHF (congestive heart failure) (2) BPH (benign prostatic hyperplasia) (3) HTN (hypertension) (4) A-fib (5) Dementia (6) CAD (coronary artery disease) Review of Systems All Other Systems: negative except mentioned in HPI Physical Exam General Appearance: WD/WN Lines, tubes and drains: peripheral HEENT: normocephalic Neck: non-tender, normal alignment Respiratory/Chest: chest wall non-tender, lungs clear Breasts: no masses Cardiovascular/Chest: normal peripheral pulses, normal rate Abdomen: normal bowel sounds, non tender Genitourinary/Rectal: normal genital exam Extremities: normal range of motion Skin Exam: normal pigmentation 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: liquor 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 II-XII grossly normal Last 24 Hour Vital Signs Date Time Temp Pulse Resp B/P (MAP) Pulse Ox O2 Delivery O2 Flow Rate FiO2 04/14/18 09:44 Room Air 04/14/18 08:35 74 16 Room Air 04/14/18 08:00 54 04/14/18 08:00 97.7 63 18 129/74 (92) 97 97.7 04/14/18 04:38 98.0 73 20 133/70 (91) 98 98.0 04/14/18 03:36 56 04/14/18 00:00 97.0 78 20 145/60 (88) 97 97.0 04/13/18 23:44 57 04/13/18 21:00 Room Air 04/13/18 20:00 98.0 66 20 156/76 (102) 98 98.0 04/13/18 19:57 68 18 Room Air 04/13/18 19:50 72 04/13/18 17:58 Room Air 04/13/18 17:39 98.1 65 18 130/83 95 Room Air 04/13/18 16:25 98.1 65 18 130/83 95 Room Air 98.1 04/13/18 15:00 99.1 66 13 114/65 99 Room Air 99.1 04/13/18 14:56 98.6 73 18 118/59 93 Room Air 98.6 Laboratory Tests Test 04/13/18 15:30 04/13/18 16:18 04/14/18 06:20 White Blood Count 14.5 K/UL (4.8-10.8) H 13.2 K/UL (4.8-10.8) H Red Blood Count 4.42 M/UL (4.70-6.10) L 4.46 M/UL (4.70-6.10) L Hemoglobin 13.4 G/DL (14.2-18.0) L 13.4 G/DL (14.2-18.0) L Hematocrit 38.9 % (42.0-52.0) L 39.8 % (42.0-52.0) L Mean Corpuscular Volume 88 FL (80-99) 89 FL (80-99) Mean Corpuscular Hemoglobin 30.3 PG (27.0-31.0) 30.1 PG (27.0-31.0) Mean Corpuscular Hemoglobin Concent 34.4 G/DL (32.0-36.0) 33.7 G/DL (32.0-36.0) Red Cell Distribution Width 11.2 % (11.6-14.8) L 11.2 % (11.6-14.8) L Platelet Count 214 K/UL (150-450) 214 K/UL (150-450) Mean Platelet Volume 8.1 FL (6.5-10.1) 8.3 FL (6.5-10.1) Neutrophils (%) (Auto) % (45.0-75.0) % (45.0-75.0) Lymphocytes (%) (Auto) % (20.0-45.0) % (20.0-45.0) Monocytes (%) (Auto) % (1.0-10.0) % (1.0-10.0) Eosinophils (%) (Auto) % (0.0-3.0) % (0.0-3.0) Basophils (%) (Auto) % (0.0-2.0) % (0.0-2.0) Differential Total Cells Counted 100 100 Neutrophils % (Manual) 87 % (45-75) H 90 % (45-75) H Lymphocytes % (Manual) 8 % (20-45) L 4 % (20-45) L Monocytes % (Manual) 4 % (1-10) 3 % (1-10) Eosinophils % (Manual) 1 % (0-3) 3 % (0-3) Basophils % (Manual) 0 % (0-2) 0 % (0-2) Band Neutrophils 0 % (0-8) 0 % (0-8) Platelet Estimate Adequate Adequate Platelet Morphology Normal Normal Red Blood Cell Morphology Normal Normal Sodium Level 138 MMOL/L (136-145) 136 MMOL/L (136-145) Potassium Level 3.4 MMOL/L (3.5-5.1) L 3.1 MMOL/L (3.5-5.1) L Chloride Level 100 MMOL/L (98-107) 100 MMOL/L (98-107) Carbon Dioxide Level 30 MMOL/L (21-32) 29 MMOL/L (21-32) Anion Gap 8 mmol/L (5-15) 7 mmol/L (5-15) Blood Urea Nitrogen 44 mg/dL (7-18) H 39 mg/dL (7-18) H Creatinine 2.0 MG/DL (0.55-1.30) H 1.9 MG/DL (0.55-1.30) H Estimat Glomerular Filtration Rate mL/min (>60) mL/min (>60) Glucose Level 109 MG/DL (74-106) H 99 MG/DL (74-106) Calcium Level 9.8 MG/DL (8.5-10.1) 9.7 MG/DL (8.5-10.1) Total Bilirubin 0.6 MG/DL (0.2-1.0) 0.6 MG/DL (0.2-1.0) Aspartate Amino Transf (AST/SGOT) 51 U/L (15-37) H 37 U/L (15-37) Alanine Aminotransferase (ALT/SGPT) 34 U/L (12-78) 32 U/L (12-78) Alkaline Phosphatase 67 U/L (46-116) 64 U/L (46-116) Total Creatine Kinase 349 U/L (26-308) H Creatine Kinase MB 4.2 NG/ML (0.0-3.6) H Creatine Kinase MB Relative Index 1.2 Troponin I 0.000 ng/mL (0.000-0.056) Pro-B-Type Natriuretic Peptide 704 pg/mL (0-125) H Total Protein 8.0 G/DL (6.4-8.2) 7.4 G/DL (6.4-8.2) Albumin 2.8 G/DL (3.4-5.0) L 2.7 G/DL (3.4-5.0) L Globulin 5.2 g/dL 4.7 g/dL Albumin/Globulin Ratio 0.5 (1.0-2.7) L 0.6 (1.0-2.7) L Urine Color Belinda Urine Appearance Slightly cloudy Urine pH 6 (4.5-8.0) Urine Specific [place] 1.010 (1.005-1.035) Urine Protein 1+ (NEGATIVE) H Urine Glucose (UA) Negative (NEGATIVE) Urine Ketones Negative (NEGATIVE) Urine Occult Blood 3+ (NEGATIVE) H Urine Nitrite Positive (NEGATIVE) H Urine Bilirubin Negative (NEGATIVE) Urine Ictotest Negative Urine Urobilinogen Normal MG/DL (0.0-1.0) Urine Leukocyte Esterase 3+ (NEGATIVE) H Urine RBC 30-40 /HPF (0 - 0) H Urine WBC 5-10 /HPF (0 - 0) H Urine Squamous Epithelial Cells Few /LPF (NONE/OCC) Urine Bacteria Many /HPF (NONE) H Urine Mucus Few /LPF (NONE/OCC) H Microbiology Date/Time Source Procedure Growth Status 04/13/18 16:18 Urine,Clean Catch Urine Culture - Preliminary Gram Negative Bacillus 1 Resulted Height (Feet): 5 Height (Inches): 8.00 Weight (Pounds): 168 Medications Current Medications Medications (Trade) Dose Ordered Sig/Brissa Route PRN Reason Start Time Stop Time Status Last Admin Dose Admin Acetaminophen (Tylenol) 650 mg Q4H PRN ORAL fever 04/13/18 19:00 05/13/18 18:59 Albuterol/ Ipratropium (Albuterol/ Ipratropium) 3 ml Q4H PRN HHN Shortness of Breath 04/13/18 19:00 04/18/18 18:59 Cefepime HCl 1 gm/ Dextrose 110 ml @ 220 mls/hr Q24H IVPB 04/14/18 22:00 04/21/18 21:59 Donepezil HCl (Aricept) 10 mg QHS ORAL 04/14/18 21:00 05/14/18 20:59 Heparin Sodium (Porcine) (Heparin 5000 units/ml) 5,000 units EVERY 12 HOURS SUBQ 04/13/18 21:00 05/13/18 20:59 Lorazepam (Ativan) 0.5 mg Q6H PRN ORAL For Anxiety 04/14/18 04:15 04/21/18 04:14 Morphine Sulfate (Morphine Sulfate) 2 mg Q4H PRN IVP Moderate Pain (Pain Scale 4-6) 04/13/18 19:00 04/20/18 18:59 Ondansetron HCl (Zofran) 4 mg Q6H PRN IVP Nausea & Vomiting 04/13/18 19:00 05/13/18 18:59 Polyethylene Glycol (Miralax) 17 gm DAILYPRN PRN ORAL Constipation 04/13/18 19:00 05/13/18 18:59 Potassium Chloride 100 ml @ 100 mls/hr Q4H IVPB 04/14/18 09:30 04/14/18 22:29 04/14/18 10:20 Temazepam (Restoril) 15 mg HSPRN PRN ORAL Insomnia 04/13/18 19:00 04/20/18 18:59 04/13/18 20:35 Vancomycin HCl (Vanco rx to dose) 1 ea DAILY PRN MISC per rx protocol 04/13/18 19:15 05/13/18 19:14 Vancomycin/Sodium Chloride 250 ml @ 166.667 mls/hr Q24H IVPB 04/14/18 20:00 04/19/18 19:59 Assessment/Plan Problem List: (1) COPD with acute exacerbation ICD Codes: J44.1 - Chronic obstructive pulmonary disease with (acute) exacerbation SNOMED: 439946027 (2) A-fib ICD Codes: I48.91 - Unspecified atrial fibrillation SNOMED: 57292950 (3) HTN (hypertension) ICD Codes: I10 - Essential (primary) hypertension SNOMED: 98495943 (4) CAD (coronary artery disease) ICD Codes: I25.10 - Atherosclerotic heart disease of [place] coronary artery without angina pectoris SNOMED: 59947627 (5) BPH (benign prostatic hyperplasia) ICD Codes: N40.0 - Enlarged prostate without lower urinary tract symptoms SNOMED: 804300276, 496417500 (6) Dementia ICD Codes: F03.90 - Dementia SNOMED: 99892421 Assessment/Plan respiratory treatment check sputum titrate fio2 to sat of 92% check electrolytes Echo meds from snf reviewed. Toney Narayan MD Apr 14, 2018 12:19
[2018-04-14] MEDS ORDERED: Morphine Sulfate 2mg/ml Inj(IV/IM USE ONLY) IVP PRN (12:30)
[2018-04-14] MEDS ORDERED: HydrALAZINE 50mg tab ORAL SCH (14:00)
--- NOTE | 2018-04-14 14:15 | History and Physical Report ---
DATE OF ADMISSION: 04/13/2018 APPROXIMATE TIME: 11 a.m. CONSULTANTS: 1. 2. Toney Narayan M.D. 3. Gil Floyd M.D. 4. Kip Miller M.D. CHIEF COMPLAINT: Dark brown urine, urinary tract infection, sepsis. BRIEF HISTORY: This is an 87-year-old male from [facility], presents with dark brown urine x2 days, sent to [place] and found to have UTI, sepsis, weakness, and confusion, and admitted to telemetry for further care. Currently, calm in bed, slightly confused. No complaint, otherwise. REVIEW OF SYSTEMS: No chest pain. No nausea, vomiting, or diarrhea. PAST MEDICAL HISTORY: Include hypertension, atrial fibrillation, DVT, BPH, CHF, and hypothyroid. PAST SURGICAL HISTORY: Unknown. MEDICATIONS: Include cefepime, benazepril, vancomycin, potassium, lorazepam, heparin, albuterol, morphine, and Zofran. ALLERGIES: Denies. SOCIAL HISTORY: No smoking. No alcohol. No intravenous drug abuse. FAMILY HISTORY: Noncontributory. PHYSICAL EXAMINATION: GENERAL: Calm in bed, oriented x2, in no acute distress. VITAL SIGNS: Temperature 97, pulse 63, respirations 18, and blood pressure 129/74. CARDIOVASCULAR: No murmur. LUNGS: Distant and clear. ABDOMEN: Bowel sounds positive. Nontender. Nondistended. EXTREMITIES: No cyanosis, clubbing, or edema. NEUROLOGIC: The patient moves all extremities, slightly weak. LABORATORY DATA: White count 13, hemoglobin and hematocrit 13/39, platelets 214. BMP shows potassium 3.1, BUN/creatinine 39/1.9. Otherwise, albumin 2.7. Urinalysis show nitrite positive, 3+ blood, 3+ leukocyte esterase. ASSESSMENT: 1. UTI. 2. Sepsis. 3. Renal insufficiency. 4. Weakness. 5. Confusion. 6. Hypertension. 7. Atrial fibrillation. 8. DVT. 9. CHF. 10. Hypothyroid. 11. Malnutrition. PLAN: 1. Continue previous medications. 2. OT, PT, dietary followup. 3. Blood pressure and pain control. 4. Antibiotics per Infectious Disease. 5. Dr. Narayan, Dr. Floyd, Dr. Rodriguez, and Dr. Kramer to followup. 6. CBC and BMP in the morning. Ricardo Ruiz D.O. DR: CINTHYA JOB#: [id number] CC:
--- NOTE | 2018-04-14 15:00 | Consultation ---
Consult Note Consult Note asked to eval for high Cr Patient presents with reports of increased shortness of breath Questionable fall Was also noted the patient had some increased confusion and foul-smelling urine Patient himself has some mild underlying dementia At this time denies any chest pain he has shortness of breath with laying flat Denies any vomiting or diarrhea Denies any back or flank pain Past Medical History: No History, Except For Hx Cardiac Problems: Yes - anemia, heart failure , cellulitis Hx Hypertension: Yes Hx COPD: Yes - VENOUS THROMBOSIS Hx Dialysis: No - urinary obstruction, BPH, ckd Hx Neurological Problems: Yes Hx Cerebrovascular Accident: Yes Hx Dementia: Yes Hx Alzheimer's Disease: Yes interviewed examined data reviewed Assessment/Plan . Chronic kidney disease, most likely due to HTN Superimposed Dehydration- On Diuretics . UTI / Sepsis . Malnutrition with low albumin. . h/o Right lower extremity cellulitis. . h/o Right lower extremity deep venous thrombosis. . Hypertension, . History of hypothyroidism. . History of atrial fibrillation. Stop Zaroxylin 2D Echo Kidney WERO monitor renal parameters Avoid Nephrotoxics adjust BP meds- One Albumin Bolus Ravi Kramer MD Apr 14, 2018 15:00
--- NOTE | 2018-04-14 15:00 | Consultation ---
DATE OF CONSULTATION: 04/14/2018 CONSULTING PHYSICIAN: Kip Miller M.D. HISTORY OF PRESENT ILLNESS: The patient is an 87-year-old male patient, who was admitted to the hospital at [facility] and there was a psychiatric consultation requested, but this patient has developed altered mental status. The reason why he came in is for generalized weakness and hypertension, but this caused him to have altered mental status and could decline in cognition below his baseline. That is why, his attending physician has requested daily psychiatric consultation. So this is an initial psychiatric consultation for this 87-year-old male patient. Anyway, I saw and assessed the patient at bedside today. He seems to be confused, has very poor insight into his psychiatric history or his medical history for that matter. He does have some confusion, disorganized thought process, and mood lability. Cognition has declined below his baseline. SOCIAL HISTORY: This patient is currently living in a correction by the name [facility]. He is financially supported by [employer] and Medicare. MEDICAL HISTORY: He has a history of hypertension, dyspnea, congestive heart failure, hypothyroidism, dehydration, urinary tract infection, atrial fibrillation, status post DVT, coronary artery disease, bradycardia, and cellulitis. ALLERGIES: No known drug allergies. PSYCHIATRIC HISTORY: Major depressive disorder, mild, recurrent with psychotic features, rule out pseudodementia . FAMILY PSYCHIATRIC HISTORY: Denies. SUBSTANCE ABUSE HISTORY: Denies. PAIN ASSESSMENT: A 3/10 pain. STRENGTH: He is moderately better. He has a place to live. WEAKNESSES: Impulsive and poor family support system. MENTAL STATUS EXAMINATION: This is an 87-year-old male. Appearance is disheveled. Attitude irritable and agitated. Affect guarded and restricted. Intellect poor. Mood depressed and anxious. Motor activity, psychomotor agitation. Attention span is poor. Orientation x2. Speech is pressured. Thought process, disorganized and illogical. Thought content, slight paranoia. His insight and judgment is poor. Short-term memory, 2/3 after 3 word recall, so poor short-term memory. Long-term memory is poor. He is unable to recall long-term events in his life such as high school that he went to. DIAGNOSIS: Major depressive disorder, mild, recurrent with psychotic features, rule out pseudodementia, rule out dementia with psychosis. PLAN: My plan for this patient is I am going to start this patient on a psychiatric medication regimen of Aricept 10 mg at bedtime to prevent any further decline in his cognition. In addition to that, I am going to start him on Ativan 0.5 mg q.6 hours p.r.n. anxiety and agitation and provide 20 minutes of insight-oriented psychotherapy to get on helping this patient understand his psychiatric and cognitive condition to help him have more impulse control and better behavior on the unit and improve his mood overall. Chart reviewed. Discussed with staff. The patient is seen and assessed at bedside. A 20 minutes of insight-oriented psychotherapy provided. I would like to thank, Dr. Ricardo Ruiz, for this interesting consultation. Kip Miller M.D. DR: DONNY JOB#: [id number] CC:
[2018-04-14] MEDS: Xarelto 15mg tab ORAL SCH (15:57)
[2018-04-14 16:00] VITALS: BP 134/71
[2018-04-14] MEDS: Docusate 100mg cap ORAL SCH (18:39)
[2018-04-14 20:00] VITALS: BP 124/61
[2018-04-14] MEDS ORDERED: Vancomycin 750mg/NS 250ml IVPB SCH (20:00)
[2018-04-14] MEDS: Tamsulosin 0.4mg cap ORAL SCH (20:20)
[2018-04-14] MEDS: Donepezil 10mg tab ORAL SCH (20:20)
[2018-04-14] MEDS: HydrALAZINE 25mg tab ORAL SCH (21:49)
[2018-04-14] MEDS ORDERED: Cefepime HCl 1 GM in D5W 110 ML IVPB SCH (22:00)
[2018-04-15] VITALS: BP 132/64
[2018-04-15 04:00] VITALS: BP 134/77
[2018-04-15] MEDS: HydrALAZINE 25mg tab ORAL SCH ×4 (06:04→13:53)
[2018-04-15 06:17] LABS: BASOPHILS % (AUTO) 0.6 % (0.0-2.0); EOSINOPHILS % (AUTO) 4.1 % (0.0-3.0); HEMATOCRIT 35.6 % (42.0-52.0); HEMOGLOBIN 11.9 G/DL (14.2-18.0); LYMPHOCYTES % (AUTO) 8.8 % (20.0-45.0); MEAN CORPUSCULAR VOLUME 91 FL (80-99); MONOCYTES % (AUTO) 5.3 % (1.0-10.0); NEUTROPHILS % (AUTO) 81.2 % (45.0-75.0); PLATELET COUNT 193 K/UL (150-450); RED BLOOD COUNT 3.91 M/UL (4.70-6.10); RED CELL DISTRIBUTION WIDTH 11.3 % (11.6-14.8); WHITE BLOOD COUNT 11.3 K/UL (4.8-10.8)
[2018-04-15 07:13] LABS: ALANINE AMINOTRANSFERASE 29 U/L (12-78); ALBUMIN 2.7 G/DL (3.4-5.0); ALBUMIN/GLOBULIN RATIO 0.6 (1.0-2.7); ALKALINE PHOSPHATASE 53 U/L (46-116); ANION GAP 8 mmol/L (5-15); ASPARTATE AMINO TRANSFERASE 35 U/L (15-37); BILIRUBIN,TOTAL 0.5 MG/DL (0.2-1.0); CALCIUM 9.1 MG/DL (8.5-10.1); CARBON DIOXIDE 28 MMOL/L (21-32); CHLORIDE 103 MMOL/L (98-107); CHOLESTEROL 114 MG/DL (< 200); CREATINE KINASE 146 U/L (26-308); CREATININE 1.8 MG/DL (0.55-1.30); FERRITIN 476 NG/ML (8-388); GAMMA GLUTAMYL TRANSPEPTIDASE 9 U/L (5-85); HDL CHOLESTEROL 35 MG/DL (40-60); PHOSPHORUS 3.2 MG/DL (2.5-4.9); POTASSIUM 3.5 MMOL/L (3.5-5.1); SODIUM 139 MMOL/L (136-145); TRIGLYCERIDES 60 MG/DL (30-150)
[2018-04-15 07:22] LABS: BLOOD UREA NITROGEN 36 mg/dL (7-18)
--- NOTE | 2018-04-15 07:23 | Infectious Diseases Prog Note ---
Assessment/Plan Assessment/Plan 87 yo male with PMHx of dementia, CAD, CKD and DVT presented from [facility] due to altered level of consciousness and found to have sepsis. # Sepsis - Likley secondary to UTI but cultures still pending, Afebrile on antibiotics - Urine Cx 04/13/18 - E.coli [place] - Blood 04/13/18 - NGTD #Leukocytosis likely secondary to above #Right buttock and testicular wounds - Not likely to currently infected - Monitor #Hx of right leg cellulitis #Hx of ESBL UTI #DVT #BPH #HTN #Hypothyroid #CAD s/p NM #Dementia #A.fib #CKD #CHF #COPD #Schizophrenia PLAN: - Start Augmenting PO 875 BID for 7 days to complete a 10 day course - 04/15 SP cefepime #11/13 an vancomycin #11/13pending cultures - f/u Urine and blood cultures - Wound care - Monitor WBCs and Temps - Supportive care Thank you for consulting us for the care of this patient. We will continue to follow with you. Subjective Allergies: Coded Allergies: No Known Allergies (Verified , 01/31/08) Subjective Patient Agitated this morning No N/V/D or fever Objective Vital Signs Last 24 Hour Vital Signs Date Time Temp Pulse Resp B/P (MAP) Pulse Ox O2 Delivery O2 Flow Rate FiO2 04/15/18 06:04 111/61 04/15/18 04:00 98.6 63 18 134/77 (96) 94 98.6 04/15/18 04:00 49 04/15/18 00:00 98.0 61 18 132/64 (86) 96 98.0 04/14/18 23:56 61 04/14/18 21:49 127/57 04/14/18 21:00 Room Air 04/14/18 20:00 98.2 64 18 124/61 (82) 95 98.2 04/14/18 19:23 65 04/14/18 19:00 58 20 Room Air 21 04/14/18 16:00 59 04/14/18 16:00 97.0 97 20 134/71 (92) 98 97.0 04/14/18 14:00 110/59 04/14/18 12:00 65 04/14/18 11:54 97.0 97 20 116/59 (78) 97 97.0 04/14/18 09:44 Room Air 04/14/18 08:35 74 16 Room Air 04/14/18 08:00 54 04/14/18 08:00 97.7 63 18 129/74 (92) 97 97.7 Height (Feet): 5 Height (Inches): 8.00 Weight (Pounds): 168 Objective Gen: NAD, A/O x 1 HEENT: NCAT, MMM, EOMI, LUNGS: CTAB, No W/C CARDS: RRR, S1, S2, No M/R/G, ABD: Soft, NT, ND, + BS Ext: C/C/E, Pulses 2+ B/L (DP, Rad): NEURO: Strength and Sensation Grossly intact Microbiology Date/Time Source Procedure Growth Status 04/13/18 15:30 Blood Blood Culture - Preliminary NO GROWTH AFTER 24 HOURS Resulted 04/13/18 15:10 Blood Blood Culture - Preliminary NO GROWTH AFTER 24 HOURS Resulted 04/13/18 16:18 Urine,Clean Catch Urine Culture - Preliminary Gram Negative Bacillus 1 Resulted 04/13/18 19:00 Buttock Left Gram Stain - Final Resulted 04/13/18 19:00 Buttock Left Wound Culture Pending Resulted Laboratory Tests Test 04/15/18 05:00 White Blood Count 11.3 K/UL (4.8-10.8) H Red Blood Count 3.91 M/UL (4.70-6.10) L Hemoglobin 11.9 G/DL (14.2-18.0) L Hematocrit 35.6 % (42.0-52.0) L Mean Corpuscular Volume 91 FL (80-99) Mean Corpuscular Hemoglobin 30.4 PG (27.0-31.0) Mean Corpuscular Hemoglobin Concent 33.4 G/DL (32.0-36.0) Red Cell Distribution Width 11.3 % (11.6-14.8) L Platelet Count 193 K/UL (150-450) Mean Platelet Volume 8.5 FL (6.5-10.1) Neutrophils (%) (Auto) 81.2 % (45.0-75.0) H Lymphocytes (%) (Auto) 8.8 % (20.0-45.0) L Monocytes (%) (Auto) 5.3 % (1.0-10.0) Eosinophils (%) (Auto) 4.1 % (0.0-3.0) H Basophils (%) (Auto) 0.6 % (0.0-2.0) Sodium Level Pending Potassium Level Pending Chloride Level Pending Carbon Dioxide Level Pending Blood Urea Nitrogen Pending Creatinine Pending Estimat Glomerular Filtration Rate Pending Glucose Level Pending Hemoglobin A1c 6.2 % (4.3-6.0) H Uric Acid Pending Calcium Level Pending Phosphorus Level Pending Magnesium Level Pending Ferritin Pending Total Bilirubin Pending Gamma Glutamyl Transpeptidase Pending Aspartate Amino Transf (AST/SGOT) Pending Alanine Aminotransferase (ALT/SGPT) Pending Alkaline Phosphatase Pending Total Creatine Kinase Pending Pro-B-Type Natriuretic Peptide Pending Total Protein Pending Albumin Pending Globulin Pending Triglycerides Level Pending Cholesterol Level Pending LDL Cholesterol Pending HDL Cholesterol Pending Cholesterol/HDL Ratio Pending Vitamin B12 Level Pending Folate Pending Thyroid Stimulating Hormone (TSH) Pending Current Medications Medications (Trade) Dose Ordered Sig/Brissa Route PRN Reason Start Time Stop Time Status Last Admin Dose Admin Acetaminophen (Tylenol) 650 mg Q4H PRN ORAL fever 04/13/18 19:00 05/13/18 18:59 Acetaminophen/ Hydrocodone Bitart ([place] 10/325) 1 tab Q4H PRN ORAL Moderate Pain (Pain Scale 4-6) 04/14/18 12:00 04/21/18 11:59 04/14/18 22:27 Albuterol/ Ipratropium (Albuterol/ Ipratropium) 3 ml Q4H PRN HHN Shortness of Breath 04/13/18 19:00 04/18/18 18:59 Amiodarone HCl (Cordarone) 200 mg DAILY ORAL 04/15/18 09:00 05/15/18 08:59 Cefepime HCl 1 gm/ Dextrose 110 ml @ 220 mls/hr Q24H IVPB 04/14/18 22:00 04/21/18 21:59 04/14/18 22:31 Digoxin (Lanoxin) 0.125 mg DAILY ORAL 04/15/18 09:00 05/15/18 08:59 Docusate Sodium (Colace) 100 mg TWICE A DAY ORAL 04/14/18 18:00 05/14/18 17:59 04/14/18 18:39 Donepezil HCl (Aricept) 10 mg QHS ORAL 04/14/18 21:00 05/14/18 20:59 04/14/18 20:20 Finasteride (Proscar) 5 mg DAILY ORAL 04/15/18 09:00 05/15/18 08:59 Hydralazine HCl (Apresoline) 25 mg Q8HR ORAL 04/14/18 22:00 05/14/18 13:59 04/15/18 06:04 Levothyroxine Sodium (Synthroid) 50 mcg ACBREAKFAST ORAL 04/15/18 06:30 05/15/18 06:29 04/15/18 06:02 Lorazepam (Ativan) 0.5 mg Q6H PRN ORAL For Anxiety 04/14/18 04:15 04/21/18 04:14 Morphine Sulfate (Morphine Sulfate) 2 mg Q4H PRN IVP Severe Pain (Pain Scale 7-10) 04/14/18 12:30 04/20/18 18:59 Ondansetron HCl (Zofran) 4 mg Q6H PRN IVP Nausea & Vomiting 04/13/18 19:00 05/13/18 18:59 Pantoprazole (Protonix) 40 mg DAILY ORAL 04/14/18 15:15 05/14/18 15:14 04/14/18 15:57 Polyethylene Glycol (Miralax) 17 gm DAILYPRN PRN ORAL Constipation 04/13/18 19:00 05/13/18 18:59 Rivaroxaban (Xarelto) 15 mg QPM ORAL 04/14/18 16:30 05/14/18 16:29 04/14/18 15:57 Tamsulosin HCl (Flomax) 0.4 mg QHS ORAL 04/14/18 21:00 05/14/18 20:59 04/14/18 20:20 Temazepam (Restoril) 15 mg HSPRN PRN ORAL Insomnia 04/13/18 19:00 04/20/18 18:59 04/13/18 20:35 Vancomycin HCl (Vanco rx to dose) 1 ea DAILY PRN MISC per rx protocol 04/13/18 19:15 05/13/18 19:14 Vancomycin/Sodium Chloride 250 ml @ 166.667 mls/hr Q24H IVPB 04/14/18 20:00 04/19/18 19:59 04/14/18 20:04 Kash Ribeiro M.D. Apr 15, 2018 07:23
[2018-04-15] MEDS: Docusate 100mg cap ORAL SCH ×2 (08:04→17:04)
[2018-04-15] MEDS: Amiodarone 200mg tab ORAL SCH (08:04)
[2018-04-15] MEDS: Digoxin 0.125mg tab ORAL SCH (08:04)
[2018-04-15 08:51] VITALS: BP 122/55
[2018-04-15] MEDS ORDERED: metOLazone 2.5 MG TAB ORAL SCH (09:00)
[2018-04-15] MEDS ORDERED: Donepezil 10mg tab ORAL SCH (09:00)
--- NOTE | 2018-04-15 11:26 | Pulmonology Progress Note ---
Assessment/Plan Problems: (1) COPD with acute exacerbation (2) A-fib (3) HTN (hypertension) (4) CAD (coronary artery disease) (5) BPH (benign prostatic hyperplasia) (6) Dementia Assessment/Plan improving respiratory treatment titrate fio2 to sat of 92% check sputum monitor heart rate f/u electrolytes avoid nephrotoxic agents. pt/ot Subjective ROS Limited/Unobtainable: No Constitutional: Reports: no symptoms HEENT: Repors: no symptoms Respiratory: Reports: no symptoms Allergies: Coded Allergies: No Known Allergies (Verified , 01/31/08) Objective Last 24 Hour Vital Signs Date Time Temp Pulse Resp B/P (MAP) Pulse Ox O2 Delivery O2 Flow Rate FiO2 04/15/18 08:51 97.0 62 18 122/55 (77) 94 97.0 04/15/18 08:46 Room Air 04/15/18 08:04 55 04/15/18 07:42 58 04/15/18 07:15 60 17 Room Air 21 04/15/18 06:04 111/61 04/15/18 04:00 98.6 63 18 134/77 (96) 94 98.6 04/15/18 04:00 49 04/15/18 00:00 98.0 61 18 132/64 (86) 96 98.0 04/14/18 23:56 61 04/14/18 21:49 127/57 04/14/18 21:00 Room Air 04/14/18 20:00 98.2 64 18 124/61 (82) 95 98.2 04/14/18 19:23 65 04/14/18 19:00 58 20 Room Air 21 04/14/18 16:00 59 04/14/18 16:00 97.0 97 20 134/71 (92) 98 97.0 04/14/18 14:00 110/59 04/14/18 12:00 65 04/14/18 11:54 97.0 97 20 116/59 (78) 97 97.0 General Appearance: WD/WN HEENT: normocephalic, atraumatic Respiratory/Chest: chest wall non-tender, lungs clear Cardiovascular: normal peripheral pulses, normal rate Abdomen: normal bowel sounds, soft, non tender Genitourinary: normal external genitalia Extremities: no clubbing Microbiology Date/Time Source Procedure Growth Status 04/13/18 15:30 Blood Blood Culture - Preliminary NO GROWTH AFTER 24 HOURS Resulted 04/13/18 15:10 Blood Blood Culture - Preliminary NO GROWTH AFTER 24 HOURS Resulted 04/13/18 15:30 Nasal Nares MRSA Culture - Final NO METHICILLIN RESISTANT STAPH AUREUS... Complete 04/13/18 16:18 Urine,Clean Catch Urine Culture - Final Escherichia Coli Complete 04/13/18 19:00 Buttock Left Gram Stain - Final Resulted 04/13/18 19:00 Wound Culture - Preliminary Gram Negative Bacillus 1 Resulted 04/13/18 15:30 Rectum VRE Culture - Final NO VANCOMYCIN RESISTANT ENTEROCOCCUS ... Complete Laboratory Tests 04/15/18 05:00: White Blood Count 11.3H, Red Blood Count 3.91L, Hemoglobin 11.9L, Hematocrit 35.6L, Mean Corpuscular Volume 91, Mean Corpuscular Hemoglobin 30.4, Mean Corpuscular Hemoglobin Concent 33.4, Red Cell Distribution Width 11.3L, Platelet Count 193, Mean Platelet Volume 8.5, Neutrophils (%) (Auto) 81.2H, Lymphocytes (%) (Auto) 8.8L, Monocytes (%) (Auto) 5.3, Eosinophils (%) (Auto) 4.1H, Basophils (%) (Auto) 0.6, Sodium Level 139, Potassium Level 3.5, Chloride Level 103, Carbon Dioxide Level 28, Anion Gap 8, Blood Urea Nitrogen 36H, Creatinine 1.8H, Estimat Glomerular Filtration Rate , Glucose Level 96, Hemoglobin A1c 6.2H, Uric Acid 6.2, Calcium Level 9.1, Phosphorus Level 3.2, Magnesium Level 1.9, Ferritin 476H, Total Bilirubin 0.5, Gamma Glutamyl Transpeptidase 9, Aspartate Amino Transf (AST/SGOT) 35, Alanine Aminotransferase (ALT/SGPT) 29, Alkaline Phosphatase 53, Total Creatine Kinase 146, Pro-B-Type Natriuretic Peptide 680H, Total Protein 6.9, Albumin 2.7L, Globulin 4.2, Albumin/Globulin Ratio 0.6L, Triglycerides Level 60, Cholesterol Level 114, LDL Cholesterol 74, HDL Cholesterol 35L, Cholesterol/HDL Ratio 3.3, Vitamin B12 Level 565, Folate 11.1, Thyroid Stimulating Hormone (TSH) 3.068 Current Medications Medications (Trade) Dose Ordered Sig/Brissa Route PRN Reason Start Time Stop Time Status Last Admin Dose Admin Acetaminophen (Tylenol) 650 mg Q4H PRN ORAL fever 04/13/18 19:00 05/13/18 18:59 Acetaminophen/ Hydrocodone Bitart ([place] 10/325) 1 tab Q4H PRN ORAL Moderate Pain (Pain Scale 4-6) 04/14/18 12:00 04/21/18 11:59 04/14/18 22:27 Albuterol/ Ipratropium (Albuterol/ Ipratropium) 3 ml Q4H PRN HHN Shortness of Breath 04/13/18 19:00 04/18/18 18:59 Amiodarone HCl (Cordarone) 200 mg DAILY ORAL 04/15/18 09:00 05/15/18 08:59 04/15/18 08:04 Amoxicillin/ Clavulanate Potassium (Augmentin) 875 mg EVERY 12 HOURS ORAL 04/15/18 11:30 04/21/18 11:29 Digoxin (Lanoxin) 0.125 mg DAILY ORAL 04/15/18 09:00 05/15/18 08:59 Docusate Sodium (Colace) 100 mg TWICE A DAY ORAL 04/14/18 18:00 05/14/18 17:59 04/15/18 08:04 Donepezil HCl (Aricept) 10 mg QHS ORAL 04/14/18 21:00 05/14/18 20:59 04/14/18 20:20 Finasteride (Proscar) 5 mg DAILY ORAL 04/15/18 09:00 05/15/18 08:59 04/15/18 08:04 Hydralazine HCl (Apresoline) 25 mg Q8HR ORAL 04/14/18 22:00 05/14/18 13:59 04/15/18 06:04 Levothyroxine Sodium (Synthroid) 50 mcg ACBREAKFAST ORAL 04/15/18 06:30 05/15/18 06:29 04/15/18 06:02 Lorazepam (Ativan) 0.5 mg Q6H PRN ORAL For Anxiety 04/14/18 04:15 04/21/18 04:14 Morphine Sulfate (Morphine Sulfate) 2 mg Q4H PRN IVP Severe Pain (Pain Scale 7-10) 04/14/18 12:30 04/20/18 18:59 Ondansetron HCl (Zofran) 4 mg Q6H PRN IVP Nausea & Vomiting 04/13/18 19:00 05/13/18 18:59 Pantoprazole (Protonix) 40 mg DAILY ORAL 04/14/18 15:15 05/14/18 15:14 04/15/18 08:04 Polyethylene Glycol (Miralax) 17 gm DAILYPRN PRN ORAL Constipation 04/13/18 19:00 05/13/18 18:59 Rivaroxaban (Xarelto) 15 mg QPM ORAL 04/14/18 16:30 05/14/18 16:29 04/14/18 15:57 Tamsulosin HCl (Flomax) 0.4 mg QHS ORAL 04/14/18 21:00 05/14/18 20:59 04/14/18 20:20 Temazepam (Restoril) 15 mg HSPRN PRN ORAL Insomnia 04/13/18 19:00 04/20/18 18:59 04/13/18 20:35 Toney Narayan MD Apr 15, 2018 11:26
[2018-04-15] MEDS: Augmentin 875mg Tab ORAL SCH ×2 (11:40→20:43)
[2018-04-15 12:56] VITALS: BP 135/74
--- NOTE | 2018-04-15 13:39 | Nephrology Progress Note ---
Assessment/Plan Problem List: (1) Acute on chronic renal failure (2) Functional quadriplegia (3) BPH (benign prostatic hyperplasia) (4) A-fib (5) Hypoalbuminemia due to protein-calorie malnutrition Assessment . Chronic kidney disease, most likely due to HTN Superimposed Dehydration- On Diuretics . UTI / Sepsis . Malnutrition with low albumin. . h/o Right lower extremity cellulitis. . h/o Right lower extremity deep venous thrombosis. . Hypertension, . History of hypothyroidism. . History of atrial fibrillation. . Chronic kidney disease, most likely due to HTN Superimposed Dehydration- On Diuretics . UTI / Sepsis . Malnutrition with low albumin. . h/o Right lower extremity cellulitis. . h/o Right lower extremity deep venous thrombosis. . Hypertension, . History of hypothyroidism. . History of atrial fibrillation. Plan Stop Zaroxylin 2D Echo Kidney WERO Pending monitor renal parameters Avoid Nephrotoxics adjust BP meds- Subjective ROS Limited/Unobtainable: No Constitutional: Reports: malaise Objective Objective Last 24 Hour Vital Signs Date Time Temp Pulse Resp B/P (MAP) Pulse Ox O2 Delivery O2 Flow Rate FiO2 04/15/18 13:20 135/74 04/15/18 12:56 97.0 67 18 135/74 (94) 97 97.0 04/15/18 11:28 55 04/15/18 08:51 97.0 62 18 122/55 (77) 94 97.0 04/15/18 08:46 Room Air 04/15/18 08:04 55 04/15/18 07:42 58 04/15/18 07:15 60 17 Room Air 04/15/18 06:04 111/61 04/15/18 04:00 98.6 63 18 134/77 (96) 94 98.6 04/15/18 04:00 49 04/15/18 00:00 98.0 61 18 132/64 (86) 96 98.0 04/14/18 23:56 61 04/14/18 21:49 127/57 04/14/18 21:00 Room Air 04/14/18 20:00 98.2 64 18 124/61 (82) 95 98.2 04/14/18 19:23 65 04/14/18 19:00 58 20 Room Air 21 04/14/18 16:00 59 04/14/18 16:00 97.0 97 20 134/71 (92) 98 97.0 04/14/18 14:00 110/59 Laboratory Tests 04/15/18 05:00: White Blood Count 11.3H, Red Blood Count 3.91L, Hemoglobin 11.9L, Hematocrit 35.6L, Mean Corpuscular Volume 91, Mean Corpuscular Hemoglobin 30.4, Mean Corpuscular Hemoglobin Concent 33.4, Red Cell Distribution Width 11.3L, Platelet Count 193, Mean Platelet Volume 8.5, Neutrophils (%) (Auto) 81.2H, Lymphocytes (%) (Auto) 8.8L, Monocytes (%) (Auto) 5.3, Eosinophils (%) (Auto) 4.1H, Basophils (%) (Auto) 0.6, Sodium Level 139, Potassium Level 3.5, Chloride Level 103, Carbon Dioxide Level 28, Anion Gap 8, Blood Urea Nitrogen 36H, Creatinine 1.8H, Estimat Glomerular Filtration Rate , Glucose Level 96, Hemoglobin A1c 6.2H, Uric Acid 6.2, Calcium Level 9.1, Phosphorus Level 3.2, Magnesium Level 1.9, Ferritin 476H, Total Bilirubin 0.5, Gamma Glutamyl Transpeptidase 9, Aspartate Amino Transf (AST/SGOT) 35, Alanine Aminotransferase (ALT/SGPT) 29, Alkaline Phosphatase 53, Total Creatine Kinase 146, Pro-B-Type Natriuretic Peptide 680H, Total Protein 6.9, Albumin 2.7L, Globulin 4.2, Albumin/Globulin Ratio 0.6L, Triglycerides Level 60, Cholesterol Level 114, LDL Cholesterol 74, HDL Cholesterol 35L, Cholesterol/HDL Ratio 3.3, Vitamin B12 Level 565, Folate 11.1, Thyroid Stimulating Hormone (TSH) 3.068 Height (Feet): 5 Height (Inches): 8.00 Weight (Pounds): 168 General Appearance: no apparent distress, lethargic Cardiovascular: arrhythmia Respiratory/Chest: other - poor inspiratory effort Abdomen: soft Extremities: other - chronic LE skin changes Neurologic: other - weak non ambulatory Objective no change Ravi Kramer MD Apr 15, 2018 13:39
--- NOTE | 2018-04-15 14:43 | General Progress Note ---
Assessment/Plan Problem List: (1) Hypothyroid ICD Codes: E03.9 - Hypothyroidism, unspecified SNOMED: 06962705 (2) Dehydration ICD Codes: E86.0 - Dehydration SNOMED: 26018067 (3) UTI (urinary tract infection) ICD Codes: N39.0 - Urinary tract infection, site not specified SNOMED: 51614568 (4) Sepsis ICD Codes: A41.9 - Sepsis, unspecified organism SNOMED: 03428889 (5) Dementia ICD Codes: F03.90 - Dementia SNOMED: 39266793 (6) CHF (congestive heart failure) ICD Codes: I50.9 - Heart failure, unspecified SNOMED: 89740352 (7) A-fib ICD Codes: I48.91 - Unspecified atrial fibrillation SNOMED: 20995607 (8) HTN (hypertension) ICD Codes: I10 - Essential (primary) hypertension SNOMED: 30740671 (9) BPH (benign prostatic hyperplasia) ICD Codes: N40.0 - Enlarged prostate without lower urinary tract symptoms SNOMED: 727973385, 850504578 Status: unchanged Assessment/Plan ot pt diet abx cbc bmp am Subjective Constitutional: Reports: weakness Allergies: Coded Allergies: No Known Allergies (Verified , 01/31/08) All Systems: reviewed and negative except above Subjective sleepy calm in bed Objective Last 24 Hour Vital Signs Date Time Temp Pulse Resp B/P (MAP) Pulse Ox O2 Delivery O2 Flow Rate FiO2 04/15/18 13:53 135/74 04/15/18 13:20 135/74 04/15/18 12:56 97.0 67 18 135/74 (94) 97 97.0 04/15/18 11:28 55 04/15/18 08:51 97.0 62 18 122/55 (77) 94 97.0 04/15/18 08:46 Room Air 04/15/18 08:04 55 04/15/18 07:42 58 04/15/18 07:15 60 17 Room Air 21 04/15/18 06:04 111/61 04/15/18 04:00 98.6 63 18 134/77 (96) 94 98.6 04/15/18 04:00 49 04/15/18 00:00 98.0 61 18 132/64 (86) 96 98.0 8/6/18 23:56 61 04/14/18 21:49 127/57 04/14/18 21:00 Room Air 04/14/18 20:00 98.2 64 18 124/61 (82) 95 98.2 04/14/18 19:23 65 04/14/18 19:00 58 20 Room Air 21 04/14/18 16:00 59 04/14/18 16:00 97.0 97 20 134/71 (92) 98 97.0 Laboratory Tests 04/15/18 05:00: White Blood Count 11.3H, Red Blood Count 3.91L, Hemoglobin 11.9L, Hematocrit 35.6L, Mean Corpuscular Volume 91, Mean Corpuscular Hemoglobin 30.4, Mean Corpuscular Hemoglobin Concent 33.4, Red Cell Distribution Width 11.3L, Platelet Count 193, Mean Platelet Volume 8.5, Neutrophils (%) (Auto) 81.2H, Lymphocytes (%) (Auto) 8.8L, Monocytes (%) (Auto) 5.3, Eosinophils (%) (Auto) 4.1H, Basophils (%) (Auto) 0.6, Sodium Level 139, Potassium Level 3.5, Chloride Level 103, Carbon Dioxide Level 28, Anion Gap 8, Blood Urea Nitrogen 36H, Creatinine 1.8H, Estimat Glomerular Filtration Rate , Glucose Level 96, Hemoglobin A1c 6.2H, Uric Acid 6.2, Calcium Level 9.1, Phosphorus Level 3.2, Magnesium Level 1.9, Ferritin 476H, Total Bilirubin 0.5, Gamma Glutamyl Transpeptidase 9, Aspartate Amino Transf (AST/SGOT) 35, Alanine Aminotransferase (ALT/SGPT) 29, Alkaline Phosphatase 53, Total Creatine Kinase 146, Pro-B-Type Natriuretic Peptide 680H, Total Protein 6.9, Albumin 2.7L, Globulin 4.2, Albumin/Globulin Ratio 0.6L, Triglycerides Level 60, Cholesterol Level 114, LDL Cholesterol 74, HDL Cholesterol 35L, Cholesterol/HDL Ratio 3.3, Vitamin B12 Level 565, Folate 11.1, Thyroid Stimulating Hormone (TSH) 3.068 Height (Feet): 5 Height (Inches): 8.00 Weight (Pounds): 168 General Appearance: lethargic EENT: normal ENT inspection Neck: normal alignment Cardiovascular: normal peripheral pulses, normal rate, regular rhythm Respiratory/Chest: chest wall non-tender, lungs clear, normal breath sounds Abdomen: normal bowel sounds, non tender, soft Extremities: normal inspection Edema: no edema noted Arm (L), no edema noted Arm (R), no edema noted Leg (L), no edema noted Leg (R), no edema noted Pedal (L), no edema noted Pedal (R), no edema noted Generalized Neurologic: motor weakness Skin: normal pigmentation, warm/dry Ricardo Ruiz Apr 15, 2018 14:43
[2018-04-15 16:26] VITALS: BP 128/62
[2018-04-15] MEDS: Xarelto 15mg tab ORAL SCH (17:04)
[2018-04-15 20:00] VITALS: BP 128/67
[2018-04-15] MEDS: Tamsulosin 0.4mg cap ORAL SCH (20:43)
[2018-04-15] MEDS: Donepezil 10mg tab ORAL SCH (20:43)
[2018-04-15] MEDS ORDERED: Augmentin 875mg Tab ORAL SCH (21:00)
--- NOTE | 2018-04-15 21:16 | Progress Note ---
DATE: 04/15/2018 SUBJECTIVE: This is an 87-year-old male patient, seen in the hospital secondary to hypertension and generalized weakness. He does have some confusion, disorganized thought process, and altered mental status. He also has diagnosis of confusion, and altered mental status. His cognition has declined below his baseline secondary to the progression of his medical illness. That is why his attending has requested daily psychiatric consultation. MENTAL STATUS EXAMINATION: An 87-year-old male. Appearance is disheveled. Attitude, irritable and agitated. Affect, guarded and restricted. Intellect poor. Mood, depressed and anxious. Motor activity, psychomotor agitation. Attention span is poor. Orientation x2. Speech is low volume and slurred. Thought process, disorganized and illogical. Thought content, paranoid delusions and auditory hallucinations. Insight and judgment is poor. DIAGNOSIS: Major depression with psychotic features, rule out pseudodementia. PLAN: Treat him with Aricept 10 mg at bedtime, Ativan 0.5 mg every 6 hours p.r.n. anxiety and agitation, and provide 20 minutes of cognitive behavioral therapy. We will go over the patient's automatic negative thoughts and help to convert them to more positive thoughts to reduce depression and suicidality suicidal or homicidal ideations at this time. Chart reviewed. Discussed with staff. Seen and assessed in his room. Kip Miller M.D. DR: MOLLY JOB#: [id number] CC:
[2018-04-16] VITALS: BP 131/61
[2018-04-16 04:00] VITALS: BP 130/70
[2018-04-16] MEDS: HydrALAZINE 25mg tab ORAL SCH ×3 (05:36→21:59)
--- NOTE | 2018-04-16 07:30 | Progress Note ---
DATE: 04/16/2018 SUBJECTIVE: This is an 87-year-old male, still has altered mental status. Reason for admission is weakness and hypertension, but he has altered mental status and confusion, and agitation, worsened by stress of his medical illness. That is why, his attending physician has requested daily psychiatric consultation for this patient. He has weakness and hypertension. MENTAL STATUS EXAMINATION: This is an 87-year-old male. Appearance is disheveled. Attitude, irritable and agitated. Affect, guarded and restricted. Intellect poor. Mood, depressed and anxious. Motor activity, psychomotor agitation. Attention span is poor. Orientation x2. Speech is pressured. Thought process, disorganized and illogical. Thought content, auditory hallucinations and paranoid delusions. Insight and judgment is poor. DIAGNOSIS: Major depressive disorder, mild, recurrent with psychotic features. PLAN: Treat the patient with Ativan 0.5 mg every six hours p.r.n. anxiety and agitation and Aricept 10 mg at bedtime and provide 20 minutes of cognitive behavioral therapy. We will go over the negative thoughts and help him to convert them to more positive thoughts, 20 minutes of cognitive behavior therapy. Chart reviewed and discussed with staff. Seen and assessed at bedside. Kip Miller M.D. DR: DONNY JOB#: [id number] CC:
[2018-04-16 07:35] LABS: BASOPHILS % (AUTO) 0.9 % (0.0-2.0); EOSINOPHILS % (AUTO) 2.5 % (0.0-3.0); HEMOGLOBIN 12.4 G/DL (14.2-18.0); LYMPHOCYTES % (AUTO) 6.7 % (20.0-45.0); MEAN CORPUSCULAR VOLUME 90 FL (80-99); MONOCYTES % (AUTO) 5.7 % (1.0-10.0); NEUTROPHILS % (AUTO) 84.2 % (45.0-75.0); PLATELET COUNT 205 K/UL (150-450); RED BLOOD COUNT 4.22 M/UL (4.70-6.10); RED CELL DISTRIBUTION WIDTH 11.3 % (11.6-14.8); WHITE BLOOD COUNT 11.6 K/UL (4.8-10.8)
[2018-04-16 07:55] LABS: ALANINE AMINOTRANSFERASE 26 U/L (12-78); ALBUMIN 2.7 G/DL (3.4-5.0); ALBUMIN/GLOBULIN RATIO 0.6 (1.0-2.7); ALKALINE PHOSPHATASE 56 U/L (46-116); ANION GAP 8 mmol/L (5-15); ASPARTATE AMINO TRANSFERASE 30 U/L (15-37); BILIRUBIN,TOTAL 0.4 MG/DL (0.2-1.0); BLOOD UREA NITROGEN 28 mg/dL (7-18); CALCIUM 9.3 MG/DL (8.5-10.1); CARBON DIOXIDE 28 MMOL/L (21-32); CHLORIDE 103 MMOL/L (98-107); CREATININE 1.8 MG/DL (0.55-1.30); POTASSIUM 3.4 MMOL/L (3.5-5.1); SODIUM 139 MMOL/L (136-145)
[2018-04-16 08:00] VITALS: BP 116/64
[2018-04-16] MEDS: Docusate 100mg cap ORAL SCH ×2 (09:38→18:01)
[2018-04-16] MEDS: Digoxin 0.125mg tab ORAL SCH (09:39)
[2018-04-16] MEDS: Augmentin 875mg Tab ORAL SCH ×2 (09:39→20:57)
[2018-04-16] MEDS: Amiodarone 200mg tab ORAL SCH (09:40)
--- NOTE | 2018-04-16 11:22 | Infectious Diseases Prog Note ---
Assessment/Plan Assessment/Plan 87 yo male with PMHx of dementia, CAD, CKD and DVT presented from [facility] due to altered level of consciousness and found to have sepsis. # Sepsis - Likley secondary to UTI, Afebrile on antibiotics - Urine Cx 04/13/18 - E.coli [place] - Blood 04/13/18 - NGTD #Leukocytosis likely secondary to above #Right buttock and testicular wounds - Not likely to currently infected - Monitor #Hx of right leg cellulitis #Hx of ESBL UTI #DVT #BPH #HTN #Hypothyroid #CAD s/p CT #Dementia #A.fib #CKD #CHF #COPD #Schizophrenia PLAN: # - Augmenting PO 875 BID for #2/ days to complete a 10 day course - 04/15 SP cefepime #11/13 an vancomycin #11/13pending cultures - f/u Urine and blood cultures - Wound care - Monitor WBCs and Temps - Supportive care Thank you for consulting us for the care of this patient. We will continue to follow with you. Subjective Allergies: Coded Allergies: No Known Allergies (Verified , 01/31/08) Subjective No acute events, No pain No N/V/D or fever Objective Vital Signs Last 24 Hour Vital Signs Date Time Temp Pulse Resp B/P (MAP) Pulse Ox O2 Delivery O2 Flow Rate FiO2 04/16/18 09:39 68 04/16/18 08:15 68 20 Room Air 21 04/16/18 08:00 97.2 70 20 116/64 (81) 96 97.2 04/16/18 05:36 130/70 04/16/18 04:00 98.0 72 20 130/70 (90) 95 98.0 04/16/18 03:53 57 04/16/18 00:17 52 04/16/18 00:00 97.8 65 20 131/61 (84) 93 97.8 04/15/18 21:00 Room Air 04/15/18 20:00 99.0 63 20 128/67 (87) 96 99.0 04/15/18 19:30 62 18 Room Air 21 04/15/18 19:24 67 04/15/18 16:26 97.0 60 18 128/62 (84) 97 97.0 04/15/18 15:51 63 04/15/18 13:53 135/74 04/15/18 13:20 135/74 04/15/18 12:56 97.0 67 18 135/74 (94) 97 97.0 04/15/18 11:28 55 Height (Feet): 5 Height (Inches): 8.00 Weight (Pounds): 184 Objective Gen: NAD, A/O x 1 (name) HEENT: NCAT, MMM, EOMI, LUNGS: CTAB, No W/C CARDS: RRR, S1, S2, No M/R/G, ABD: Soft, NT, ND, + BS Ext: C/C/E, Pulses 2+ B/L (DP, Rad): NEURO: Strength and Sensation Grossly intact Microbiology Date/Time Source Procedure Growth Status 04/14/18 06:35 Blood Blood Culture - Preliminary NO GROWTH AFTER 24 HOURS Resulted 04/14/18 06:20 Blood Blood Culture - Preliminary NO GROWTH AFTER 24 HOURS Resulted 04/13/18 15:30 Blood Blood Culture - Preliminary NO GROWTH AFTER 48 HOURS Resulted 04/13/18 15:10 Blood Blood Culture - Preliminary NO GROWTH AFTER 48 HOURS Resulted 04/13/18 15:30 Nasal Nares MRSA Culture - Final NO METHICILLIN RESISTANT STAPH AUREUS... Complete 04/13/18 16:18 Urine,Clean Catch Urine Culture - Final Escherichia Coli Complete 04/13/18 19:00 Buttock Left Gram Stain - Final Resulted 04/13/18 19:00 Wound Culture - Preliminary Pseudomonas Aeruginosa Gram Positive Cocci Diphtheroids Resulted 04/13/18 15:30 Rectum VRE Culture - Final NO VANCOMYCIN RESISTANT ENTEROCOCCUS ... Complete 04/13/18 15:30 Rectum - Final NO CARBAPENEM-RESISTANT ENTEROBACTERI... Complete Laboratory Tests Test 04/16/18 06:43 White Blood Count 11.6 K/UL (4.8-10.8) H Red Blood Count 4.22 M/UL (4.70-6.10) L Hemoglobin 12.4 G/DL (14.2-18.0) L Hematocrit 38.0 % (42.0-52.0) L Mean Corpuscular Volume 90 FL (80-99) Mean Corpuscular Hemoglobin 29.3 PG (27.0-31.0) Mean Corpuscular Hemoglobin Concent 32.5 G/DL (32.0-36.0) Red Cell Distribution Width 11.3 % (11.6-14.8) L Platelet Count 205 K/UL (150-450) Mean Platelet Volume 8.4 FL (6.5-10.1) Neutrophils (%) (Auto) 84.2 % (45.0-75.0) H Lymphocytes (%) (Auto) 6.7 % (20.0-45.0) L Monocytes (%) (Auto) 5.7 % (1.0-10.0) Eosinophils (%) (Auto) 2.5 % (0.0-3.0) Basophils (%) (Auto) 0.9 % (0.0-2.0) Sodium Level 139 MMOL/L (136-145) Potassium Level 3.4 MMOL/L (3.5-5.1) L Chloride Level 103 MMOL/L (98-107) Carbon Dioxide Level 28 MMOL/L (21-32) Anion Gap 8 mmol/L (5-15) Blood Urea Nitrogen 28 mg/dL (7-18) H Creatinine 1.8 MG/DL (0.55-1.30) H Estimat Glomerular Filtration Rate mL/min (>60) Glucose Level 95 MG/DL (74-106) Calcium Level 9.3 MG/DL (8.5-10.1) Phosphorus Level 3.0 MG/DL (2.5-4.9) Magnesium Level 2.0 MG/DL (1.8-2.4) Total Bilirubin 0.4 MG/DL (0.2-1.0) Aspartate Amino Transf (AST/SGOT) 30 U/L (15-37) Alanine Aminotransferase (ALT/SGPT) 26 U/L (12-78) Alkaline Phosphatase 56 U/L (46-116) Total Protein 6.9 G/DL (6.4-8.2) Albumin 2.7 G/DL (3.4-5.0) L Globulin 4.2 g/dL Albumin/Globulin Ratio 0.6 (1.0-2.7) L Current Medications Medications (Trade) Dose Ordered Sig/Brissa Route PRN Reason Start Time Stop Time Status Last Admin Dose Admin Acetaminophen (Tylenol) 650 mg Q4H PRN ORAL fever 04/13/18 19:00 05/13/18 18:59 Acetaminophen/ Hydrocodone Bitart ([place] 10/325) 1 tab Q4H PRN ORAL Moderate Pain (Pain Scale 4-6) 04/14/18 12:00 04/21/18 11:59 04/14/18 22:27 Albuterol/ Ipratropium (Albuterol/ Ipratropium) 3 ml Q4H PRN HHN Shortness of Breath 04/13/18 19:00 04/18/18 18:59 Amiodarone HCl (Cordarone) 200 mg DAILY ORAL 04/15/18 09:00 05/15/18 08:59 04/16/18 09:40 Amoxicillin/ Clavulanate Potassium (Augmentin) 875 mg EVERY 12 HOURS ORAL 04/15/18 11:30 04/21/18 11:29 04/16/18 09:39 Digoxin (Lanoxin) 0.125 mg DAILY ORAL 04/15/18 09:00 05/15/18 08:59 04/16/18 09:39 Docusate Sodium (Colace) 100 mg TWICE A DAY ORAL 04/14/18 18:00 05/14/18 17:59 04/16/18 09:38 Donepezil HCl (Aricept) 10 mg QHS ORAL 04/14/18 21:00 05/14/18 20:59 04/15/18 20:43 Finasteride (Proscar) 5 mg DAILY ORAL 04/15/18 09:00 05/15/18 08:59 04/16/18 09:39 Hydralazine HCl (Apresoline) 25 mg Q8HR ORAL 04/14/18 22:00 05/14/18 13:59 04/16/18 05:36 Levothyroxine Sodium (Synthroid) 50 mcg ACBREAKFAST ORAL 04/15/18 06:30 05/15/18 06:29 04/16/18 05:36 Lorazepam (Ativan) 0.5 mg Q6H PRN ORAL For Anxiety 04/14/18 04:15 04/21/18 04:14 Ondansetron HCl (Zofran) 4 mg Q6H PRN IVP Nausea & Vomiting 04/13/18 19:00 05/13/18 18:59 Pantoprazole (Protonix) 40 mg DAILY ORAL 04/14/18 15:15 05/14/18 15:14 04/16/18 09:38 Polyethylene Glycol (Miralax) 17 gm DAILYPRN PRN ORAL Constipation 04/13/18 19:00 05/13/18 18:59 Rivaroxaban (Xarelto) 15 mg QPM ORAL 04/14/18 16:30 05/14/18 16:29 04/15/18 17:04 Tamsulosin HCl (Flomax) 0.4 mg QHS ORAL 04/14/18 21:00 05/14/18 20:59 04/15/18 20:43 Temazepam (Restoril) 15 mg HSPRN PRN ORAL Insomnia 04/13/18 19:00 04/20/18 18:59 04/13/18 20:35 Kash Ribeiro M.D. Apr 16, 2018 11:22
[2018-04-16 12:00] VITALS: BP 122/56
--- NOTE | 2018-04-16 12:15 | Pulmonology Progress Note ---
Assessment/Plan Problems: (1) COPD with acute exacerbation (2) A-fib (3) HTN (hypertension) (4) CAD (coronary artery disease) (5) BPH (benign prostatic hyperplasia) (6) Dementia Assessment/Plan improving respiratory treatment titrate fio2 to sat of 92% check sputum monitor heart rate f/u electrolytes avoid nephrotoxic agents. pt/ot Subjective ROS Limited/Unobtainable: No Constitutional: Reports: no symptoms HEENT: Repors: no symptoms Respiratory: Reports: no symptoms Allergies: Coded Allergies: No Known Allergies (Verified , 01/31/08) Objective Last 24 Hour Vital Signs Date Time Temp Pulse Resp B/P (MAP) Pulse Ox O2 Delivery O2 Flow Rate FiO2 04/16/18 09:39 68 04/16/18 08:15 68 20 Room Air 21 04/16/18 08:00 97.2 70 20 116/64 (81) 96 97.2 04/16/18 05:36 130/70 04/16/18 04:00 98.0 72 20 130/70 (90) 95 98.0 04/16/18 03:53 57 04/16/18 00:17 52 04/16/18 00:00 97.8 65 20 131/61 (84) 93 97.8 04/15/18 21:00 Room Air 04/15/18 20:00 99.0 63 20 128/67 (87) 96 99.0 04/15/18 19:30 62 18 Room Air 21 04/15/18 19:24 67 04/15/18 16:26 97.0 60 18 128/62 (84) 97 97.0 04/15/18 15:51 63 04/15/18 13:53 135/74 04/15/18 13:20 135/74 04/15/18 12:56 97.0 67 18 135/74 (94) 97 97.0 Intake and Output 04/15/18 04/16/18 19:00 07:00 Output Total 250 ml 600 ml Balance -250 ml -600 ml Output Urine Total 250 ml 600 ml General Appearance: WD/WN HEENT: normocephalic Respiratory/Chest: chest wall non-tender, lungs clear Cardiovascular: normal peripheral pulses, normal rate Abdomen: normal bowel sounds Extremities: no cyanosis Skin: no rash Microbiology Date/Time Source Procedure Growth Status 04/14/18 06:35 Blood Blood Culture - Preliminary NO GROWTH AFTER 24 HOURS Resulted 04/14/18 06:20 Blood Blood Culture - Preliminary NO GROWTH AFTER 24 HOURS Resulted 04/13/18 15:30 Blood Blood Culture - Preliminary NO GROWTH AFTER 48 HOURS Resulted 04/13/18 15:10 Blood Blood Culture - Preliminary NO GROWTH AFTER 48 HOURS Resulted 04/13/18 15:30 Nasal Nares MRSA Culture - Final NO METHICILLIN RESISTANT STAPH AUREUS... Complete 04/13/18 16:18 Urine,Clean Catch Urine Culture - Final Escherichia Coli Complete 04/13/18 19:00 Buttock Left Gram Stain - Final Resulted 04/13/18 19:00 Wound Culture - Preliminary Pseudomonas Aeruginosa Gram Positive Cocci Diphtheroids Resulted 04/13/18 15:30 Rectum VRE Culture - Final NO VANCOMYCIN RESISTANT ENTEROCOCCUS ... Complete 04/13/18 15:30 Rectum - Final NO CARBAPENEM-RESISTANT ENTEROBACTERI... Complete Laboratory Tests 04/16/18 06:43: White Blood Count 11.6H, Red Blood Count 4.22L, Hemoglobin 12.4L, Hematocrit 38.0L, Mean Corpuscular Volume 90, Mean Corpuscular Hemoglobin 29.3, Mean Corpuscular Hemoglobin Concent 32.5, Red Cell Distribution Width 11.3L, Platelet Count 205, Mean Platelet Volume 8.4, Neutrophils (%) (Auto) 84.2H, Lymphocytes (%) (Auto) 6.7L, Monocytes (%) (Auto) 5.7, Eosinophils (%) (Auto) 2.5, Basophils (%) (Auto) 0.9, Sodium Level 139, Potassium Level 3.4L, Chloride Level 103, Carbon Dioxide Level 28, Anion Gap 8, Blood Urea Nitrogen 28H, Creatinine 1.8H, Estimat Glomerular Filtration Rate , Glucose Level 95, Calcium Level 9.3, Phosphorus Level 3.0, Magnesium Level 2.0, Total Bilirubin 0.4, Aspartate Amino Transf (AST/SGOT) 30, Alanine Aminotransferase (ALT/SGPT) 26, Alkaline Phosphatase 56, Total Protein 6.9, Albumin 2.7L, Globulin 4.2, Albumin/ Globulin Ratio 0.6L Current Medications Medications (Trade) Dose Ordered Sig/Brissa Route PRN Reason Start Time Stop Time Status Last Admin Dose Admin Acetaminophen (Tylenol) 650 mg Q4H PRN ORAL fever 04/13/18 19:00 9/4/18 18:59 Acetaminophen/ Hydrocodone Bitart ([place] 10/325) 1 tab Q4H PRN ORAL Moderate Pain (Pain Scale 4-6) 04/14/18 12:00 04/21/18 11:59 04/14/18 22:27 Albuterol/ Ipratropium (Albuterol/ Ipratropium) 3 ml Q4H PRN HHN Shortness of Breath 04/13/18 19:00 04/18/18 18:59 Amiodarone HCl (Cordarone) 200 mg DAILY ORAL 04/15/18 09:00 05/15/18 08:59 04/16/18 09:40 Amoxicillin/ Clavulanate Potassium (Augmentin) 875 mg EVERY 12 HOURS ORAL 04/15/18 11:30 04/21/18 11:29 04/16/18 09:39 Digoxin (Lanoxin) 0.125 mg DAILY ORAL 04/15/18 09:00 05/15/18 08:59 04/16/18 09:39 Docusate Sodium (Colace) 100 mg TWICE A DAY ORAL 04/14/18 18:00 05/14/18 17:59 04/16/18 09:38 Donepezil HCl (Aricept) 10 mg QHS ORAL 04/14/18 21:00 05/14/18 20:59 04/15/18 20:43 Finasteride (Proscar) 5 mg DAILY ORAL 04/15/18 09:00 05/15/18 08:59 04/16/18 09:39 Hydralazine HCl (Apresoline) 25 mg Q8HR ORAL 04/14/18 22:00 05/14/18 13:59 04/16/18 05:36 Levothyroxine Sodium (Synthroid) 50 mcg ACBREAKFAST ORAL 04/15/18 06:30 05/15/18 06:29 04/16/18 05:36 Lorazepam (Ativan) 0.5 mg Q6H PRN ORAL For Anxiety 04/14/18 04:15 04/21/18 04:14 Ondansetron HCl (Zofran) 4 mg Q6H PRN IVP Nausea & Vomiting 04/13/18 19:00 05/13/18 18:59 Pantoprazole (Protonix) 40 mg DAILY ORAL 04/14/18 15:15 05/14/18 15:14 04/16/18 09:38 Polyethylene Glycol (Miralax) 17 gm DAILYPRN PRN ORAL Constipation 04/13/18 19:00 05/13/18 18:59 Rivaroxaban (Xarelto) 15 mg QPM ORAL 04/14/18 16:30 05/14/18 16:29 04/15/18 17:04 Tamsulosin HCl (Flomax) 0.4 mg QHS ORAL 04/14/18 21:00 05/14/18 20:59 04/15/18 20:43 Temazepam (Restoril) 15 mg HSPRN PRN ORAL Insomnia 04/13/18 19:00 04/20/18 18:59 04/13/18 20:35 Toney Narayan MD Apr 16, 2018 12:15
--- NOTE | 2018-04-16 12:38 | General Progress Note ---
Assessment/Plan Problem List: (1) Hypothyroid ICD Codes: E03.9 - Hypothyroidism, unspecified SNOMED: 53856675 (2) Dehydration ICD Codes: E86.0 - Dehydration SNOMED: 37286862 (3) UTI (urinary tract infection) ICD Codes: N39.0 - Urinary tract infection, site not specified SNOMED: 03598979 (4) Sepsis ICD Codes: A41.9 - Sepsis, unspecified organism SNOMED: 20429388 (5) Dementia ICD Codes: F03.90 - Dementia SNOMED: 20531335 (6) CHF (congestive heart failure) ICD Codes: I50.9 - Heart failure, unspecified SNOMED: 03045488 (7) A-fib ICD Codes: I48.91 - Unspecified atrial fibrillation SNOMED: 40017366 (8) HTN (hypertension) ICD Codes: I10 - Essential (primary) hypertension SNOMED: 22502919 (9) BPH (benign prostatic hyperplasia) ICD Codes: N40.0 - Enlarged prostate without lower urinary tract symptoms SNOMED: 063461967, 970939668 Status: stable, progressing Assessment/Plan ot pt diet abx cbc bmp am dc plan snf Subjective Constitutional: Reports: weakness Allergies: Coded Allergies: No Known Allergies (Verified , 01/31/08) All Systems: reviewed and negative except above Subjective sleepy calm in bed Objective Last 24 Hour Vital Signs Date Time Temp Pulse Resp B/P (MAP) Pulse Ox O2 Delivery O2 Flow Rate FiO2 04/16/18 09:39 68 04/16/18 08:15 68 20 Room Air 21 04/16/18 08:00 97.2 70 20 116/64 (81) 96 97.2 04/16/18 05:36 130/70 04/16/18 04:00 98.0 72 20 130/70 (90) 95 98.0 04/16/18 03:53 57 04/16/18 00:17 52 04/16/18 00:00 97.8 65 20 131/61 (84) 93 97.8 04/15/18 21:00 Room Air 04/15/18 20:00 99.0 63 20 128/67 (87) 96 99.0 04/15/18 19:30 62 18 Room Air 21 04/15/18 19:24 67 04/15/18 16:26 97.0 60 18 128/62 (84) 97 97.0 04/15/18 15:51 63 04/15/18 13:53 135/74 04/15/18 13:20 135/74 04/15/18 12:56 97.0 67 18 135/74 (94) 97 97.0 Intake and Output 04/15/18 04/16/18 19:00 07:00 Output Total 250 ml 600 ml Balance -250 ml -600 ml Output Urine Total 250 ml 600 ml Laboratory Tests 04/16/18 06:43: White Blood Count 11.6H, Red Blood Count 4.22L, Hemoglobin 12.4L, Hematocrit 38.0L, Mean Corpuscular Volume 90, Mean Corpuscular Hemoglobin 29.3, Mean Corpuscular Hemoglobin Concent 32.5, Red Cell Distribution Width 11.3L, Platelet Count 205, Mean Platelet Volume 8.4, Neutrophils (%) (Auto) 84.2H, Lymphocytes (%) (Auto) 6.7L, Monocytes (%) (Auto) 5.7, Eosinophils (%) (Auto) 2.5, Basophils (%) (Auto) 0.9, Sodium Level 139, Potassium Level 3.4L, Chloride Level 103, Carbon Dioxide Level 28, Anion Gap 8, Blood Urea Nitrogen 28H, Creatinine 1.8H, Estimat Glomerular Filtration Rate , Glucose Level 95, Calcium Level 9.3, Phosphorus Level 3.0, Magnesium Level 2.0, Total Bilirubin 0.4, Aspartate Amino Transf (AST/SGOT) 30, Alanine Aminotransferase (ALT/SGPT) 26, Alkaline Phosphatase 56, Total Protein 6.9, Albumin 2.7L, Globulin 4.2, Albumin/ Globulin Ratio 0.6L Height (Feet): 5 Height (Inches): 8.00 Weight (Pounds): 184 General Appearance: alert EENT: normal ENT inspection Neck: normal alignment Cardiovascular: normal peripheral pulses, normal rate, regular rhythm Respiratory/Chest: chest wall non-tender, lungs clear, normal breath sounds Abdomen: normal bowel sounds, non tender, soft Extremities: normal inspection Edema: no edema noted Arm (L), no edema noted Arm (R), no edema noted Leg (L), no edema noted Leg (R), no edema noted Pedal (L), no edema noted Pedal (R), no edema noted Generalized Neurologic: responsive, motor weakness Skin: normal pigmentation, warm/dry Ricardo Ruiz DO Apr 16, 2018 12:38
[2018-04-16 16:00] VITALS: BP 120/81
--- NOTE | 2018-04-16 16:13 | Nephrology Progress Note ---
Assessment/Plan Problem List: (1) Acute on chronic renal failure (2) Functional quadriplegia (3) BPH (benign prostatic hyperplasia) (4) A-fib (5) Hypoalbuminemia due to protein-calorie malnutrition Assessment . Chronic kidney disease, most likely due to HTN Superimposed Dehydration- On Diuretics . UTI / Sepsis . Malnutrition with low albumin. . h/o Right lower extremity cellulitis. . h/o Right lower extremity deep venous thrombosis. . Hypertension, . History of hypothyroidism. . History of atrial fibrillation. . Scrotal and Sacral decub . Chronic kidney disease, most likely due to HTN Superimposed Dehydration- On Diuretics . UTI / Sepsis . Malnutrition with low albumin. . h/o Right lower extremity cellulitis. . h/o Right lower extremity deep venous thrombosis. . Hypertension, . History of hypothyroidism. . History of atrial fibrillation. Plan Stop Zaroxylin 2D Echo ? Kidney WERO Pending monitor renal parameters Avoid Nephrotoxics adjust BP meds- Subjective ROS Limited/Unobtainable: No Constitutional: Reports: malaise Objective Objective Last 24 Hour Vital Signs Date Time Temp Pulse Resp B/P (MAP) Pulse Ox O2 Delivery O2 Flow Rate FiO2 04/16/18 13:56 122/56 04/16/18 12:00 97.8 62 21 122/56 (78) 96 97.8 04/16/18 11:31 64 04/16/18 09:39 68 04/16/18 08:20 Room Air 04/16/18 08:15 68 20 Room Air 21 04/16/18 08:00 97.2 70 20 116/64 (81) 96 97.2 04/16/18 07:33 71 04/16/18 05:36 130/70 04/16/18 04:00 98.0 72 20 130/70 (90) 95 98.0 04/16/18 03:53 57 04/16/18 00:17 52 04/16/18 00:00 97.8 65 20 131/61 (84) 93 97.8 04/15/18 21:00 Room Air 04/15/18 20:00 99.0 63 20 128/67 (87) 96 99.0 04/15/18 19:30 62 18 Room Air 21 04/15/18 19:24 67 04/15/18 16:26 97.0 60 18 128/62 (84) 97 97.0 Intake and Output 04/15/18 04/16/18 19:00 07:00 Output Total 250 ml 600 ml Balance -250 ml -600 ml Output Urine Total 250 ml 600 ml Laboratory Tests 04/16/18 06:43: White Blood Count 11.6H, Red Blood Count 4.22L, Hemoglobin 12.4L, Hematocrit 38.0L, Mean Corpuscular Volume 90, Mean Corpuscular Hemoglobin 29.3, Mean Corpuscular Hemoglobin Concent 32.5, Red Cell Distribution Width 11.3L, Platelet Count 205, Mean Platelet Volume 8.4, Neutrophils (%) (Auto) 84.2H, Lymphocytes (%) (Auto) 6.7L, Monocytes (%) (Auto) 5.7, Eosinophils (%) (Auto) 2.5, Basophils (%) (Auto) 0.9, Sodium Level 139, Potassium Level 3.4L, Chloride Level 103, Carbon Dioxide Level 28, Anion Gap 8, Blood Urea Nitrogen 28H, Creatinine 1.8H, Estimat Glomerular Filtration Rate , Glucose Level 95, Calcium Level 9.3, Phosphorus Level 3.0, Magnesium Level 2.0, Total Bilirubin 0.4, Aspartate Amino Transf (AST/SGOT) 30, Alanine Aminotransferase (ALT/SGPT) 26, Alkaline Phosphatase 56, Total Protein 6.9, Albumin 2.7L, Globulin 4.2, Albumin/ Globulin Ratio 0.6L Height (Feet): 5 Height (Inches): 8.00 Weight (Pounds): 184 General Appearance: lethargic Cardiovascular: normal rate Respiratory/Chest: decreased breath sounds Abdomen: soft Objective no change Ravi Kramre MD Apr 16, 2018 16:13
[2018-04-16] MEDS: Xarelto 15mg tab ORAL SCH (16:18)
[2018-04-16] MEDS ORDERED: Albuterol/Ipratropium 3ml neb HHN PRN (16:43)
[2018-04-16] MEDS ORDERED: HYDROcodone/Acetamin 10/325 tab ORAL PRN (16:43)
--- NOTE | 2018-04-16 17:29 | Consultation ---
History of Present Illness General Chief Complaint: Altered Level of Consciousness Reason for Consultation: Sepsis Present Illness HPI 87 year old male with multiple medical comorbidities who is fairly combative presented with sob and possible fall. during admission noted to have multiple wounds of different characteristics. surgery called to evaluate and assist with wound care. patient seen, chart reviewed, patient examined. question of possible infectious etiology of wounds. Allergies: Coded Allergies: No Known Allergies (Verified , 01/31/08) Medication History Scheduled Acyclovir (Zovirax), 800 MG PO QID, (Reported) Amiodarone Hcl* (Amiodarone Hcl*), 200 MG ORAL DAILY, (Reported) Amlodipine Besylate (Norvasc), 2.5 MG ORAL DAILY, (Reported) Atorvastatin Calcium* (Lipitor*), 10 MG ORAL BEDTIME, (Reported) Calcium Carbonate/Vitamin D3 (Calcium 500 + D Tablet), 1 EACH PO BID, (Reported) Cephalexin* (Keflex*), 500 MG ORAL Q6H Cephalexin* (Keflex*), 500 MG ORAL EVERY 12 HOURS, (Reported) Digoxin* (Digoxin*), 125 MCG ORAL DAILY, (Reported) Donepezil Hcl* (Donepezil Hcl*), 10 MG ORAL DAILY, (Reported) Doxycycline Monohydrate* (Doxycycline Monohydrate*), 100 MG ORAL Q12H Famotidine (Famotidine), 20 MG ORAL DAILY, (Reported) Finasteride* (Proscar*), 5 MG ORAL DAILY, (Reported) Finasteride* (Proscar*), 5 MG ORAL DAILY, (Reported) Furosemide* (Lasix*), 40 MG ORAL DAILY, (Reported) Hydralazine Hcl* (Hydralazine Hcl*), 50 MG ORAL THREE TIMES A DAY, (Reported) Hydrochlorothiazide* (Hydrochlorothiazide*), 12.5 MG ORAL DAILY, (Reported) Levothyroxine Sodium* (Synthroid*), 50 MCG ORAL ACBREAKFAST, (Reported) Lorazepam* (Ativan*), 1 MG ORAL BEDTIME, (Reported) Metolazone (Metolazone), 5 MG ORAL DAILY, (Reported) Metoprolol Tartrate* (Metoprolol Tartrate*), 25 MG ORAL EVERY 12 HOURS, ( Reported) Metoprolol Tartrate* (Metoprolol Tartrate*), 50 MG ORAL DAILY, (Reported) Multivitamin (Multi Vitamin Daily), 1 TAB ORAL DAILY, (Reported) Ovmozzuzwuny-Wcpc-Hksdieoj,Iso (Zosyn 3.375 Gm Pre Mix-Bag), 3.375 GM IVPB EVERY 8 HOURS, (Reported) Ranitidine Hcl* (Ranitidine Hcl*), 150 MG PO QHS, (Reported) Rivaroxaban (Xarelto*), 20 MG ORAL DAILY, (Reported) Rivaroxaban (Xarelto), 15 MG ORAL DAILY, (Reported) Tamsulosin HCl (Flomax), 0.4 MG ORAL DAILY, (Reported) Tamsulosin Hcl (Tamsulosin Hcl*), 0.4 MG ORAL BEDTIME, (Reported) Triamterene/Hydrochlorothiazide* (Dyazide 37.5-25 Mg Tab*), 1 TAB ORAL DAILY, ( Reported) Vancomycin HCl (Vancocin HCl), 1,000 MG IVPB DAILY, (Reported) Vancomycin Hcl/D5w (Vancomycin-D5w 1 G/250 Ml), 1.25 GM IVPB Q24H, (Reported) Scheduled PRN Acetaminophen (Acetaminophen), 500 MG ORAL Q4H PRN for Pain Scale (3-5), ( Reported) Acetaminophen* (Acetaminophen 325MG Tablet*), 650 MG ORAL Q6H PRN for Fever/ Headache/Mild Pain, (Reported) Acyclovir (Zovirax), 1 APPLIC TOPIC Q12HR PRN for RASH, (Reported) Albuterol Sulfate (Albuterol Sulfate), 0.63 MG HHN Q6HR PRN for Shortness of Breath, (Reported) Hydrocodone Bit/Acetaminophen 10-325* ([place] 10-325*), 1 TAB ORAL Q4H PRN for For Pain, (Reported) Ipratropium/Albuterol Sulfate (DuoNeb 0.5-3(2.5)mg/3ml), 3 ML HHN EVERY 8 HOURS PRN for Shortness of Breath, (Reported) Morphine Sulfate* (Morphine Sulfate*), 2 MG IV Q4HR PRN for For Pain, (Reported) Polyethylene Glycol 3350* (Miralax*), 17 GM ORAL DAILY PRN for Constipation, ( Reported) Tramadol Hcl* (Ultram*), 50 MG ORAL Q8HR PRN for For Pain, (Reported) Miscellaneous Medications Ipratropium [place] (Atrovent Hfa), 12.9 GM IH, (Reported) Patient History Limited by: medical condition History Provided By: Patient, Medical Record, PMD Healthcare decision maker Resuscitation status Full Code Advanced Directive on File Past Medical/Surgical History Past Medical/Surgical History: (1) Cellulitis (2) Herpes zoster (3) Bradycardia (4) Nursing difficulty (5) DVT (deep venous thrombosis) (6) Cellulitis of leg (7) Dyspnea (8) Dehydration (9) UTI (urinary tract infection) (10) CAD (coronary artery disease) (11) Dementia (12) CHF (congestive heart failure) (13) A-fib (14) HTN (hypertension) (15) BPH (benign prostatic hyperplasia) (16) COPD with acute exacerbation (17) Acute on chronic renal failure (18) Functional quadriplegia (19) Hypoalbuminemia due to protein-calorie malnutrition (20) Sepsis (21) Hypothyroid (22) Stage III pressure ulcer of sacral region Review of Systems All Other Systems: negative except mentioned in HPI ROS Narrative difficult to obtain given medical condition Physical Exam General Appearance: no apparent distress, alert Lines, tubes and drains: peripheral HEENT: normocephalic, mucous membranes moist Neck: normal inspection Respiratory/Chest: normal breath sounds, no respiratory distress, no accessory muscle use Cardiovascular/Chest: normal peripheral pulses Abdomen: normal bowel sounds, non tender, soft, no organomegaly, no mass Extremities: normal inspection, other - see photos Skin Exam: other - see photos Neurologic: alert, responsive Last 24 Hour Vital Signs Date Time Temp Pulse Resp B/P (MAP) Pulse Ox O2 Delivery O2 Flow Rate FiO2 04/16/18 16:00 98.8 61 21 120/81 (94) 95 98.8 04/16/18 13:56 122/56 04/16/18 12:00 97.8 62 21 122/56 (78) 96 97.8 04/16/18 11:31 64 04/16/18 09:39 68 04/16/18 08:20 Room Air 04/16/18 08:15 68 20 Room Air 21 04/16/18 08:00 97.2 70 20 116/64 (81) 96 97.2 04/16/18 07:33 71 04/16/18 05:36 130/70 04/16/18 04:00 98.0 72 20 130/70 (90) 95 98.0 04/16/18 03:53 57 04/16/18 00:17 52 04/16/18 00:00 97.8 65 20 131/61 (84) 93 97.8 04/15/18 21:00 Room Air 04/15/18 20:00 99.0 63 20 128/67 (87) 96 99.0 04/15/18 19:30 62 18 Room Air 21 04/15/18 19:24 67 Intake and Output 04/15/18 04/16/18 19:00 07:00 Output Total 250 ml 600 ml Balance -250 ml -600 ml Output Urine Total 250 ml 600 ml Laboratory Tests Test 04/16/18 06:43 White Blood Count 11.6 K/UL (4.8-10.8) H Red Blood Count 4.22 M/UL (4.70-6.10) L Hemoglobin 12.4 G/DL (14.2-18.0) L Hematocrit 38.0 % (42.0-52.0) L Mean Corpuscular Volume 90 FL (80-99) Mean Corpuscular Hemoglobin 29.3 PG (27.0-31.0) Mean Corpuscular Hemoglobin Concent 32.5 G/DL (32.0-36.0) Red Cell Distribution Width 11.3 % (11.6-14.8) L Platelet Count 205 K/UL (150-450) Mean Platelet Volume 8.4 FL (6.5-10.1) Neutrophils (%) (Auto) 84.2 % (45.0-75.0) H Lymphocytes (%) (Auto) 6.7 % (20.0-45.0) L Monocytes (%) (Auto) 5.7 % (1.0-10.0) Eosinophils (%) (Auto) 2.5 % (0.0-3.0) Basophils (%) (Auto) 0.9 % (0.0-2.0) Sodium Level 139 MMOL/L (136-145) Potassium Level 3.4 MMOL/L (3.5-5.1) L Chloride Level 103 MMOL/L (98-107) Carbon Dioxide Level 28 MMOL/L (21-32) Anion Gap 8 mmol/L (5-15) Blood Urea Nitrogen 28 mg/dL (7-18) H Creatinine 1.8 MG/DL (0.55-1.30) H Estimat Glomerular Filtration Rate mL/min (>60) Glucose Level 95 MG/DL (74-106) Calcium Level 9.3 MG/DL (8.5-10.1) Phosphorus Level 3.0 MG/DL (2.5-4.9) Magnesium Level 2.0 MG/DL (1.8-2.4) Total Bilirubin 0.4 MG/DL (0.2-1.0) Aspartate Amino Transf (AST/SGOT) 30 U/L (15-37) Alanine Aminotransferase (ALT/SGPT) 26 U/L (12-78) Alkaline Phosphatase 56 U/L (46-116) Total Protein 6.9 G/DL (6.4-8.2) Albumin 2.7 G/DL (3.4-5.0) L Globulin 4.2 g/dL Albumin/Globulin Ratio 0.6 (1.0-2.7) L Height (Feet): 5 Height (Inches): 8.00 Weight (Pounds): 184 Medications Current Medications Medications (Trade) Dose Ordered Sig/Brissa Route PRN Reason Start Time Stop Time Status Last Admin Dose Admin Acetaminophen (Tylenol) 650 mg Q4H PRN ORAL fever 04/16/18 19:00 05/13/18 18:59 Acetaminophen/ Hydrocodone Bitart ([place] 10/325) 1 tab Q4H PRN ORAL Moderate Pain (Pain Scale 4-6) 04/16/18 16:43 04/21/18 16:42 Albuterol/ Ipratropium (Albuterol/ Ipratropium) 3 ml Q4H PRN HHN Shortness of Breath 04/16/18 16:43 04/18/18 16:42 Amiodarone HCl (Cordarone) 200 mg DAILY ORAL 04/17/18 09:00 05/15/18 08:59 Amoxicillin/ Clavulanate Potassium (Augmentin) 875 mg EVERY 12 HOURS ORAL 04/16/18 21:00 04/21/18 11:29 Digoxin (Lanoxin) 0.125 mg DAILY ORAL 04/17/18 09:00 05/15/18 08:59 Docusate Sodium (Colace) 100 mg TWICE A DAY ORAL 04/16/18 18:00 05/14/18 17:59 Donepezil HCl (Aricept) 10 mg QHS ORAL 04/16/18 21:00 05/14/18 20:59 Finasteride (Proscar) 5 mg DAILY ORAL 04/17/18 09:00 05/15/18 08:59 Hydralazine HCl (Apresoline) 25 mg Q8HR ORAL 04/16/18 22:00 05/14/18 13:59 Levothyroxine Sodium (Synthroid) 50 mcg ACBREAKFAST ORAL 04/17/18 06:30 05/15/18 06:29 Lorazepam (Ativan) 0.5 mg Q6H PRN ORAL For Anxiety 04/16/18 22:15 04/21/18 04:14 Ondansetron HCl (Zofran) 4 mg Q6H PRN IVP Nausea & Vomiting 04/16/18 19:00 05/13/18 18:59 Pantoprazole (Protonix) 40 mg DAILY ORAL 04/17/18 09:00 05/14/18 15:14 Polyethylene Glycol (Miralax) 17 gm DAILYPRN PRN ORAL Constipation 04/16/18 19:00 05/13/18 18:59 Potassium Chloride (K-Dur) 40 meq ONCE ORAL 04/16/18 17:15 04/16/18 18:15 Rivaroxaban (Xarelto) 15 mg QPM ORAL 04/17/18 16:30 05/14/18 16:29 Tamsulosin HCl (Flomax) 0.4 mg QHS ORAL 04/16/18 21:00 05/14/18 20:59 Temazepam (Restoril) 15 mg HSPRN PRN ORAL Insomnia 04/16/18 19:00 04/20/18 18:59 Assessment/Plan Problem List: (1) Sepsis ICD Codes: A41.9 - Sepsis, unspecified organism SNOMED: 55142972 (2) Cellulitis of leg ICD Codes: L03.119 - Cellulitis of unspecified part of limb SNOMED: 001477414 (3) Stage III pressure ulcer of sacral region ICD Codes: L89.153 - Pressure ulcer of sacral region, stage 3 SNOMED: 526592483, 245140634 Assessment/Plan sDTI L buttocks which now presents as full thickness Stage III decubitus ulcer / injury to Superior and inferior aspects of L buttocks. L buttocks (superior) full thickness with 90% slough to wound bed with dark indurated borders and periwound. Tender when palpated. L buttocks (inferior) full thickness pressure injury (L) 3.1cm x (W) 1.5cm with 50% yellow slough/erythema with dark indurated borders tender when palpated sDTI partially opened medial L Buttocks (L)0.8 (W)0.6cm wound bed is clean ,(+) induration. Resolving pressure injury noted to R buttocks 100% epithelialized. Full thickness pressure injury Base of scrotum (L)2.6cm x (W)6cm with approx 40 % soft eschar /slough Hemosiderin bilat lower ext.R heel boggy with non-blanchable erythema. Non- tender when palpated. Reabsorbed blood blister lateral L Heel (L)1.8cm (W) 1.2cm. Medial L heel stable dry eschar (L)0.8cm x (W) 1cm Tx Plan: Cleanse L buttocks wounds with Saline. Apply TheraHoney gel to slough .Apply Barrier wipes to periwound and cover with foam drsg daily and prn as ordered by . Cleanse Scrotal wound with saline .Apply Therahoney to wound. Skin Barrier wipe periwound and cover with foam drsg daily and prn . Skin barrier wipes to both heels daily and prn .Off-Load heels with pillow . Turn and reposition at least every 2hours as tolerated. Junaid Mendoza Apr 16, 2018 17:29
[2018-04-16] MEDS ORDERED: Miralax 17gm pkt ORAL PRN (19:00)
[2018-04-16 20:00] VITALS: BP 129/68
[2018-04-16] MEDS ORDERED: Tamsulosin 0.4mg cap ORAL SCH (21:00)
[2018-04-16] MEDS ORDERED: Donepezil 10mg tab ORAL SCH (21:00)
[2018-04-16] MEDS ORDERED: LORazepam 0.5mg tab ORAL PRN (22:15)
[2018-04-17] VITALS: BP 125/72
[2018-04-17 04:00] VITALS: BP 125/75
[2018-04-17] MEDS: HydrALAZINE 25mg tab ORAL SCH ×2 (06:04→14:36)
[2018-04-17 07:45] LABS: BASOPHILS % (AUTO) 0.7 % (0.0-2.0); EOSINOPHILS % (AUTO) 2.4 % (0.0-3.0); HEMOGLOBIN 12.5 G/DL (14.2-18.0); LYMPHOCYTES % (AUTO) 9.2 % (20.0-45.0); MEAN CORPUSCULAR VOLUME 90 FL (80-99); MONOCYTES % (AUTO) 7.2 % (1.0-10.0); NEUTROPHILS % (AUTO) 80.5 % (45.0-75.0); PLATELET COUNT 198 K/UL (150-450); RED CELL DISTRIBUTION WIDTH 11.2 % (11.6-14.8); WHITE BLOOD COUNT 10.1 K/UL (4.8-10.8)
[2018-04-17 07:53] LABS: ANION GAP 11 mmol/L (5-15); BLOOD UREA NITROGEN 25 mg/dL (7-18); CALCIUM 9.5 MG/DL (8.5-10.1); CARBON DIOXIDE 24 MMOL/L (21-32); CHLORIDE 104 MMOL/L (98-107); CREATININE 1.7 MG/DL (0.55-1.30); POTASSIUM 3.9 MMOL/L (3.5-5.1); SODIUM 139 MMOL/L (136-145)
[2018-04-17 08:00] VITALS: BP 128/62
[2018-04-17] MEDS: Docusate 100mg cap ORAL SCH ×2 (08:48→17:41)
[2018-04-17] MEDS: Augmentin 875mg Tab ORAL SCH (08:48)
[2018-04-17] MEDS ORDERED: Amiodarone 200mg tab ORAL SCH (09:00)
[2018-04-17] MEDS ORDERED: Digoxin 0.125mg tab ORAL SCH (09:00)
--- NOTE | 2018-04-17 09:40 | Infectious Diseases Prog Note ---
Assessment/Plan Assessment/Plan 87 yo male with PMHx of dementia, CAD, CKD and DVT presented from [facility] due to altered level of consciousness and found to have sepsis. # Sepsis - Likley secondary to UTI, Afebrile on antibiotics - Urine Cx 04/13/18 - E.coli [place] - Blood 04/13/18 - NGTD #Leukocytosis likely secondary to above #Right buttock and testicular wounds - Not likely to currently infected - Monitor #Hx of right leg cellulitis #Hx of ESBL UTI #DVT #BPH #HTN #Hypothyroid #CAD s/p MS #Dementia #A.fib #CKD #CHF #COPD #Schizophrenia PLAN: - Augmenting PO 875 BID for #3/ days to complete a 10 day course - End date - 04/15 SP cefepime #11/13 an vancomycin #11/13pending cultures - f/u Urine and blood cultures - Wound care - Monitor WBCs and Temps - Supportive care Thank you for consulting us for the care of this patient. We will continue to follow with you. Subjective Allergies: Coded Allergies: No Known Allergies (Verified , 01/31/08) Subjective No acute events overnight No N/V/D or fever Objective Vital Signs Last 24 Hour Vital Signs Date Time Temp Pulse Resp B/P (MAP) Pulse Ox O2 Delivery O2 Flow Rate FiO2 04/17/18 08:49 64 04/17/18 08:08 64 20 Room Air 21 04/17/18 06:04 128/77 04/17/18 04:00 98.2 72 18 125/75 (92) 99 98.2 04/17/18 00:00 99.2 70 18 125/72 (89) 100 99.2 04/16/18 21:59 129/68 04/16/18 21:00 Room Air 04/16/18 20:00 99.9 63 20 129/68 (88) 96 99.9 04/16/18 16:00 98.8 61 21 120/81 (94) 95 98.8 04/16/18 13:56 122/56 04/16/18 12:00 97.8 62 21 122/56 (78) 96 97.8 04/16/18 11:31 64 04/16/18 09:39 68 Height (Feet): 5 Height (Inches): 8.00 Weight (Pounds): 184 Objective Gen: NAD, A/O x 1 (name), calm HEENT: NCAT, MMM, EOMI, LUNGS: CTAB, No W/C CARDS: RRR, S1, S2, No M/R/G, ABD: Soft, NT, ND, + BS Ext: C/C/E, Pulses 2+ B/L (DP, Rad): NEURO: Strength and Sensation Grossly intact Laboratory Tests Test 04/17/18 07:10 White Blood Count 10.1 K/UL (4.8-10.8) Red Blood Count 4.10 M/UL (4.70-6.10) L Hemoglobin 12.5 G/DL (14.2-18.0) L Hematocrit 37.0 % (42.0-52.0) L Mean Corpuscular Volume 90 FL (80-99) Mean Corpuscular Hemoglobin 30.5 PG (27.0-31.0) Mean Corpuscular Hemoglobin Concent 33.8 G/DL (32.0-36.0) Red Cell Distribution Width 11.2 % (11.6-14.8) L Platelet Count 198 K/UL (150-450) Mean Platelet Volume 8.5 FL (6.5-10.1) Neutrophils (%) (Auto) 80.5 % (45.0-75.0) H Lymphocytes (%) (Auto) 9.2 % (20.0-45.0) L Monocytes (%) (Auto) 7.2 % (1.0-10.0) Eosinophils (%) (Auto) 2.4 % (0.0-3.0) Basophils (%) (Auto) 0.7 % (0.0-2.0) Sodium Level 139 MMOL/L (136-145) Potassium Level 3.9 MMOL/L (3.5-5.1) Chloride Level 104 MMOL/L (98-107) Carbon Dioxide Level 24 MMOL/L (21-32) Anion Gap 11 mmol/L (5-15) Blood Urea Nitrogen 25 mg/dL (7-18) H Creatinine 1.7 MG/DL (0.55-1.30) H Estimat Glomerular Filtration Rate mL/min (>60) Glucose Level 102 MG/DL (74-106) Calcium Level 9.5 MG/DL (8.5-10.1) Current Medications Medications (Trade) Dose Ordered Sig/Brissa Route PRN Reason Start Time Stop Time Status Last Admin Dose Admin Acetaminophen (Tylenol) 650 mg Q4H PRN ORAL fever 04/16/18 19:00 05/13/18 18:59 Acetaminophen/ Hydrocodone Bitart ([place] 10/325) 1 tab Q4H PRN ORAL Moderate Pain (Pain Scale 4-6) 04/16/18 16:43 04/21/18 16:42 Albuterol/ Ipratropium (Albuterol/ Ipratropium) 3 ml Q4H PRN HHN Shortness of Breath 04/16/18 16:43 04/18/18 16:42 Amiodarone HCl (Cordarone) 200 mg DAILY ORAL 04/17/18 09:00 05/15/18 08:59 04/17/18 08:48 Amoxicillin/ Clavulanate Potassium (Augmentin) 875 mg EVERY 12 HOURS ORAL 04/16/18 21:00 04/21/18 11:29 04/17/18 08:48 Digoxin (Lanoxin) 0.125 mg DAILY ORAL 04/17/18 09:00 05/15/18 08:59 04/17/18 08:49 Docusate Sodium (Colace) 100 mg TWICE A DAY ORAL 04/16/18 18:00 05/14/18 17:59 04/17/18 08:48 Donepezil HCl (Aricept) 10 mg QHS ORAL 04/16/18 21:00 05/14/18 20:59 04/16/18 20:57 Finasteride (Proscar) 5 mg DAILY ORAL 04/17/18 09:00 05/15/18 08:59 04/17/18 08:48 Hydralazine HCl (Apresoline) 25 mg Q8HR ORAL 04/16/18 22:00 05/14/18 13:59 04/17/18 06:04 Levothyroxine Sodium (Synthroid) 50 mcg ACBREAKFAST ORAL 04/17/18 06:30 05/15/18 06:29 04/17/18 06:00 Lorazepam (Ativan) 0.5 mg Q6H PRN ORAL For Anxiety 04/16/18 22:15 04/21/18 04:14 Ondansetron HCl (Zofran) 4 mg Q6H PRN IVP Nausea & Vomiting 04/16/18 19:00 05/13/18 18:59 Pantoprazole (Protonix) 40 mg DAILY ORAL 04/17/18 09:00 05/14/18 15:14 04/17/18 08:49 Polyethylene Glycol (Miralax) 17 gm DAILYPRN PRN ORAL Constipation 04/16/18 19:00 05/13/18 18:59 Rivaroxaban (Xarelto) 15 mg QPM ORAL 04/17/18 16:30 05/14/18 16:29 Tamsulosin HCl (Flomax) 0.4 mg QHS ORAL 04/16/18 21:00 05/14/18 20:59 04/16/18 20:57 Temazepam (Restoril) 15 mg HSPRN PRN ORAL Insomnia 04/16/18 19:00 04/20/18 18:59 Kash Ribeiro M.D. Apr 17, 2018 09:40
--- NOTE | 2018-04-17 10:26 | Diagnostic Imaging Report ---
Indication: Acute renal failure Technique: Grayscale and duplex images of the kidneys, retroperitoneum, and bladder were obtained. Comparison: none Findings: Right kidney measures 11.3 cm in length. Left kidney measures 9.5 cm in length. Both kidneys demonstrate normal echogenicity. No hydronephrosis. No focal abnormality. Normal inferior vena cava. Bladder demonstrates volume of 68 mL. The bladder wall is equivocally mild thickening although this is probably an artifact of under distention. Impression: Essentially unremarkable exam Apparent bladder wall thickening, probably an artifact of under distention although cystitis is not completely excludable.
[2018-04-17 11:54] VITALS: BP 139/70
--- NOTE | 2018-04-17 12:57 | Nephrology Progress Note ---
Assessment/Plan Problem List: (1) Acute on chronic renal failure (2) Functional quadriplegia (3) BPH (benign prostatic hyperplasia) (4) A-fib (5) Hypoalbuminemia due to protein-calorie malnutrition Assessment . Chronic kidney disease, most likely due to HTN Superimposed Dehydration- On Diuretics . UTI / Sepsis . Malnutrition with low albumin. . h/o Right lower extremity cellulitis. . h/o Right lower extremity deep venous thrombosis. . Hypertension, . History of hypothyroidism. . History of atrial fibrillation. . Scrotal and Sacral decub . Chronic kidney disease, most likely due to HTN Superimposed Dehydration- On Diuretics . UTI / Sepsis . Malnutrition with low albumin. . h/o Right lower extremity cellulitis. . h/o Right lower extremity deep venous thrombosis. . Hypertension, . History of hypothyroidism. . History of atrial fibrillation. Plan Stop Zaroxylin 2D Echo ? Kidney WERO : Right kidney measures 11.3 cm in length. Left kidney measures 9.5 cm in length. Both kidneys demonstrate normal echogenicity. No hydronephrosis. monitor renal parameters Avoid Nephrotoxics adjust BP meds- Subjective ROS Limited/Unobtainable: No Constitutional: Reports: malaise Objective Objective Last 24 Hour Vital Signs Date Time Temp Pulse Resp B/P (MAP) Pulse Ox O2 Delivery O2 Flow Rate FiO2 04/17/18 11:54 98.8 67 20 139/70 (93) 96 98.8 04/17/18 09:00 Room Air 04/17/18 08:49 64 04/17/18 08:08 64 20 Room Air 21 04/17/18 08:00 98.2 71 20 128/62 (84) 96 98.2 04/17/18 06:04 128/77 04/17/18 04:00 98.2 72 18 125/75 (92) 99 98.2 04/17/18 00:00 99.2 70 18 125/72 (89) 100 99.2 04/16/18 21:59 129/68 04/16/18 21:00 Room Air 04/16/18 20:00 99.9 63 20 129/68 (88) 96 99.9 04/16/18 16:00 98.8 61 21 120/81 (94) 95 98.8 04/16/18 13:56 122/56 Intake and Output 04/16/18 04/17/18 19:00 07:00 Intake Total 640 ml Output Total 100 ml Balance 540 ml Intake Oral 640 ml Output Urine Total 100 ml # Voids 1 3 # Bowel Movements 2 3 Laboratory Tests 04/17/18 07:10: White Blood Count 10.1, Red Blood Count 4.10L, Hemoglobin 12.5L, Hematocrit 37.0L, Mean Corpuscular Volume 90, Mean Corpuscular Hemoglobin 30.5, Mean Corpuscular Hemoglobin Concent 33.8, Red Cell Distribution Width 11.2L, Platelet Count 198, Mean Platelet Volume 8.5, Neutrophils (%) (Auto) 80.5H, Lymphocytes (%) (Auto) 9.2L, Monocytes (%) (Auto) 7.2, Eosinophils (%) (Auto) 2.4, Basophils (%) (Auto) 0.7, Sodium Level 139, Potassium Level 3.9, Chloride Level 104, Carbon Dioxide Level 24, Anion Gap 11, Blood Urea Nitrogen 25H, Creatinine 1.7H, Estimat Glomerular Filtration Rate , Glucose Level 102, Calcium Level 9.5 Height (Feet): 5 Height (Inches): 8.00 Weight (Pounds): 184 General Appearance: no apparent distress Cardiovascular: normal rate Respiratory/Chest: decreased breath sounds Abdomen: soft Objective no change Ravi Kramer MD Apr 17, 2018 12:57
--- NOTE | 2018-04-17 13:43 | General Progress Note ---
Assessment/Plan Problem List: (1) Hypothyroid ICD Codes: E03.9 - Hypothyroidism, unspecified SNOMED: 90138669 (2) Dehydration ICD Codes: E86.0 - Dehydration SNOMED: 59957963 (3) UTI (urinary tract infection) ICD Codes: N39.0 - Urinary tract infection, site not specified SNOMED: 50997023 (4) Sepsis ICD Codes: A41.9 - Sepsis, unspecified organism SNOMED: 85037395 (5) Dementia ICD Codes: F03.90 - Dementia SNOMED: 80718953 (6) CHF (congestive heart failure) ICD Codes: I50.9 - Heart failure, unspecified SNOMED: 12193105 (7) A-fib ICD Codes: I48.91 - Unspecified atrial fibrillation SNOMED: 44562121 (8) HTN (hypertension) ICD Codes: I10 - Essential (primary) hypertension SNOMED: 66934149 (9) BPH (benign prostatic hyperplasia) ICD Codes: N40.0 - Enlarged prostate without lower urinary tract symptoms SNOMED: 950218661, 407390351 Status: stable, progressing Assessment/Plan ot pt diet abx dc if clear Subjective Constitutional: Reports: weakness Allergies: Coded Allergies: No Known Allergies (Verified , 01/31/08) All Systems: reviewed and negative except above Subjective sleepy calm in bed Objective Last 24 Hour Vital Signs Date Time Temp Pulse Resp B/P (MAP) Pulse Ox O2 Delivery O2 Flow Rate FiO2 04/17/18 11:54 98.8 67 20 139/70 (93) 96 98.8 04/17/18 09:00 Room Air 04/17/18 08:49 64 04/17/18 08:08 64 20 Room Air 21 04/17/18 08:00 98.2 71 20 128/62 (84) 96 98.2 04/17/18 06:04 128/77 04/17/18 04:00 98.2 72 18 125/75 (92) 99 98.2 04/17/18 00:00 99.2 70 18 125/72 (89) 100 99.2 04/16/18 21:59 129/68 04/16/18 21:00 Room Air 04/16/18 20:00 99.9 63 20 129/68 (88) 96 99.9 04/16/18 16:00 98.8 61 21 120/81 (94) 95 98.8 04/16/18 13:56 122/56 Intake and Output 04/16/18 04/17/18 19:00 07:00 Intake Total 640 ml Output Total 100 ml Balance 540 ml Intake Oral 640 ml Output Urine Total 100 ml # Voids 1 3 # Bowel Movements 2 3 Laboratory Tests 04/17/18 07:10: White Blood Count 10.1, Red Blood Count 4.10L, Hemoglobin 12.5L, Hematocrit 37.0L, Mean Corpuscular Volume 90, Mean Corpuscular Hemoglobin 30.5, Mean Corpuscular Hemoglobin Concent 33.8, Red Cell Distribution Width 11.2L, Platelet Count 198, Mean Platelet Volume 8.5, Neutrophils (%) (Auto) 80.5H, Lymphocytes (%) (Auto) 9.2L, Monocytes (%) (Auto) 7.2, Eosinophils (%) (Auto) 2.4, Basophils (%) (Auto) 0.7, Sodium Level 139, Potassium Level 3.9, Chloride Level 104, Carbon Dioxide Level 24, Anion Gap 11, Blood Urea Nitrogen 25H, Creatinine 1.7H, Estimat Glomerular Filtration Rate , Glucose Level 102, Calcium Level 9.5 Height (Feet): 5 Height (Inches): 8.00 Weight (Pounds): 184 General Appearance: lethargic EENT: normal ENT inspection Neck: normal alignment Cardiovascular: normal peripheral pulses, normal rate, regular rhythm Respiratory/Chest: chest wall non-tender, lungs clear, normal breath sounds Abdomen: normal bowel sounds, non tender, soft Extremities: normal inspection Edema: no edema noted Arm (L), no edema noted Arm (R), no edema noted Leg (L), no edema noted Leg (R), no edema noted Pedal (L), no edema noted Pedal (R), no edema noted Generalized Neurologic: motor weakness Skin: normal pigmentation, warm/dry Ricardo Ruiz DO Apr 17, 2018 13:43
--- NOTE | 2018-04-17 15:29 | Pulmonology Progress Note ---
Assessment/Plan Problems: (1) COPD with acute exacerbation (2) A-fib (3) HTN (hypertension) (4) CAD (coronary artery disease) (5) BPH (benign prostatic hyperplasia) (6) Dementia Assessment/Plan improving respiratory treatment titrate fio2 to sat of 92% check sputum monitor heart rate f/u electrolytes avoid nephrotoxic agents. pt/ot dc planning Subjective ROS Limited/Unobtainable: No Constitutional: Reports: no symptoms HEENT: Repors: no symptoms Respiratory: Reports: no symptoms Allergies: Coded Allergies: No Known Allergies (Verified , 01/31/08) Objective Last 24 Hour Vital Signs Date Time Temp Pulse Resp B/P (MAP) Pulse Ox O2 Delivery O2 Flow Rate FiO2 04/17/18 14:36 139/70 04/17/18 11:54 98.8 67 20 139/70 (93) 96 98.8 04/17/18 09:00 Room Air 04/17/18 08:49 64 04/17/18 08:08 64 20 Room Air 21 04/17/18 08:00 98.2 71 20 128/62 (84) 96 98.2 04/17/18 06:04 128/77 04/17/18 04:00 98.2 72 18 125/75 (92) 99 98.2 04/17/18 00:00 99.2 70 18 125/72 (89) 100 99.2 04/16/18 21:59 129/68 04/16/18 21:00 Room Air 04/16/18 20:00 99.9 63 20 129/68 (88) 96 99.9 04/16/18 16:00 98.8 61 21 120/81 (94) 95 98.8 Intake and Output 04/16/18 04/17/18 19:00 07:00 Intake Total 640 ml Output Total 100 ml Balance 540 ml Intake Oral 640 ml Output Urine Total 100 ml # Voids 1 3 # Bowel Movements 2 3 General Appearance: WD/WN Respiratory/Chest: chest wall non-tender, lungs clear Cardiovascular: normal peripheral pulses, normal rate Abdomen: normal bowel sounds, soft, non tender Extremities: no cyanosis Skin: no rash Laboratory Tests 04/17/18 07:10: White Blood Count 10.1, Red Blood Count 4.10L, Hemoglobin 12.5L, Hematocrit 37.0L, Mean Corpuscular Volume 90, Mean Corpuscular Hemoglobin 30.5, Mean Corpuscular Hemoglobin Concent 33.8, Red Cell Distribution Width 11.2L, Platelet Count 198, Mean Platelet Volume 8.5, Neutrophils (%) (Auto) 80.5H, Lymphocytes (%) (Auto) 9.2L, Monocytes (%) (Auto) 7.2, Eosinophils (%) (Auto) 2.4, Basophils (%) (Auto) 0.7, Sodium Level 139, Potassium Level 3.9, Chloride Level 104, Carbon Dioxide Level 24, Anion Gap 11, Blood Urea Nitrogen 25H, Creatinine 1.7H, Estimat Glomerular Filtration Rate , Glucose Level 102, Calcium Level 9.5 Current Medications Medications (Trade) Dose Ordered Sig/Brissa Route PRN Reason Start Time Stop Time Status Last Admin Dose Admin Acetaminophen (Tylenol) 650 mg Q4H PRN ORAL fever 04/16/18 19:00 05/13/18 18:59 Acetaminophen/ Hydrocodone Bitart ([place] 10/325) 1 tab Q4H PRN ORAL Moderate Pain (Pain Scale 4-6) 04/16/18 16:43 04/21/18 16:42 Albuterol/ Ipratropium (Albuterol/ Ipratropium) 3 ml Q4H PRN HHN Shortness of Breath 04/16/18 16:43 04/18/18 16:42 Amiodarone HCl (Cordarone) 200 mg DAILY ORAL 04/17/18 09:00 05/15/18 08:59 04/17/18 08:48 Amoxicillin/ Clavulanate Potassium (Augmentin) 875 mg EVERY 12 HOURS ORAL 04/16/18 21:00 04/21/18 11:29 04/17/18 08:48 Digoxin (Lanoxin) 0.125 mg DAILY ORAL 04/17/18 09:00 05/15/18 08:59 04/17/18 08:49 Docusate Sodium (Colace) 100 mg TWICE A DAY ORAL 04/16/18 18:00 05/14/18 17:59 04/17/18 08:48 Donepezil HCl (Aricept) 10 mg QHS ORAL 04/16/18 21:00 05/14/18 20:59 04/16/18 20:57 Finasteride (Proscar) 5 mg DAILY ORAL 04/17/18 09:00 05/15/18 08:59 04/17/18 08:48 Hydralazine HCl (Apresoline) 25 mg Q8HR ORAL 04/16/18 22:00 05/14/18 13:59 04/17/18 14:36 Levothyroxine Sodium (Synthroid) 50 mcg ACBREAKFAST ORAL 04/17/18 06:30 05/15/18 06:29 04/17/18 06:00 Lorazepam (Ativan) 0.5 mg Q6H PRN ORAL For Anxiety 04/16/18 22:15 04/21/18 04:14 Ondansetron HCl (Zofran) 4 mg Q6H PRN IVP Nausea & Vomiting 04/16/18 19:00 05/13/18 18:59 Pantoprazole (Protonix) 40 mg DAILY ORAL 04/17/18 09:00 05/14/18 15:14 04/17/18 08:49 Polyethylene Glycol (Miralax) 17 gm DAILYPRN PRN ORAL Constipation 04/16/18 19:00 05/13/18 18:59 Rivaroxaban (Xarelto) 15 mg QPM ORAL 04/17/18 16:30 05/14/18 16:29 Tamsulosin HCl (Flomax) 0.4 mg QHS ORAL 04/16/18 21:00 05/14/18 20:59 04/16/18 20:57 Temazepam (Restoril) 15 mg HSPRN PRN ORAL Insomnia 04/16/18 19:00 04/20/18 18:59 Toney Narayan MD Apr 17, 2018 15:29
[2018-04-17 16:00] VITALS: BP 136/65
[2018-04-17] MEDS ORDERED: Xarelto 15mg tab ORAL SCH (16:30)
[2018-04-17] MEDS ORDERED: AUGMENTIN 875-1 EAC1 ORAL (18:17)
[2018-04-17] MEDS ORDERED: PROTONIX40 MG ORAL (18:29)
[2018-04-17] MEDS ORDERED: HYDRALAZINE HCL25 M1 ORAL (18:30)
[2018-04-17] MEDS ORDERED: ZOFRAN4 M3 ORAL (18:31)
[2018-04-17] MEDS ORDERED: RESTORIL15 MG ORAL (18:32)
[2018-04-17] MEDS ORDERED: COLACE100 MG ORAL (18:33)
--- NOTE | 2018-04-17 19:00 | Consultation ---
DATE OF CONSULTATION: 04/16/2018 PSYCHOTHERAPY CONSULTATION PROGRESS NOTE CONSULTING PHYSICIAN: Kostas Villagomez M.D. TREATING ATTENDING PHYSICIAN: Ricardo Ruiz M.D. HISTORY: This patient is a male patient, who is 87-year-old from [facility], was brought into the hospital for weakness and hypotension. The patient has been confused with disorganized mood psychotherapeutic services. helpless, disorganized, altered in his mental status. The patient has been very forgetful. However, he is is able to communicate. He is able to verbalize his needs. The patient was attempting to . The patient has been . The patient denies suicidal or homicidal thoughts of ideation. There is no indication of auditory or visual hallucinations. PAST MEDICAL HISTORY: History of hypertension, atrial fibrillation, DVT, history of CHF, and hypothyroidism. ALLERGIES: The patient has no known allergies. SUBSTANCE ABUSE HISTORY: There is no history of alcohol use, illicit substance use, or smoking cigarettes. PSYCHIATRIC HISTORY: The patient has a history of depression and anxiety. SOCIAL HISTORY: The patient is a 87-year-old male patient from [facility]. Financially sustained through [employer] MENTAL STATUS EXAMINATION: The patient is alert and oriented to person and place. His mood is irritable. Affect is blunted. Thought process, disorganized. Thought content, confused. The patient has poor attention and concentration. poor insight, judgment, and impulse control. The patient is able to communicate provide the patient with supportive psychotherapy cognitive behavioral interventions. with coping skills, . DIAGNOSIS: Depressive disorder, recurrent, severe with psychotic features. Continue . I want to thank, Dr. Ricardo Ruiz and Dr. Kip Miller, for this consultation hospital. Kostas Villagomez PsyD. DR: JOHN JOB#: [id number] CC:
[2018-04-17 20:00] VITALS: BP 124/64
--- NOTE | 2018-04-18 01:30 | Consultation ---
DATE OF CONSULTATION: 04/17/2018 CONSULTING PHYSICIAN: Kip Miller M.D. HISTORY: The patient is a 87-year-old male patient with weakness and agitation. He continues to be confused, disorganized, mood labile, he has no logical plan for his own self-care. Feelings of helplessness, hopelessness, low energy, poor appetite, and loss of interest in activity. He denies suicidal or homicidal thoughts. He is irritable, agitated, confused, his cognition has declined below baseline. That is why his attending has requested daily psychiatric consultation. MENTAL STATUS EXAMINATION: An 87-year-old male. Appearance is disheveled. Attitude is irritable and agitated. Affect is guarded and restricted. Intellect poor. Mood depressed and anxious. Motor activity, psychomotor agitation. Attention span is poor. Orientation x2. Speech is pressured. Thought process, disorganized and illogical. Thought content, auditory hallucinations and paranoid delusions. Insight and judgement is poor. DIAGNOSIS: Paranoid schizophrenia, . Rule out . PLAN: Treat the patient with Aricept 10 mg at bedtime, Ativan 0.5 mg every 6 hours p.r.n. anxiety and agitation. Provided 20 minutes of cognitive behavioral therapy to help this patient identify automatic negative thoughts and help him to convert them to more positive thoughts. Chart reviewed. Discussed with staff. A 20 minutes of cognitive behavioral therapy provided. Kip Miller M.D. DR: AYESHA JOB#: [id number] CC:
--- NOTE | 2018-04-18 09:36 | Discharge Summary ---
Discharge Summary Discharge Summary _ DATE OF ADMISSION: 04/13/2018 DATE OF DISCHARGE: 04/17/2018 CONSULTANTS: Dr. Kip Ribeiro BRIEF HOSPITAL COURSE: Patient is an 87-year-old male, from [facility], presented to ED due to dark brown urine for 2 days. Patient was noted to have increased confusion and foul-smelling urine. Denied any vomiting or diarrhea. Denied back or flank pain. He has history of dementia, coronary artery disease , CKD and DVT. On evaluation at ED, vital signs were stable. Blood work showed leukocytosis, WBC was elevated to 14. Creatinine was elevated to 2 and BUN was 44. Urinalysis showed WBC 5-10, RBC 30-40, leukocyte esterase 3+. Chest x-ray showed no acute disease. EKG was in normal sinus rhythm with non specific ST to T wave changes. He was started on IV Rocephin. He was admitted for sepsis likely secondary to UTI. He was seen by infectious disease specialist. Patient was given vancomycin and cefepime. On examination, he was found to have multiple open wounds. Surgical evaluation was done. Patient came in with full-thickness stage III decubitus ulcer on the left buttock. There was resolving pressure injury to the right buttocks. He had full-thickness pressure injury at the base of the scrotum and a reabsorbed blood blister on the left lateral heel with a dry eschar on left medial heel. He was given wound care. He was placed on frequent turning and repositioning schedule and offloading. Patient had chronic kidney disease, most likely due to hypertension superimposed by dehydration. Patient was on diuretics. Zaroxolyn was discontinued. Renal ultrasound was essentially unremarkable. Patient had acute exacerbation of COPD. He was given respiratory treatments. Patient had altered mental status. Psychiatric consultation was requested. Patient was confused and had poor insight. He was diagnosed with major depressive disorder, mild, recurrent with psychotic features. He was also diagnosed with paranoid schizophrenia. He was given Aricept 10 mg at bedtime and was started on Ativan q 6 hours prn anxiety and agitation. Urine culture showed growth of Escherichia coli which is pansensitive. Blood culture did not isolate any growth. Cefepime and vancomycin was discontinued. Patient was given Augmentin by mouth. Wound culture with growth of Pseudomonas and group B strep. Wounds not likely currently infected. He was [facility]. FINAL DIAGNOSES: Sepsis, likely secondary to UTI Escherichia coli UTI Multiple right buttock and testicular wounds, present on admission Acute COPD exacerbation Atrial fibrillation Hypertension Urinary artery disease BPH Dementia Paranoid schizophrenia Major depressive disorder Acute on chronic renal failure Chronic kidney disease most likely due to hypertension superimposed on dehydration Malnutrition with low albumin History of right lower extremity cellulitis History of right lower extremity DVT DISPOSITION: Patient was discharged to [facility]. DISCHARGE MEDICATIONS: Refer to Discharge Medication List. Continue Augmentin 875 mg by mouth twice a day until 04/21/2018. I have been assigned to dictate discharge summary on this account, and I was not involved in the patient's management. Janet De La O NP Apr 18, 2018 09:36
--- NOTE | 2018-04-18 14:12 | Cardiology Report ---
APPROVED REPORT EKG Measurement Heart [id number] Normal sinus rhythm Incomplete right bundle branch block Prolonged QT Abnormal ECG
--- NOTE | 2018-04-18 15:37 | Cardiology Report ---
APPROVED REPORT EXAM: Two-dimensional and M-mode echocardiogram with Doppler and color Doppler. INDICATION Congestive Heart Failure M-Mode DIMENSIONS IVSd1.1 (0.7-1.1cm)Left Atrium (MM)5.4 (1.6-4.0cm) LVDd4.7 (3.5-5.6cm)Aortic Root2.8 (2.0-3.7cm) PWd1.3 (0.7-1.1cm)Aortic Cusp Exc.1.6 (1.5-2.0cm) LVDs3.0 (2.5-4.0cm) PWs1.2 cm Normal left ventricular chamber size, systolic function and wall motion. Left ventricular ejection fraction estimated to be 60-65%. No evidence of left ventricular hypertrophy. No evidence of pericardial or pleural effusion. Right cardiac chamber sizes are within normal limits. Mild left atrial enlargement by 2D. Focal aortic valve sclerosis with adequate cusp excursion. Thickened mitral valve leaflets with normal excursion. Mild mitral annulus and aortic root calcification. Pulmonic valve is well visualized. Normal tricuspid valve structure. IVC and subcostal not obtainble. A color flow and spectral Doppler study was performed and revealed: No aortic regurgitation. Mild mitral regurgitation. Normal mitral diastolic function. Trace tricuspid regurgitation. Tricuspid systolic velocities suggests peak right ventricular systolic pressure of 31 mmHg Pulmonic regurgitation present.
== END 2018-04-17 20:50 | DRG 871 ==
LOC: EDBD 14:56 → EDBEDREQ 15:22 → EMR 15:30 → 2E 15:53 → EDBEDREQ 16:00 → 2E 16:59 → 4E 04-16 16:26
DX: A41.9 Sepsis, unspecified organism (principal); L89.153 Pressure ulcer of sacral region, stage 3; R53.2 Functional quadriplegia; N39.0 Urinary tract infection, site not specified; E46 Unspecified protein-calorie malnutrition; J44.1 Chronic obstructive pulmonary disease with (acute) exacerbation; F33.3 Major depressive disorder, recurrent, severe with psychotic symptoms; F20.0 Paranoid schizophrenia; I48.91 Unspecified atrial fibrillation; I11.0 Hypertensive heart disease with heart failure; E03.9 Hypothyroidism, unspecified; B96.20 Unspecified Escherichia coli [E. coli] as the cause of diseases classified elsewhere; N40.0 Benign prostatic hyperplasia without lower urinary tract symptoms; F03.90 Unspecified dementia, unspecified severity, without behavioral disturbance, psychotic disturbance, mood disturbance, and anxiety; E86.0 Dehydration; Z86.718 Personal history of other venous thrombosis and embolism; I25.2 Old myocardial infarction; L89.329 Pressure ulcer of left buttock, unspecified stage; L89.319 Pressure ulcer of right buttock, unspecified stage; L89.899 Pressure ulcer of other site, unspecified stage
CPT/HCPCS: 36415; 71045; 76770; 80048; 80053; 80061; 81003; 82550; 82553; 82607; 82728; 82746; 82977; 83036; 83735; 83880; 84100; 84443; 84484; 84550; 85007; 85025; 86140; 87040; 87070; 87081; 87086; 87181; 87205; 93005; 93306; 94664; J8499